=== PATIENT | male | born 1935 | race Caucasian/White ===

== ENCOUNTER 2017-11-24 19:19 | Inpatient (IN) ==
[2017-11-24] MEDS ORDERED: *HR* Midazolam HCl 2 MG/2 ML VIAL ONE (19:46)
--- NOTE | 2017-11-24 20:43 | Cardiology Consult Note ---
Date of Encounter: 11/24/17 Time of Encounter: 20:40 Assessment and Plan (1) Asystole Current Visit: Yes Status: Acute TVP placed in the ED through RIJ access. Rate 60bpm, 5ma output, .8 sensitivity. Position confirmed in the RV apex on Cxray Hold BB PPM in am (2) Syncope and collapse Current Visit: Yes Status: Acute Likely SSS with h/o Afib, hold BB Discussion w patient/family: The assessment and plan as outlined above was discussed with the patient and/or family members who expressed understanding and agreement. All questions were answered. Thank you for involving us in the care of your patient. Please call with any questions. History of Present Illness Consult date: 11/24/17 Consult reason: Syncope Chief complaint: Passed out History of present illness: Mr. Kenyon is a 81 year old male with h/o Afib on xarelto presents with syncope and severe bradycardia. Long pauses and periods of asystole noted on monitor, patient was started on levo for pressure support. Continued to have significant pauses deemed high risk and so TVP placed in the ED. ED Dr. David placed IJ cordis and TVP wire was advanced to 43 cm with capture. Sensitivity at .8 rate at 60 bpm and output at 5 ma. Patient tolerated procedure well, Cxray shows Pacer wire in the RV apex Past Med Surg Social Fam HX - Past Medical History Medical history: atrial fibrillation, COPD, hyperlipidemia, other Psychiatric history: no psych history - Social History Smoking Status: Former smoker Smokeless Tobacco Status: No Alcohol use: none Drug use: none Medications and Allergies Atorvastatin [Lipitor] 20 mg PO HS 12/02/15 [History] Rivaroxaban [Xarelto] 20 mg PO DAILY 12/02/15 [History] Albuterol Sulfate [Proair Hfa] 2 puff IH Q4H PRN 11/09/17 [History] Cholecalciferol (Vitamin D3) [Vitamin D3] 2,000 unit PO DAILY 11/09/17 [History] Metoprolol Succinate [Toprol Xl] 25 mg PO DAILY 11/09/17 [History] Tiotropium [Spiriva] 18 mcg IH 0700 11/09/17 [History] 3 Allergy/AdvReac Type Severity Reaction Status Date / Time codeine AdvReac Confusion Verified 08/16/16 12:48 brown cloth tape Allergy Rash Uncoded 11/09/17 13:00 All Systems Review: The remainder of the systems were reviewed and are negative Physical Examination Vital Signs, Last 4 Hours Temp Pulse Resp BP Pulse Ox 11/24/17 20:29 79 18 173/71 96 11/24/17 20:24 73 18 173/67 95 11/24/17 20:17 55 18 156/71 96 11/24/17 20:07 54 18 169/75 97 11/24/17 19:58 39 18 135/71 94 11/24/17 19:50 29 18 174/111 95 11/24/17 19:43 31 18 170/69 95 11/24/17 19:20 98.1 F 31 18 101/75 96 General: Conversant, No Apparent Distress HEENT: Atraumatic, Normocephaly, Mucus Membranes Moist Neck: No JVD, Normal carotid pulses Cardiac: Reg Rate and Rhythm, Normal S1 and S2, No Murmur Lungs: Normal Breath Sounds, No Wheeze, Rales, Rhonchi Neuro: Alert and responsive, No focal deficits noted Abdomen: Soft, Non-Tender Skin: No rashes noted on visualized skin Musculoskeletal: No Chest Wall Tenderness Extremities: No Clubbing, No Cyanosis, No Edema, Normal Pulses Consult Discharge Plan - Plan Referrals: Robert Martinez MD [Primary Care Provider] -
[2017-11-24 20:48] LABS: Basophils % 0.3 %; Eosinophils % 0.2 %; Hematocrit 46.7 % (37.5-50.1); Hemoglobin 15.6 g/dL (12.9-16.9); Immature Granulocytes % 0.5 % (0-4); Lymphocytes # 1.2 K/mcL (0.6-4.6); Lymphocytes % 14.1 %; Mean Corpuscular HGB Conc 33.4 g/dL (31.6-35.5); Mean Corpuscular Volume 86.8 fL (83.0-100.0); Mean Platelet Volume 10.7 fL (9.4-12.4); Monocytes # 0.6 K/mcL (0.0-1.3); Monocytes % 6.3 %; Neutrophils # 6.9 K/mcL (1.6-8.9); Platelet Count 201 K/mcL (140-400); Red Blood Count 5.38 M/mcL (4.19-5.50); Red Cell Distribution Width 13.7 % (11.5-14.5); Segmented Neutrophils % 78.6 %
[2017-11-24 20:55] LABS: INR 2.3; Prothrombin Time 24.8 Seconds (9.4-12.1)
[2017-11-24 20:58] LABS: Activated Partial Thrombo Time 37.2 Seconds (26.0-36.0)
[2017-11-24 21:00] LABS: BUN/Creatinine Ratio 23 (6-26); Blood Urea Nitrogen 20 mg/dL (8-23); Calcium 9.3 mg/dL (8.6-10.3); Carbon Dioxide 27 mEq/L (23-29); Chloride 104 mEq/L (98-107); Glucose 188 mg/dL (70-105); Osmolality,Calculated 292 (280-300); Potassium 4.6 mEq/L (3.5-5.1); Sodium 137 mEq/L (136-145); eGFR For Non-African Americans > 60 (> 60)
[2017-11-24] MEDS ORDERED: Lidocaine/EPI 1:100k 1% 20 ML VIAL INFILT STA (21:28)
--- NOTE | 2017-11-24 22:45 | Internal Med History&Physical ---
<Ceci Chin - Last Filed: 11/24/17 22:45> Date of Encounter: 11/24/17 Time of Encounter: 22:30 Assessment and Plan (1) Asystole Current visit: Yes Status: Acute Transcutaneous venous pacer was placed in his right IJ in ED. HR recorded as low as 29. In ED patient reportedly had long pauses and periods of asystole noted on monitor. He was given epi for pressure support Dr. Crump to place permanent pacemaker in morning NPO after midnight tele monitoring hold beta fox hold Xarelto (2) Syncope and collapse Current visit: Yes Status: Acute History of A fib. Likely sick sinus syndrome Syncopal episode at home at approximately 6:30 PM while he was standing up urinating and then woke up on the floor. He hit his head on the door. He denied any symptoms prior to syncopal episode. For the past year he has had episodes of "blacking out" where he becomes diaphoretic, lightheaded, warm sensation in chest. This is the 1st time he has passed out. EMS was called this morning where he had an episode by he was sitting on the couch however upon their arrival he felt back to normal and refusing to the hospital. Patient denies headache, neck pain. Head CT- no intracranial abnormality cervical spine CT normal CXR no acute cardiopulmonary process -holding Xarelto and beta fox (3) A-fib Current visit: Yes Status: Acute History of A fib on Toprol and Xarelto holding Xarelto Qualifiers: Qualified Code(s): I48.91 - Unspecified atrial fibrillation (4) COPD (chronic obstructive pulmonary disease) Current visit: Yes Status: Acute History of COPD taking Spiriva and pro-air as needed. 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 Decadron is listed in his home meds but he denies taking that. SPO2 95% on room air denies dyspnea or cough decreased breath sounds bilaterally, no wheezing or rhonchi continue dunebs and spiriva Qualifiers: Qualified Code(s): J44.9 - Chronic obstructive pulmonary disease, unspecified (5) Hyperlipidemia Current visit: Yes Status: Acute Continue home atorvastatin Qualifiers: Qualified Code(s): E78.5 - Hyperlipidemia, unspecified (6) DVT prophylaxis Current visit: Yes Status: Acute Heparin sq after permanent TVP is placed tomorrow Internal Medicine - H&P: HPI Chief complaint: syncope Admitted From: Emergency Dept Plans for Post Hospital Care: Home History of present illness: Mr. Kenyon is a 81 year old male PMH COPD, hyperlipidemia, A fib on xarelto who presented to [facility] after syncopal episode at home that occurred around 6:30pm. He stated that he was standing up urinating when all of a sudden he woke up on the ground. He had hit his head on the bathroom door. He does not recall the fall or any prior symptoms, his then called EMS. This is the 1st time that he has had a syncopal episode where he he has fallen. He stated that around 2pm today he was sitting on the couch when he became very diaphoretic and lightheaded. EMS was called and upon their arrival the patient was starting to feel normal again so he refused to go to the hospital. He reported that he has been having these symptoms for the past year where he "blacks out" and becomes diaphoretic, lightheaded, dizzy, sensation of warmth in his chest but she has never fallen. He was at [facility] ED 2 weeks ago for similar symptoms where they found he was bradycardiac and they monitored him for a while after which his heart rate improved and he was sent home. He denies chest pain, palpitations, dizziness, change in vision, fever, chills, shortness of breath, cough, nausea, vomiting, abdominal pain, urinary changes, diarrhea. He denies HI, stroke, recent travel, sickness, sick contacts. He is a former smoker that quit in 1972 but has worked around asbestos, denied drug and alcohol use. His alongside family members who help to corroborate the history. Upon examination the patient had been evaluated by cardiology Dr. Crump and a transcutaneous venous pacer was placed in his right IJ. HR recorded as low as 29. In ED patient reportedly had long pauses and periods of asystole noted on monitor. He was given epi for pressure support. Head CT and cervical spine CT were both normal. Chest x-ray showed no acute cardiopulmonary process. He is to be admitted to the ICU. He is a full code. Past Med Surg Social Fam HX - Past Medical History Medical history: atrial fibrillation, cancer (Melanoma on right temporal aspect of head), COPD, hyperlipidemia, other Psychiatric history: no psych history - Social History Smoking Status: Former smoker Smokeless Tobacco Status: No Alcohol use: none Drug use: none Current living situation: Home Activity Level: Independent ambulation - Family History Mother Hx Family Cancer: Yes (Leukemia) Internal Medicine - H&P: Meds Atorvastatin [Lipitor] 20 mg PO HS 12/02/15 [History] Rivaroxaban [Xarelto] 20 mg PO DAILY 12/02/15 [History] Albuterol Sulfate [Proair Hfa] 2 puff IH Q4H PRN 11/09/17 [History] Cholecalciferol (Vitamin D3) [Vitamin D3] 2,000 unit PO DAILY 11/09/17 [History] Metoprolol Succinate [Toprol Xl] 25 mg PO DAILY 11/09/17 [History] Tiotropium [Spiriva] 18 mcg IH 0700 11/09/17 [History] Ciclopirox Olamine [Ciclopirox] 1 appl TP BID PRN 11/24/17 [History] Dexamethasone [Decadron] 4 mg PO QAM 11/24/17 [History] Furosemide [Lasix] 20 mg PO DAILY PRN 11/24/17 [History] Triamcinolone Acet 0.1% CRM [Kenalog] 1 appl TP BID PRN 11/24/17 [History] 3 Allergy/AdvReac Type Severity Reaction Status Date / Time codeine AdvReac Confusion Verified 08/16/16 12:48 brown cloth tape Allergy Rash Uncoded 11/09/17 13:00 All Systems PM: A 10-system review of systems was performed and is negative for pertinent findings except as documented above in the HPI. - Constitutional Constitutional: falls, no chills, no fatigue, no fever(s) - EENT Eyes: no change in vision - Cardiovascular Cardiovascular ROS IM: diaphoresis, lightheadedness, syncope, no chest pain, no dyspnea, no palpitations - Respiratory Respiratory: no cough, no dyspnea, no wheezing - Gastrointestinal Gastrointestinal: no abdominal pain, no nausea, no vomiting - Genitourinary Genitourinary ROS male: no difficulty urinating - Integumentary Integumentary IM: rash (Right ankle) - Neurological Neurological ROS: frequent falls, no abnormal hearing, no abnormal speech, no behavioral changes, no confusion, no convulsions, no headache(s), no numbness, no tingling - Constitutional Vitals: Temp Pulse Resp BP Pulse Ox 98.1 F 79 18 158/47 95 11/24/17 19:20 11/24/17 22:01 11/24/17 22:01 11/24/17 22:01 11/24/17 22:01 General appearance: Present: A&O X 3, pleasant, no acute distress, answers questions appropriately - Head Head exam: Present: normocephalic. Absent: atraumatic (Abrasion on left temporal aspect of head), normal inspection - Expanded Head Exam Head exam expanded: Present: abrasion. Absent: general tenderness, hematoma, raccoon eyes - Neck Neck exam general surgery: Absent: tenderness - Respiratory Respiratory exam: Present: decreased breath sounds. Absent: rales, rhonchi - Cardiovascular Cardiovascular exam: Present: bradycardia. Absent: clicks - GI/Abdominal GI/Abdominal exam: Present: normal bowel sounds, soft. Absent: tenderness - Extremities Exam Extremities exam: Present: pedal edema (Bilateral lower extremity edema). Absent: calf tenderness, tenderness - Back Exam Back exam: Present: normal inspection - Neurological Exam Neurological exam: Present: alert, oriented X3. Absent: pronater drift, facial droop, speech deficit - Psychiatric Psychiatric exam: Present: normal affect, normal mood - Skin Skin exam: Present: dry, erythema (Right ankle), intact Internal Med - H&P Results - Labs CBC & Chem 7: 11/24/17 19:42 11/24/17 19:42 Labs: Short CBC 11/24/17 Range/Units 19:42 WBC 8.8 (4.3-11.1) K/mcL Hgb 15.6 (12.9-16.9) g/dL Hct 46.7 (37.5-50.1) % Plt Count 201 (140-400) K/mcL Neutrophils # 6.9 (1.6-8.9) K/mcL BMP 11/24/17 19:42 Sodium 137 Potassium 4.6 Chloride 104 Carbon Dioxide 27 BUN 20 Creatinine 0.88 Glucose 188 H Calcium 9.3 Cardiac Enzymes 11/24/17 Range/Units 19:42 Troponin I < 0.03 (< 0.04) ng/mL - Impressions ITS Impressions Chest X-Ray 11/24/17 20:37 IMPRESSION: New right IJ pacer and small right effusion. No pneumothorax. D/ / Ha Brady MD / Ha Brady MD Interpreting Provider: Ha Brady MD Cervical Spine CT 11/24/17 20:52 IMPRESSION: No acute abnormality of the cervical spine. Multiple subcentimeter nonspecific lymph nodes scattered throughout the neck. D/ / Kostas Brice MD / Kostas Brice MD Interpreting Provider: Kostas Brice MD Head CT 11/24/17 20:52 IMPRESSION: No acute intracranial abnormality. Stable age-appropriate atrophy. D/ / Marisol Hayward MD / Marisol Hayward MD Interpreting Provider: Marisol Hayward MD <Ronak Morrell - Last Filed: 11/25/17 06:40> Date of Encounter: 11/25/17 Internal Medicine - H&P: HPI History of present illness: Mr. Kenyon is a 81 year old male All Systems PM: A 10-system review of systems was performed and is negative for pertinent findings except as documented above in the HPI. - Constitutional Vitals: Temp Pulse Resp BP Pulse Ox 98.2 F 88 17 156/78 94 11/25/17 05:27 11/25/17 06:00 11/25/17 06:00 11/25/17 06:00 11/25/17 06:00 Internal Med - H&P Results - Labs CBC & Chem 7: 11/24/17 19:42 11/24/17 19:42 - Attending Attestation I have seen and examined this patient independently. I have discussed with resident physician Dr. Chin regarding the management plan. Agree with the documentation.
--- NOTE | 2017-11-24 22:54 | Emergency Department Note ---
Disposition Clinical Impression: Symptomatic bradycardia, Asystole Syncope Qualifiers: Syncope type: unspecified Qualified Code(s): R55 - Syncope and collapse Head trauma Qualifiers: Encounter type: initial encounter Qualified Code(s): S09.90XA - Unspecified injury of head, initial encounter Disposition: Admitted As Inpatient Condition: Good Time of Disposition: 21:20 General Adult HPI - General Chief complaint: ED Dizziness Stated complaint: dizzy, bradycardia, fell Time Seen by Provider: 11/24/17 20:37 Source: patient, EMS Limitations: no limitations Nursing Notes Reviewed: Yes Vital Signs Reviewed: Yes - History of Present Illness HPI Narrative: 81-year-old male presents to emergency department after a syncopal episode. On initial evaluation patient is bradycardic. Patient states he had recently finished using the commode when he suddenly syncopized and woke up on the ground. During initial evaluation the patient is bradycardic with an irregular rhythm. While in the emergency department he had multiple episodes of asystole where he syncopized however this lasted a few seconds before he woke. The concrete wall grinder operator was contacted immediately after the initial evaluation. Patient was initially given atropine 0.5 mg 3 doses without significant improvement of his symptoms. Patient was then started on epi drip and he did not have further episodes of asystole. Cardiology arrived at bedside and evaluated the patient. I placed a [place]-Carlos catheter with the help of the concrete wall grinder operator after verbal and written consent obtained from patient after discussion of risks and benefits. Pain Scale: 0 - Related Data Home Medications Medication Instructions Recorded Confirmed Atorvastatin [Lipitor] 20 mg PO HS 12/02/15 11/24/17 Rivaroxaban [Xarelto] 20 mg PO DAILY 12/02/15 11/24/17 Albuterol Sulfate [Proair Hfa] 2 puff IH Q4H PRN 11/09/17 11/24/17 Cholecalciferol (Vitamin D3) 2,000 unit PO DAILY 11/09/17 11/24/17 [Vitamin D3] Metoprolol Succinate [Toprol Xl] 25 mg PO DAILY 11/09/17 11/24/17 Tiotropium [Spiriva] 18 mcg IH 0700 11/09/17 11/24/17 Ciclopirox Olamine [Ciclopirox] 1 appl TP BID PRN 11/24/17 11/24/17 Dexamethasone [Decadron] 4 mg PO QAM 11/24/17 11/24/17 Furosemide [Lasix] 20 mg PO DAILY PRN 11/24/17 11/24/17 Triamcinolone Acet 0.1% CRM 1 appl TP BID PRN 11/24/17 11/24/17 [Kenalog] Allergies Allergy/AdvReac Type Severity Reaction Status Date / Time codeine AdvReac Confusion Verified 08/16/16 12:48 brown cloth tape Allergy Rash Uncoded 11/09/17 13:00 All systems ED: reviewed and negative except as stated. Review of Systems: As Per HPI Past Medical History - Past Medical History Attestation: Yes The following information was validated with the patient. Source: patient Medical history: Reports: atrial fibrillation, COPD, hyperlipidemia, other Psychiatric history: Reports: no psych history - Social History Smoking Status: Former smoker Smokeless Tobacco Status: No Alcohol use: Reports: none Drug use: Reports: none Physical Exam General: Alert and in no acute distress Skin: Warm, dry Head: Normocephalic, laceration to occiput from fall Neck: Supple, trachea midline and no tenderness Cardiovascular: Bradycardia with episodes of asystole Respiratory: CTAB, no wheezing, cough, or respiratory distress Musculoskeletal: Normal strength, no tenderness, swelling or deformity GI: Soft, nontender, nondistended. Bowel sounds present Neuro: A&O to person, place, time and situation. Psychiatric: cooperative and appropriate mood and affect. - General Limitations: no limitations General appearance: alert, in no apparent distress Course Vital Signs Temperature 98.1 F 11/24/17 19:20 Pulse Rate 31 11/24/17 19:20 Respiratory Rate 18 11/24/17 19:20 Blood Pressure 101/75 11/24/17 19:20 O2 Sat by Pulse Oximetry 96 11/24/17 19:20 Temperature 98.1 F 11/24/17 19:20 Pulse Rate 79 11/24/17 22:01 Respiratory Rate 18 11/24/17 22:01 Blood Pressure 158/47 11/24/17 22:01 O2 Sat by Pulse Oximetry 95 11/24/17 22:01 Oxygen Delivery Oxygen Delivery Room Air Procedures - Laceration Laceration 1 Site: scalp Side (If applicable): left Size (cm): 3 Description: linear Depth: simple, single layer Local Anesthetic: lidocaine 1%, with epi Amount of Anesthesia Used (mL): 10 Skin layer closed with: denise Number of sutures/denise: 5 Technique: simple, interrupted - Ultrasound-Other Narrative: Procedure: Internal jugular central venous catheter, US guided. [place]-Carlos catheter Indication: Hypotension, bradycardia Consent: Written consent obtained after discussion of risks and benefits Procedure summary: Hands washed prior to procedure. Time out was performed. The patient's right neck was prepped and draped in sterile fashion using chlorhexidine scrub. Anesthesia was achieved with 1% lidocaine. The right internal jugular vein was accessed under ultrasound guidance using a finder needle and sheath. A guidewire was advanced through the sheath. A small incision was made with a 10 blade scalpel and the sheath was exchanged for a dilator over the guidewire until appropriate dilation was obtained. The dilator was removed leaving intact Cortis lumen. S1 Carlos catheter was then inserted, the balloon was inflated and floated to the right ventricle receiving capture. At time of procedure completion, all ports aspirated and flushed properly. Full sterile gowning and draping used during procedure. Postprocedure x-ray shows the tip of the catheter within the right ventricle Complications: None Estimated blood loss: 5 mL Medical Decision Making - Lab Data Result diagrams: 11/24/17 19:42 11/24/17 19:42 Lab Results 11/24/17 11/24/17 11/24/17 Range/Units 19:42 19:42 19:42 WBC 8.8 (4.3-11.1) K/mcL RBC 5.38 (4.19-5.50) M/mcL Hgb 15.6 (12.9-16.9) g/dL Hct 46.7 (37.5-50.1) % MCV 86.8 (83.0-100.0) fL MCH 29.0 (28.0-33.3) pg MCHC 33.4 (31.6-35.5) g/dL RDW 13.7 (11.5-14.5) % Plt Count 201 (140-400) K/mcL MPV 10.7 (9.4-12.4) fL Immature Gran % 0.5 (0-4) % Seg Neutrophils % 78.6 % Lymphocytes % 14.1 % Monocytes % 6.3 % Eosinophils % 0.2 % Basophils % 0.3 % Neutrophils # 6.9 (1.6-8.9) K/mcL Lymphocytes # 1.2 (0.6-4.6) K/mcL Monocytes # 0.6 (0.0-1.3) K/mcL Eosinophils # 0.0 (0.0-0.6) K/mcL Basophils # 0.0 (0.0-0.2) K/mcL PT 24.8 H (9.4-12.1) Seconds INR 2.3 APTT 37.2 H (26.0-36.0) Seconds Sodium 137 (136-145) mEq/L Potassium 4.6 (3.5-5.1) mEq/L Chloride 104 (98-107) mEq/L Carbon Dioxide 27 (23-29) mEq/L BUN 20 (8-23) mg/dL Creatinine 0.88 (0.70-1.30) mg/dL Est GFR ( Amer) > 60 (> 60) Est GFR (Non-Af Amer) > 60 (> 60) BUN/Creatinine Ratio 23 (6-26) Glucose 188 H (70-105) mg/dL Calculated Osmolality 292 (280-300) Calcium 9.3 (8.6-10.3) mg/dL Troponin I (< 0.04) ng/mL 11/24/17 Range/Units 19:42 WBC (4.3-11.1) K/mcL RBC (4.19-5.50) M/mcL Hgb (12.9-16.9) g/dL Hct (37.5-50.1) % MCV (83.0-100.0) fL MCH (28.0-33.3) pg MCHC (31.6-35.5) g/dL RDW (11.5-14.5) % Plt Count (140-400) K/mcL MPV (9.4-12.4) fL Immature Gran % (0-4) % Seg Neutrophils % % Lymphocytes % % Monocytes % % Eosinophils % % Basophils % % Neutrophils # (1.6-8.9) K/mcL Lymphocytes # (0.6-4.6) K/mcL Monocytes # (0.0-1.3) K/mcL Eosinophils # (0.0-0.6) K/mcL Basophils # (0.0-0.2) K/mcL PT (9.4-12.1) Seconds INR APTT (26.0-36.0) Seconds Sodium (136-145) mEq/L Potassium (3.5-5.1) mEq/L Chloride (98-107) mEq/L Carbon Dioxide (23-29) mEq/L BUN (8-23) mg/dL Creatinine (0.70-1.30) mg/dL Est GFR ( Amer) (> 60) Est GFR (Non-Af Amer) (> 60) BUN/Creatinine Ratio (6-26) Glucose (70-105) mg/dL Calculated Osmolality (280-300) Calcium (8.6-10.3) mg/dL Troponin I < 0.03 (< 0.04) ng/mL Critical Care Time Critical Care Time: Yes Total Critical Care Time: 64 Attestation: The high probability of a clinically significant, sudden or life threatening deterioration of the cardiovascular system(s) required my full and direct attention, intervention and personal management. The aggregate critical care time was 64 minutes. This time is in addition to time spent performing reported procedures but includes the following: x Data Review and interpretation x Patient assessment and monitoring of vital signs x Documentation x Medication orders and management
[2017-11-24] MEDS ORDERED: Naloxone 0.4 MG/ML INJ IVP PRN (23:10)
[2017-11-24] MEDS ORDERED: Ipratropium/Albuterol Neb 3 ML IH PRN (23:13)
--- NOTE | 2017-11-25 08:33 | Internal Med Progress Note ---
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 today Qualifiers: Atrial fibrillation type: chronic Qualified Code(s): I48.2 - Chronic atrial fibrillation (4) Hyperlipidemia Current Visit: Yes Status: Chronic Assessment and plan: Chronic questionable medication Qualifiers: Hyperlipidemia type: pure hypercholesterolemia Qualified Code(s): E78.00 - Pure hypercholesterolemia, unspecified; E78.0 - Pure hypercholesterolemia - Subjective Interval history: Patient with history of COPD, obesity, high cholesterol, chronic atrial fibrillation on Xarelto low dose of beta fox patient admitted with severe bradycardia and some pauses requiring temporary pacemaker. The pacemaker is in proper place with proper sensing and capturing 100% PACED WITH OCCASIONAL PVCS. PATIENT IS ASYMPTOMATIC at present no CHEST PAIN HEMODYNAMICALLY STABLE AT THIS POINT CARDIOLOGIC PLAN ON PERMANENT PACEMAKER TODAY. - Constitutional Vitals: Temp Pulse Resp BP Pulse Ox 98.3 F 94 18 134/70 93 11/25/17 07:25 11/25/17 08:00 11/25/17 08:00 11/25/17 08:00 11/25/17 08:00 General appearance: Present: A&O X 3, pleasant, no acute distress, answers questions appropriately - Head Head exam: Present: atraumatic, normocephalic - Eye Eye exam: Present: PERRL, conjuntiva pink, sclera anicteric Pupils: Present: PERRL - Respiratory Respiratory exam: Present: CTAB. Absent: accessory muscle use, rales, rhonchi, wheezes - Cardiovascular Cardiovascular exam: Present: RRR, +S1, +S2. Absent: diastolic murmur, gallop, rubs, systolic murmur - GI/Abdominal GI/Abdominal exam: Present: normal bowel sounds, soft, no peritoneal signs. Absent: distended, tenderness - Extremities Exam Extremities exam: Present: warm, radial pulses palpable and symmetrical. Absent : calf tenderness, cyanotic, pedal edema Internal Medicine: Result - Labs CBC & Chem 7: 11/24/17 19:42 11/24/17 19:42 - ABG Interpretation ABG results: PT/INR, D-dimer PT 24.8 Seconds (9.4-12.1) H 11/24/17 19:42 Consult Discharge Plan - Plan Referrals: Robert Martinez MD [Primary Care Provider] -
[2017-11-25 09:07] LABS: BUN/Creatinine Ratio 19 (6-26); Blood Urea Nitrogen 19 mg/dL (8-23); Calcium 8.9 mg/dL (8.6-10.3); Carbon Dioxide 30 mEq/L (23-29); Chloride 107 mEq/L (98-107); Glucose 126 mg/dL (70-105); Magnesium 2.1 mg/dL (1.6-2.6); Osmolality,Calculated 294 (280-300); Potassium 4.6 mEq/L (3.5-5.1); Sodium 140 mEq/L (136-145); eGFR For Non-African Americans > 60 (> 60)
[2017-11-25] MEDS: Tiotropium 18 MCG inhalation IH SCH (09:12)
[2017-11-25 09:46] LABS: Basophils % 0.4 %; Eosinophils # 0.2 K/mcL (0.0-0.6); Eosinophils % 1.8 %; Hematocrit 39.6 % (37.5-50.1); Immature Granulocytes % 0.4 % (0-4); Lymphocytes # 2.4 K/mcL (0.6-4.6); Lymphocytes % 24.5 %; Mean Corpuscular HGB Conc 33.6 g/dL (31.6-35.5); Mean Corpuscular Hemoglobin 29.4 pg (28.0-33.3); Mean Corpuscular Volume 87.6 fL (83.0-100.0); Monocytes # 0.8 K/mcL (0.0-1.3); Monocytes % 8.2 %; Neutrophils # 6.4 K/mcL (1.6-8.9); Platelet Count 165 K/mcL (140-400); Red Blood Count 4.52 M/mcL (4.19-5.50); Red Cell Distribution Width 14.2 % (11.5-14.5); Segmented Neutrophils % 64.7 %
[2017-11-25 09:55] LABS: Hemoglobin 13.3 g/dL (12.9-16.9)
--- NOTE | 2017-11-25 10:51 | Electrophysiology Consult Note ---
<Elmira Meraz - Last Filed: 11/25/17 12:39> Date of Encounter: 11/25/17 Time of Encounter: 10:30 Assessment and Plan (1) Asystole Current Visit: Yes Status: Acute Per Cardiology: reported multiple episodes of asystole requiring placement of emergent temporary pacemaker. Epi gtt now off. Underlying rhythm appears to be atrial fibrillation with slow ventricular response, HR 30's. Pt. reports multiple black out episodes since last fall. Presented yesterday after syncopal episode. Underlying rhythm this afternoon--afib with slow ventricular response, HR 30's. Discussed and reviewed with Dr. Yifan Huizar, recommend PPM. Plan for PPM today. (2) Syncope and collapse Current Visit: Yes Status: Acute Suspect SSS, hx of Afib. Plan as above. (3) A-fib Current Visit: Yes Status: Chronic Reported hx of PAF, has been on Toprol XL 25 mg daily and Xarelto 20 mg daily. Last dose of betablocker/AC on 11/24/17 AM. Hold Xarelto x1 week following procedure. Qualifiers: Atrial fibrillation type: paroxysmal Qualified Code(s): I48.0 - Paroxysmal atrial fibrillation Discussion w patient/family: The assessment and plan as outlined above was discussed with the patient and/or family members who expressed understanding and agreement. All questions were answered. Thank you for involving us in the care of your patient. Please call with any questions. History of Present Illness Consult date: 11/25/17 Requesting physician: Olivn Crump Consult reason: SSS Chief complaint: Syncope History of present illness: Mr. 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 He reports frequent "blackout" spells since last fall however has never been as severe. He fell yesterday and hit head--CT head negative for acute abnormality. He notes that he was scheduled for holter monitor application today. Upon arrival to the ED his HR was 20 with frequent pauses, he was given atropine 0.5 x3 doses and started on epi gtt, Dr. Crump was called and placed temporary pacer in the ED. Has been on Toprol XL 25 mg daily. He is on Xarelto for Afib, last dose 11/24/17 AM. Prior CV testing: TTE 04/05/15: LVEF 50-55%, mild left atrial enlargement, normal RV, mild MR, mild TR, est RVSP 33 mmHg TTE 09/16/17: LVEF 55%, indeterminate diastolic dysfunction, normal RV structure and function, mild PH, no significant valvular dysfunction Past Med Surg Social Fam HX - Past Medical History Medical history: atrial fibrillation, cancer (Melanoma on right temporal aspect of head), COPD, hyperlipidemia, other Psychiatric history: no psych history - Past Surgical History Surgical History: herniorrhaphy, orthopedic, other - Social History Smoking Status: Former smoker Smokeless Tobacco Status: No Alcohol use: none Drug use: none - Family History Mother Hx Family Cancer: Yes (Leukemia) Medications and Allergies Atorvastatin [Lipitor] 20 mg PO HS 12/02/15 [History] Rivaroxaban [Xarelto] 20 mg PO DAILY 12/02/15 [History] Albuterol Sulfate [Proair Hfa] 2 puff IH Q4H PRN 11/09/17 [History] Cholecalciferol (Vitamin D3) [Vitamin D3] 2,000 unit PO DAILY 11/09/17 [History] Metoprolol Succinate [Toprol Xl] 25 mg PO DAILY 11/09/17 [History] Tiotropium [Spiriva] 18 mcg IH 0700 11/09/17 [History] Ciclopirox Olamine [Ciclopirox] 1 appl TP BID PRN 11/24/17 [History] Dexamethasone [Decadron] 4 mg PO QAM 11/24/17 [History] Furosemide [Lasix] 20 mg PO DAILY PRN 11/24/17 [History] Triamcinolone Acet 0.1% CRM [Kenalog] 1 appl TP BID PRN 11/24/17 [History] 3 Allergy/AdvReac Type Severity Reaction Status Date / Time codeine AdvReac Confusion Verified 08/16/16 12:48 brown cloth tape Allergy Rash Uncoded 11/09/17 13:00 All Systems Review: The remainder of the systems were reviewed and are negative - Cardiovascular Cardiovascular: as per HPI Physical Examination Vital Signs, Last 4 Hours Temp Pulse Resp BP Pulse Ox 11/25/17 10:00 78 20 161/74 93 11/25/17 09:12 18 92 11/25/17 09:00 76 18 148/85 92 11/25/17 08:00 94 18 134/70 93 11/25/17 07:25 98.3 F 11/25/17 07:00 76 16 152/75 94 General: Conversant HEENT: Atraumatic, Normocephaly Cardiac: Other (irregularly irregular) Lungs: Normal Breath Sounds Neuro: Alert and responsive Abdomen: Soft Skin: No rashes noted on visualized skin Musculoskeletal: No Chest Wall Tenderness Extremities: Other (LE edema, pt. states is chronic) Results 11/25/17 09:32 11/25/17 08:28 Lab Results 11/25/17 11/25/17 08:28 09:32 WBC 10.0 Hgb 13.3 D Hct 39.6 Plt Count 165 Sodium 140 Potassium 4.6 Chloride 107 Carbon Dioxide 30 H BUN 19 Creatinine 0.98 Glucose 126 H Calcium 8.9 Magnesium 2.1 Active Medications Albuterol Sulfate (Albuterol Inhaler) 2 puff IH [id number] PRN PRN Reason: Shortness Of Breath/Wheezing Stop: 05/27/18 10:16 Albuterol/Ipratropium (Duoneb) 3 ml IH [id number] PRN PRN Reason: Shortness Of Breath/Wheezing Stop: 05/26/18 23:14 Atorvastatin Calcium (Lipitor) 20 mg PO HS EVANGELISTA Stop: 05/27/18 21:01 Naloxone HCl (Narcan) 0.4 mg IVP Q2MIN PRN PRN Reason: SEE COMMENTS Stop: 05/26/18 23:11 Tiotropium Richardson (Spiriva) 18 mcg IH 0700 EVANGELISTA Stop: 05/27/18 07:01 Last Admin: 11/25/17 09:12 Dose: 18 mcg - Imaging and Cardiology Echo: report reviewed Other Results: paced rhythm - EKG Interpretation EKG results cardiology: personally reviewed Consult Discharge Plan - Plan Referrals: Roebrt Martinez MD [Primary Care Provider] - <Yifan Huizar - Last Filed: 11/25/17 17:43> Date of Encounter: 11/25/17 - Attending Attestation I have personally performed a face to face evaluation on this patient. I have reviewed and agree with the care plan. History and Exam by me shows: AF with SVR and pauses. Temp pacer placed, will place permanent pacer today. AF noted to be paroxsysmal, therefore will place dual chamber. Assessment and Plan Discussion w patient/family: The assessment and plan as outlined above was discussed with the patient and/or family members who expressed understanding and agreement. All questions were answered. Thank you for involving us in the care of your patient. Please call with any questions. History of Present Illness History of present illness: Mr. Kenyon is a 81 year old male All Systems Review: The remainder of the systems were reviewed and are negative Physical Examination Vital Signs, Last 4 Hours Pulse Resp BP Pulse Ox 11/25/17 15:00 70 18 163/86 95 11/25/17 14:00 69 18 142/88 94 Results 11/25/17 09:32 11/25/17 08:28 Lab Results 11/25/17 11/25/17 08:28 09:32 WBC 10.0 Hgb 13.3 D Hct 39.6 Plt Count 165 Sodium 140 Potassium 4.6 Chloride 107 Carbon Dioxide 30 H BUN 19 Creatinine 0.98 Glucose 126 H Calcium 8.9 Magnesium 2.1
[2017-11-25] MEDS ORDERED: CeFAZolin Syr 2,000MG/20 ML 2,000 MG/20 ML SYRINGE IVPB ONE (12:55)
[2017-11-25] MEDS ORDERED: Water for inj. (sterile) 10 ML IV ONE (15:46)
[2017-11-25] MEDS ORDERED: 0.9 % Sodium Chloride 500 ML ONE (15:47)
--- NOTE | 2017-11-25 15:52 | Pre-Sedation Evaluation ---
Pre-sedation evaluation - Pre-sedation checklist Date of procedure: 11/25/17 Procedure: Pacer placement Recent Vitals: Last Vital Signs Temp 98.3 F 11/25/17 07:25 Pulse 70 11/25/17 15:00 Resp 18 11/25/17 15:00 BP 163/86 11/25/17 15:00 Pulse Ox 95 11/25/17 15:00 H&P (including ROS) documented in medical record: Yes Previous reaction to sedatives/anesthetics: No Dietary Status: NPO after Midnight Dentition: dentures removed Possible difficult airway: No ASA Classification *see protocol: CLASS II-Mild systemic disease Plan of Care: Pt appropriate candidate for procedure/moderate/conscious sedation , Risks/benefits of procedure/sedation discussed w/ patient/family
[2017-11-25] MEDS ORDERED: 0.9 % Sodium Chloride 1,000 ML ONE (16:08)
[2017-11-25] MEDS ORDERED: *HR* Midazolam HCl 2 MG/2 ML VIAL ONE (16:11)
[2017-11-25] MEDS ORDERED: *HR* FentaNYL (PF) 100 MCG/2 ML VIAL ONE (16:11)
[2017-11-25] MEDS ORDERED: ISOVUE-370 200 ML INFUS..BTL IV ONE (16:12)
[2017-11-25] MEDS: Metoprolol XL (24 HR) Succ 25 MG TAB.ER.24H PO SCH (20:07)
[2017-11-26] MEDS: Tiotropium 18 MCG inhalation IH SCH (08:13)
[2017-11-26] MEDS: Metoprolol XL (24 HR) Succ 25 MG TAB.ER.24H PO SCH (08:44)
[2017-11-26] MEDS ORDERED: Furosemide 20 MG/2 ML VIAL IVP ONE ×2 (10:36→19:05)
--- NOTE | 2017-11-26 10:37 | Electrophysiology ProgressNote ---
Date of Encounter: 11/26/17 Time of Encounter: 10:45 Assessment and Plan (1) Asystole Current Visit: Yes Status: Acute Per Cardiology: reported multiple episodes of asystole requiring placement of emergent temporary pacemaker. Epi gtt now off. Underlying rhythm appears to be atrial fibrillation with slow ventricular response, HR 30's. Pt. reports multiple black out episodes since last fall. Presented yesterday after syncopal episode. s/p implant of [employer] dual chamber PPM. CXR yesterday afternoon and this AM s/p--no pneumothorax. Device check completed this morning demonstrated normal functioning PPM. Agree with resuming betablocker given hx of PAF. Post PPM discharge instruction discussed including activity limitations, restrictions and care of site. No further inpatient recommendations from Cardiology, will sign-off. Will coordinate outpatient follow-up in [facility]. (2) Syncope and collapse Current Visit: Yes Status: Acute Suspect SSS, hx of Afib. Plan as above. (3) A-fib Current Visit: Yes Status: Chronic Reported hx of PAF, has been on Toprol XL 25 mg daily and Xarelto 20 mg daily. Betablocker resumed. Hold Xarelto x1 week following procedure. Qualifiers: Atrial fibrillation type: chronic Qualified Code(s): I48.2 - Chronic atrial fibrillation Discussion w patient/family: The assessment and plan as outlined above was discussed with the patient and/or family members who expressed understanding and agreement. All questions were answered. Thank you for involving us in the care of your patient. Please call with any questions. The patient was discussed and reviewed with Dr. Yifan Huizar; EP will sign-off, please call with questions. Subjective Principal diagnosis: Afib with slow ventricular response Interval history: Seen and examined. Patient up to bedside chair. No complaints upon exam today. No recurrent episodes of dizziness, syncope reported. Reports mild shortness of breath. Objective Vital Signs, Last 4 Hours Temp Pulse Resp BP Pulse Ox 11/26/17 10:00 69 18 141/81 92 11/26/17 09:48 76 18 178/91 93 11/26/17 08:15 18 91 11/26/17 08:00 70 18 163/100 91 11/26/17 07:44 98.4 F 11/26/17 07:00 70 20 166/94 93 General: Conversant HEENT: Atraumatic, Normocephaly Cardiac: Reg Rate and Rhythm, Normal S1 and S2 Lungs: Other (mildly decreased bibasilar) Neuro: Alert and responsive Abdomen: Soft Skin: No rashes noted on visualized skin Musculoskeletal: No Chest Wall Tenderness Extremities: Other (mild BLE edema.) Other: left upper chest wall PPM incision site: dressing removed. Site clean, dry and intact. Steri strips present. very mild amount of oozing noted. Results 11/25/17 09:32 11/25/17 08:28 Active Medications Albuterol Sulfate (Albuterol Inhaler) 2 puff IH [id number] PRN PRN Reason: Shortness Of Breath/Wheezing Stop: 05/27/18 10:16 Albuterol/Ipratropium (Duoneb) 3 ml IH [id number] PRN PRN Reason: Shortness Of Breath/Wheezing Stop: 05/26/18 23:14 Atorvastatin Calcium (Lipitor) 20 mg PO HS COUNTS INCLUDE 234 BEDS AT THE [facility] Stop: 05/27/18 21:01 Last Admin: 11/25/17 20:07 Dose: 20 mg Furosemide (Lasix) 40 mg IVP DAILY COUNTS INCLUDE 234 BEDS AT THE [facility] Stop: 05/29/18 09:01 Metoprolol Succinate (Toprol Xl) 25 mg PO DAILY COUNTS INCLUDE 234 BEDS AT THE [facility] Stop: 05/27/18 18:45 Last Admin: 11/26/17 08:44 Dose: 25 mg Naloxone HCl (Narcan) 0.4 mg IVP Q2MIN PRN PRN Reason: SEE COMMENTS Stop: 05/26/18 23:11 Tiotropium Tyler (Spiriva) 18 mcg IH 0700 COUNTS INCLUDE 234 BEDS AT THE [facility] Stop: 05/27/18 07:01 Last Admin: 11/26/17 08:13 Dose: 18 mcg - Imaging and Cardiology Echo: report reviewed - EKG Interpretation EKG results cardiology: personally reviewed Consult Discharge Plan - Plan Instructions: Pacemaker (DC) Additional Instructions: Hold Xarelto for 1 week following PPM; resume on 12/02/17 ACTIVITY: Moderate activity for the next 7 days. No lifting more than 5 pounds ( gallon of milk) for 4-6 weeks. Avoid lifting your arm on the same side as the device for 4 weeks. BATHING /SHOWERING: Do not remove the large bandage over the site for 2 days. Do not allow the device to get wet for 7-10 days. You may bathe/shower, but do not use soap and water on the site. When bathing, keep the site dry by covering with Saran wrap or a towel. WOUND CARE: The white steri-strips will start to peel away and come off after 14 days, or your doctor will remove them after [address] into or on top of the incision. Do not use cotton swabs. Do not use any antibiotic ointment or Vitamin E on the site. REMINDERS: You may use electrical devices, such as, microwaves, hair dryers, electric razors, electric blankets, etc. as long as they are in good condition and kept 6 -8 inches away from the device. It is recommended to use cell phones on the opposite side of your device. Notify security personnel at the airport that you have a device before you go through airport security screening. When at places with security monitors, such as a grocery store, do not linger near these monitors. It is fine to walk past them in a normal manner. Refer to your owners manual for more specific directions. CARRY YOUR PACEMAKER/ICD CARD WITH YOU AT ALL TIMES Return to work as instructed per physician Resume driving as instructed per physician Keep all scheduled follow up appointments Resume medications as instructed Contact [facility] ( ) if: You develop excessive bleeding from insertion or wound site not controlled by applying pressure You develop a fever greater than 101 degrees Fahrenheit Your incision becomes reddened at or around the site Your incision develops yellowish or greenish drainage or development of white pimple-like bumps You experience excessive pain You develop swelling in your ankles You experience muscle switching You develop excessive hiccupping If you experience chest pain, shortness of breath, dizziness, or extreme tiredness, stop the activity and rest. Please notify [facility] office if you experience any of these symptoms and they are not relieved by rest please call 911!. Referrals: Robert Martinez MD [Primary Care Provider] - Yifan Huizar MD [Partnered Physician] - 12/02/17 3:00 pm
--- NOTE | 2017-11-26 11:13 | Internal Med Progress Note ---
Date of Encounter: 11/26/17 Time of Encounter: 11:11 - Assessment and plan (1) Syncope and collapse Current Visit: Yes Status: Acute Assessment and plan: atril fib with complete heart block (2) COPD (chronic obstructive pulmonary disease) Current Visit: Yes Status: Chronic Assessment and plan: copd with concern for pneumonia worsening chest x ray will consult pulmonary for evaluation Qualifiers: COPD type: unspecified COPD Qualified Code(s): J44.9 - Chronic obstructive pulmonary disease, unspecified (3) A-fib Current Visit: Yes Status: Chronic Assessment and plan: chronic on anticoagulations Qualifiers: Atrial fibrillation type: chronic Qualified Code(s): I48.2 - Chronic atrial fibrillation (4) Hyperlipidemia Current Visit: Yes Status: Chronic Qualifiers: Hyperlipidemia type: pure hypercholesterolemia Qualified Code(s): E78.00 - Pure hypercholesterolemia, unspecified; E78.0 - Pure hypercholesterolemia (5) CHF (congestive heart failure) Current Visit: Yes Status: Acute Assessment and plan: acute chf will check echo and start iv laisx Qualifiers: Heart failure type: unspecified Heart failure chronicity: acute Qualified Code(s): I50.9 - Heart failure, unspecified - Subjective Interval history: Patient with history of COPD, obesity, high cholesterol, chronic atrial fibrillation on Xarelto low dose of beta fox patient admitted with severe bradycardia and some pauses requiring temporary pacemaker. The pacemaker is in proper place with proper sensing and capturing 100% PACED WITH OCCASIONAL PVCS. PATIENT IS ASYMPTOMATIC at present no CHEST PAIN HEMODYNAMICALLY STABLE AT THIS POINT CARDIOLOGIC PLAN ON PERMANENT PACEMAKER TODAY. patient underwent PPM placement and pacing and capturing ok reports has been coughing up thich yellow sputm chest x ray today abnormal worsening right opacities wbc slight increased no chills - Constitutional Vitals: Temp Pulse Resp BP Pulse Ox 98.4 F 69 18 141/81 92 11/26/17 07:44 11/26/17 10:00 11/26/17 10:00 11/26/17 10:00 11/26/17 10:00 General appearance: Present: A&O X 3, pleasant, no acute distress, answers questions appropriately - Eye Eye exam: Present: PERRL, conjuntiva pink, sclera anicteric Pupils: Present: PERRL - Neck Neck exam general surgery: Present: supple, trachea midline. Absent: lymphadenopathy - Respiratory Respiratory exam: Present: rales, rhonchi - GI/Abdominal GI/Abdominal exam: Present: normal bowel sounds, soft, no peritoneal signs. Absent: distended, tenderness Internal Medicine: Result - Labs CBC & Chem 7: 11/25/17 09:32 11/25/17 08:28 - ABG Interpretation ABG results: PT/INR, D-dimer PT 24.8 Seconds (9.4-12.1) H 11/24/17 19:42 - Impressions Impressions Chest X-Ray 11/25/17 17:18 IMPRESSION: 1. Cardiomegaly. 2. Calcific atherosclerosis aorta. 3. No pneumothorax evident following left-sided pacemaker placement. 4. Senescent pulmonary changes. D/ / Jozef Parham / Jozef Parham Interpreting Provider: Jozef Parham Chest X-Ray 11/26/17 06:00 IMPRESSION: 1. Increased bibasilar airspace opacities worse on the right, most likely atelectasis. 2. Unchanged bilateral pleural effusions, larger on the right. 3. Pulmonary vascular congestion. D/ / Yuri Law MD / Yuri Law MD Interpreting Provider: Yuri Law MD Consult Discharge Plan - Plan Referrals: Robert Martinez MD [Primary Care Provider] -
--- NOTE | 2017-11-26 11:15 | Pulmonology Consult Note ---
<Alvarado Cox - Last Filed: 11/26/17 13:27> Date of Encounter: 11/26/17 Time of Encounter: 12:16 Assessment and Plan (1) Aspiration pneumonia Current Visit: Yes Status: Suspected Suspected aspiration pneumonia with atelectasis in setting of syncope/collapse due to severe bradycardia (s/p PPM 11/25) Cultures ordered/pending. Duonebs, symbicort, incentive spirometry. Will start patient on Augmentin 875mg TID x5days. Qualifiers: Aspiration pneumonia type: unspecified Laterality: right Lung location: lower lobe of lung Qualified Code(s): J69.0 - Pneumonitis due to inhalation of food and vomit (2) Asystole Current Visit: Yes Status: Acute Pt reporting multiple syncopal episodes, onset Fall 2016. Patient presented to ED after syncopal episode 11/25 at 6:30pm. Unwitnessed, patient reports he was urinating standing, and woke up on the ground. ED heart rate in the low 30s interspersed with periods of asystole on monitor. Given epinephrine for pressure support. Emergent transvenous pacer placed by Dr. Crump in ED pacing at 60. Today 3/ patient is s/p PPM ([employer] Dual Chamber). (3) Syncope and collapse Current Visit: Yes Status: Acute Per assessment in (2). (4) COPD (chronic obstructive pulmonary disease) Current Visit: Yes Status: Chronic Former smoker quit 1972. A/P per (1). Qualifiers: COPD type: unspecified COPD Qualified Code(s): J44.9 - Chronic obstructive pulmonary disease, unspecified (5) A-fib Current Visit: Yes Status: Chronic Reported hx of PAF, has been on Toprol XL 25 mg daily and Xarelto 20 mg daily. Betablocker resumed. Holding Xarelto x1 week following procedure. Qualifiers: Atrial fibrillation type: chronic Qualified Code(s): I48.2 - Chronic atrial fibrillation (6) DVT prophylaxis Current Visit: Yes Status: Acute Patient assessed sitting in chair by bedside; ongoing early ambulation for DVT prophylaxis. Can switch to EPCDs if desired. History of Present Illness Consult date: 11/26/17 Requesting physician: Ras Carranza Reason for consult: pneumonia Chief complaint: productive cough Past Med Surg Social Fam HX - Past Medical History Medical history: atrial fibrillation, cancer (Melanoma on right temporal aspect of head), COPD, hyperlipidemia, other Psychiatric history: no psych history - Past Surgical History Surgical History: herniorrhaphy, orthopedic, other - Social History Smoking Status: Former smoker Smokeless Tobacco Status: No Alcohol use: none Drug use: none - Family History Mother Hx Family Cancer: Yes (Leukemia) Medications and Allergies Atorvastatin [Lipitor] 20 mg PO HS 12/02/15 [History] Rivaroxaban [Xarelto] 20 mg PO DAILY 12/02/15 [History] Albuterol Sulfate [Proair Hfa] 2 puff IH Q4H PRN 11/09/17 [History] Cholecalciferol (Vitamin D3) [Vitamin D3] 2,000 unit PO DAILY 11/09/17 [History] Metoprolol Succinate [Toprol Xl] 25 mg PO DAILY 11/09/17 [History] Tiotropium [Spiriva] 18 mcg IH 0700 11/09/17 [History] Ciclopirox Olamine [Ciclopirox] 1 appl TP BID PRN 11/24/17 [History] Dexamethasone [Decadron] 4 mg PO QAM 11/24/17 [History] Furosemide [Lasix] 20 mg PO DAILY PRN 11/24/17 [History] Triamcinolone Acet 0.1% CRM [Kenalog] 1 appl TP BID PRN 11/24/17 [History] 3 Allergy/AdvReac Type Severity Reaction Status Date / Time codeine AdvReac Confusion Verified 08/16/16 12:48 brown cloth tape Allergy Rash Uncoded 11/09/17 13:00 All Systems: The remainder of the systems were reviewed and are negative Physical Examination Vital Signs: Vital Signs, Last 4 Hours Temp Pulse Resp BP Pulse Ox 11/26/17 10:00 69 18 141/81 92 11/26/17 09:48 76 18 178/91 93 11/26/17 08:15 18 91 11/26/17 08:00 70 18 163/100 91 11/26/17 07:44 98.4 F Results - Laboratory Findings CBC and BMP: 11/25/17 09:32 11/25/17 08:28 PT/INR, D-dimer PT 24.8 Seconds (9.4-12.1) H 11/24/17 19:42 Abnormal lab findings: Abnormal lab results PT 24.8 Seconds (9.4-12.1) H 11/24/17 19:42 APTT 37.2 Seconds (26.0-36.0) H 11/24/17 19:42 Carbon Dioxide 30 mEq/L (23-29) H 11/25/17 08:28 Glucose 126 mg/dL (70-105) H 11/25/17 08:28 POC Glucose 104 (58-89) H 11/25/17 14:28 - Clinical Findings Intake & Output: Intake & Output 11/25/17 11/26/17 11/26/17 23:59 07:59 15:59 Intake Total 240 / 240 400 / 400 Output Total 250 / 250 200 / 200 Balance -10 / -10 200 / 200 Consult Discharge Plan - Plan Instructions: Pacemaker (DC) Additional Instructions: Hold Xarelto for 1 week following PPM; resume on 12/02/17 ACTIVITY: Moderate activity for the next 7 days. No lifting more than 5 pounds ( gallon of milk) for 4-6 weeks. Avoid lifting your arm on the same side as the device for 4 weeks. BATHING /SHOWERING: Do not remove the large bandage over the site for 2 days. Do not allow the device to get wet for 7-10 days. You may bathe/shower, but do not use soap and water on the site. When bathing, keep the site dry by covering with Saran wrap or a towel. WOUND CARE: The white steri-strips will start to peel away and come off after 14 days, or your doctor will remove them after [address] anything into or on top of the incision. Do not use cotton swabs. Do not use any antibiotic ointment or Vitamin E on the site. REMINDERS: You may use electrical devices, such as, microwaves, hair dryers, electric razors, electric blankets, etc. as long as they are in good condition and kept 6 -8 inches away from the device. It is recommended to use cell phones on the opposite side of your device. Notify security personnel at the airport that you have a device before you go through airport security screening. When at places with security monitors, such as a grocery store, do not linger near these monitors. It is fine to walk past them in a normal manner. Refer to your owners manual for more specific directions. CARRY YOUR PACEMAKER/ICD CARD WITH YOU AT ALL TIMES Return to work as instructed per physician Resume driving as instructed per physician Keep all scheduled follow up appointments Resume medications as instructed Contact [facility] ( ) if: You develop excessive bleeding from insertion or wound site not controlled by applying pressure You develop a fever greater than 101 degrees Fahrenheit Your incision becomes reddened at or around the site Your incision develops yellowish or greenish drainage or development of white pimple-like bumps You experience excessive pain You develop swelling in your ankles You experience muscle switching You develop excessive hiccupping If you experience chest pain, shortness of breath, dizziness, or extreme tiredness, stop the activity and rest. Please notify [facility] office if you experience any of these symptoms and they are not relieved by rest please call 911!. Referrals: Yifan Huizar MD [Partnered Physician] - 12/02/17 3:00 pm Robert Martinez MD [Primary Care Provider] - <Bernardino Alexis M - Last Filed: 11/26/17 16:18> Date of Encounter: 11/26/17 All Systems: The remainder of the systems were reviewed and are negative Physical Examination Vital Signs: Vital Signs, Last 4 Hours Temp Pulse Resp BP Pulse Ox 11/26/17 15:50 97.8 F 11/26/17 15:00 71 18 138/72 93 11/26/17 14:00 74 18 128/74 92 11/26/17 13:00 79 18 163/103 93 Results - Laboratory Findings CBC and BMP: 11/25/17 09:32 11/25/17 08:28 PT/INR, D-dimer PT 24.8 Seconds (9.4-12.1) H 11/24/17 19:42 Abnormal lab findings: Abnormal lab results PT 24.8 Seconds (9.4-12.1) H 11/24/17 19:42 APTT 37.2 Seconds (26.0-36.0) H 11/24/17 19:42 Carbon Dioxide 30 mEq/L (23-29) H 11/25/17 08:28 Glucose 126 mg/dL (70-105) H 11/25/17 08:28 POC Glucose 104 (58-89) H 11/25/17 14:28 B-Natriuretic Peptide 301 pg/mL (Less than 100) H 11/26/17 11:00 - Clinical Findings Intake & Output: Intake & Output 11/26/17 11/26/17 11/26/17 07:59 15:59 23:59 Intake Total 400 / 400 240 / 240 Output Total 200 / 200 1500 / 1500 Balance 200 / 200 -1260 / -1260 - Attending Attestation I examined this patient and my medical decision-making was reviewed with the Resident Physician. I agree with the documented findings, disposition and treatment plan as described except to the extent set forth below. Patient seen and examined. Labs, radiology, chart personally reviewed. 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 I have reviewed chest x- ray personally and due to his history there is a possibility of aspiration pneumonia, however overall clinically he is doing good and no evidence of fevers. The short-term oral antibiotics and be reasonable. Cardiovascular: stable GI: Nutrition per dietary and GI prophylaxis per routine Heme: DVT prophylaxis per routine Renal; urine out put and renal funtion reviewed Endorcine: blood glucose is monitored Lines: all lines checked and no evidence of infections Skin: skin care to prevent pressure ulcers per nursing routine care Thank you very much for consultation
[2017-11-26] MEDS: Budesonide/Formoterol 160/4.5 1 PUFF INH IH SCH ×2 (13:50→19:26)
--- NOTE | 2017-11-26 20:24 | Electrocardiograph Report ---
[place] [address] Test Date: 2017-11-24 Pat Name: Dl Kenyon Department: 102 Room: [facility] Gender: M Ticker Wirer: Shellie : 1935 Requested By: Parminder Hagan Order Number: [id number] Reading MD: Olvin Crump Measurements Intervals [place] Rate: 116 P: 243 ND: 238 QRS: -18 QRSD: 130 T: 207 QT: 386 QTc: 455 Interpretive Statements ATRIAL FIBRILLATION WITH ABERRANT CONDUCTION RIGHT BUNDLE BRANCH BLOCK PATTERN DIFFUSE NON SPECIFIC ST CHANGES Electronically Signed On 11-26-2017 20:23:04 EST by Olvin Crump
--- NOTE | 2017-11-26 20:25 | Electrocardiograph Report ---
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
--- NOTE | 2017-11-26 20:38 | Electrocardiograph Report ---
[place] [address] Test Date: 2017-11-24 Pat Name: Dl Kenyon Department: 104 Room: [facility] Gender: M Yarn Weigher: OLMAN : 1935 Requested By: Yifan David Order Number: [id number] Reading MD: Olvin Crump Measurements Intervals [place] Rate: 82 P: 119 [place]: 181 QRS: -83 QRSD: 191 T: 75 QT: 550 QTc: 589 Interpretive Statements ELECTRONIC VENTRICULAR PACEMAKER ABNORMAL RHYTHM ECG Electronically Signed On 11-26-2017 20:36:22 EST by Olvin Crump
[2017-11-27 03:42] LABS: Hematocrit 40.7 % (37.5-50.1); Hemoglobin 13.7 g/dL (12.9-16.9); Mean Corpuscular HGB Conc 33.7 g/dL (31.6-35.5); Platelet Count 154 K/mcL (140-400); Red Blood Count 4.73 M/mcL (4.19-5.50); Red Cell Distribution Width 13.9 % (11.5-14.5)
[2017-11-27 03:57] LABS: BUN/Creatinine Ratio 24 (6-26); Blood Urea Nitrogen 24 mg/dL (8-23); Calcium 8.8 mg/dL (8.6-10.3); Carbon Dioxide 29 mEq/L (23-29); Chloride 103 mEq/L (98-107); Glucose 128 mg/dL (70-105); Osmolality,Calculated 292 (280-300); Potassium 3.6 mEq/L (3.5-5.1); Sodium 138 mEq/L (136-145); eGFR For Non-African Americans > 60 (> 60)
--- NOTE | 2017-11-27 07:48 | Pulmonology Progress Note ---
<Bernardino Alexis - Last Filed: 11/27/17 10:11> Date of Encounter: 11/27/17 Objective PUL Vital signs: Last Vital Signs Temp 97.1 F L 11/27/17 07:39 Pulse 70 11/27/17 09:00 Resp 18 11/27/17 09:02 BP 145/70 11/27/17 09:00 Pulse Ox 93 11/27/17 09:02 Results - Laboratory Findings CBC and BMP: 11/27/17 03:29 11/27/17 03:29 PT/INR, D-dimer PT 24.8 Seconds (9.4-12.1) H 11/24/17 19:42 Abnormal lab findings: Abnormal lab results PT 24.8 Seconds (9.4-12.1) H 11/24/17 19:42 APTT 37.2 Seconds (26.0-36.0) H 11/24/17 19:42 BUN 24 mg/dL (8-23) H 11/27/17 03:29 Glucose 128 mg/dL (70-105) H 11/27/17 03:29 POC Glucose 104 (58-89) H 11/25/17 14:28 B-Natriuretic Peptide 301 pg/mL (Less than 100) H 11/26/17 11:00 - Clinical Findings Intake & Output: Intake & Output 11/26/17 11/27/17 11/27/17 23:59 07:59 15:59 Intake Total 300 / 300 0 / 0 360 / 360 Output Total 1625 / 1625 250 / 250 Balance -1325 / -1325 -250 / -250 360 / 360 Weight 101.8 kg Consult Discharge Plan - Plan Instructions: Pacemaker (DC) Additional Instructions: Hold Xarelto for 1 week following PPM; resume on 12/02/17 ACTIVITY: Moderate activity for the next 7 days. No lifting more than 5 pounds ( gallon of milk) for 4-6 weeks. Avoid lifting your arm on the same side as the device for 4 weeks. BATHING /SHOWERING: Do not remove the large bandage over the site for 2 days. Do not allow the device to get wet for 7-10 days. You may bathe/shower, but do not use soap and water on the site. When bathing, keep the site dry by covering with Saran wrap or a towel. WOUND CARE: The white steri-strips will start to peel away and come off after 14 days, or your doctor will remove them after [address] anything into or on top of the incision. Do not use cotton swabs. Do not use any antibiotic ointment or Vitamin E on the site. REMINDERS: You may use electrical devices, such as, microwaves, hair dryers, electric razors, electric blankets, etc. as long as they are in good condition and kept 6 -8 inches away from the device. It is recommended to use cell phones on the opposite side of your device. Notify security personnel at the airport that you have a device before you go through airport security screening. When at places with security monitors, such as a grocery store, do not linger near these monitors. It is fine to walk past them in a normal manner. Refer to your owners manual for more specific directions. CARRY YOUR PACEMAKER/ICD CARD WITH YOU AT ALL TIMES Return to work as instructed per physician Resume driving as instructed per physician Keep all scheduled follow up appointments Resume medications as instructed Contact [facility] ( ) if: You develop excessive bleeding from insertion or wound site not controlled by applying pressure You develop a fever greater than 101 degrees Fahrenheit Your incision becomes reddened at or around the site Your incision develops yellowish or greenish drainage or development of white pimple-like bumps You experience excessive pain You develop swelling in your ankles You experience muscle switching You develop excessive hiccupping If you experience chest pain, shortness of breath, dizziness, or extreme tiredness, stop the activity and rest. Please notify [facility] office if you experience any of these symptoms and they are not relieved by rest please call 911!. Referrals: Yifan Huizar MD [Partnered Physician] - 12/02/17 3:00 pm Robert Martinez MD [Primary Care Provider] - - Attending Attestation I examined this patient and my medical decision-making was reviewed with the Resident Physician. I agree with the documented findings, disposition and treatment plan as described except to the extent set forth below. Patient seen and examined. Labs, radiology, chart personally reviewed. 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 GI: Nutrition per dietary and GI prophylaxis per routine Heme: DVT prophylaxis per routine ID: Continue antibiotics and plan to de-escalation <Alvarado Cox - Last Filed: 11/27/17 12:07> Date of Encounter: 11/27/17 Time of Encounter: 08:30 Assessment and Plan (1) Aspiration pneumonia Current Visit: Yes Status: Suspected Suspected aspiration pneumonia with atelectasis in setting of syncope/collapse due to severe bradycardia (s/p PPM 11/25) Cultures ordered/pending. Continue Duonebs, symbicort, incentive spirometry. Day 2 of Augmentin 875mg TID x5days. Light diuresis for vascular congestion. Transfer orders in for any telemetry floor, pending transfer. Qualifiers: Aspiration pneumonia type: unspecified Laterality: right Lung location: lower lobe of lung Qualified Code(s): J69.0 - Pneumonitis due to inhalation of food and vomit (2) Asystole Current Visit: Yes Status: Acute Interval History: Pt reported multiple syncopal episodes, onset Fall 2016. Patient presented to ED after syncopal episode 11/25 at 6:30pm. Unwitnessed, patient reports he was urinating standing, and woke up on the ground. ED heart rate in the low 30s interspersed with periods of asystole on monitor. Given epinephrine for pressure support. Emergent transvenous pacer placed by Dr. rCump in ED pacing at 60. S/p PPM ( [employer] Dual Chamber) 11/26. Plan: Device interrogation to check for pacing in the 40s for short duration around 1800 3 planned with Cardiology. (3) Syncope and collapse Current Visit: Yes Status: Acute Per assessment in (2). (4) COPD (chronic obstructive pulmonary disease) Current Visit: Yes Status: Chronic Former smoker quit 1972. A/P per (1). Qualifiers: COPD type: unspecified COPD Qualified Code(s): J44.9 - Chronic obstructive pulmonary disease, unspecified (5) A-fib Current Visit: Yes Status: Chronic Reported hx of PAF, has been on Toprol XL 25 mg daily and Xarelto 20 mg daily. Betablocker resumed. Continuing to hold Xarelto x1 week following procedure. Qualifiers: Atrial fibrillation type: chronic Qualified Code(s): I48.2 - Chronic atrial fibrillation (6) DVT prophylaxis Current Visit: Yes Status: Acute Patient is ambulatory. Subjective Principal diagnosis: Afib with slow ventricular response Interval history: Patient has no chest pain, shortness of breath, or complaints. Alert and conversant. Interrogation of PPM planned for today due to short episode of pacing at 40 confirmed by pulse check yesterday around 1800. Objective PUL Vital signs: Last Vital Signs Temp 97.1 F L 11/27/17 07:39 Pulse 70 11/27/17 07:00 Resp 16 11/27/17 07:00 BP 157/85 11/27/17 07:00 Pulse Ox 95 11/27/17 07:00 General appearance: no acute distress Eyes: nonicteric ENT: oropharynx moist Neck: supple Auscultation: bilateral: diminished breath sounds (bibasilar) Cardiovascular: regular rate and rhythm (without rub, gallop, or heave) Gastrointestinal: normoactive bowel sounds, soft, non-tender Extremities: no cyanosis Musculoskeletal: no deformities non-focal exam affect normal Results - Laboratory Findings CBC and BMP: 11/27/17 03:29 11/27/17 03:29 PT/INR, D-dimer PT 24.8 Seconds (9.4-12.1) H 11/24/17 19:42 Abnormal lab findings: Abnormal lab results PT 24.8 Seconds (9.4-12.1) H 11/24/17 19:42 APTT 37.2 Seconds (26.0-36.0) H 11/24/17 19:42 BUN 24 mg/dL (8-23) H 11/27/17 03:29 Glucose 128 mg/dL (70-105) H 11/27/17 03:29 POC Glucose 104 (58-89) H 11/25/17 14:28 B-Natriuretic Peptide 301 pg/mL (Less than 100) H 11/26/17 11:00 - Clinical Findings Intake & Output: Intake & Output 11/26/17 11/26/17 11/27/17 15:59 23:59 07:59 Intake Total 240 / 240 300 / 300 0 / 0 Output Total 1500 / 1500 1625 / 1625 250 / 250 Balance -1260 / -1260 -1325 / -1325 -250 / -250 Weight 101.8 kg
[2017-11-27] MEDS: Metoprolol XL (24 HR) Succ 25 MG TAB.ER.24H PO SCH (08:11)
[2017-11-27] MEDS ORDERED: Furosemide 40 MG/4 ML VIAL IVP SCH (09:00)
[2017-11-27] MEDS: Tiotropium 18 MCG inhalation IH SCH (09:02)
[2017-11-27] MEDS: Budesonide/Formoterol 160/4.5 1 PUFF INH IH SCH ×2 (09:02→20:35)
--- NOTE | 2017-11-27 11:25 | Event Note ---
Date of Encounter: 11/27/17 Time of Encounter: 11:00 - Cardiology Event Note Reviewed strips with Dr. Crump. Patient s/p dual chamber PPM. Concern yesterday evening at 18:50 for HR 40's. Reviewed telemetry strips, appears to be atrial paced at 40. Bedside RN reports pulse was also in 40's. CXR obtained, no significant changes. Recommend device check, will contact [employer] [facility] [place] for device interrogation. Impressions Chest X-Ray 11/26/17 18:22 IMPRESSION: 1. Left chest wall pacemaker leads project in appropriate position. 2. Increased right pleural effusion with increased right basilar opacity. Increased left pleural effusion. Findings could represent worsening pulmonary edema. Recommend correlation with volume status and radiographic follow-up to complete resolution. D/ / 11/26/2017 19:00:38 Satinder Thompson MD / [place] Interpreting Provider: Satinder Thompson MD
[2017-11-27] MEDS ORDERED: Naloxone 0.4 MG/ML INJ IVP PRN (12:07)
[2017-11-27] MEDS ORDERED: Ipratropium/Albuterol Neb 3 ML IH PRN (12:07)
[2017-11-28] MEDS ORDERED: Tiotropium 18 MCG inhalation IH SCH (07:00)
[2017-11-28] MEDS: Budesonide/Formoterol 160/4.5 1 PUFF INH IH SCH (07:24)
[2017-11-28 08:49] LABS: Basophils # 0.1 K/mcL (0.0-0.2); Basophils % 0.6 %; Eosinophils # 0.5 K/mcL (0.0-0.6); Eosinophils % 5.3 %; Hematocrit 46.6 % (37.5-50.1); Immature Granulocytes % 0.3 % (0-4); Mean Corpuscular HGB Conc 33.5 g/dL (31.6-35.5); Mean Corpuscular Hemoglobin 28.7 pg (28.0-33.3); Mean Corpuscular Volume 85.7 fL (83.0-100.0); Monocytes # 0.6 K/mcL (0.0-1.3); Monocytes % 5.7 %; Neutrophils # 5.6 K/mcL (1.6-8.9); Platelet Count 210 K/mcL (140-400); Red Blood Count 5.44 M/mcL (4.19-5.50); Segmented Neutrophils % 57.1 %
[2017-11-28 08:59] LABS: Hemoglobin 15.6 g/dL (12.9-16.9)
[2017-11-28] MEDS ORDERED: Metoprolol XL (24 HR) Succ 25 MG TAB.ER.24H PO SCH (09:00)
[2017-11-28] MEDS ORDERED: Furosemide 40 MG/4 ML VIAL IVP SCH (09:00)
[2017-11-28 09:09] LABS: BUN/Creatinine Ratio 20 (6-26); Blood Urea Nitrogen 19 mg/dL (8-23); Calcium 9.2 mg/dL (8.6-10.3); Carbon Dioxide 27 mEq/L (23-29); Chloride 102 mEq/L (98-107); Glucose 185 mg/dL (70-105); Osmolality,Calculated 289 (280-300); Potassium 3.7 mEq/L (3.5-5.1); Sodium 136 mEq/L (136-145); eGFR For Non-African Americans > 60 (> 60)
--- NOTE | 2017-11-28 09:42 | Event Note ---
Date of Encounter: 11/28/17 Time of Encounter: 09:00 - Cardiology Event Note Device interrogation completed 11/27/2017 PM. Dual chamber PPM is functioning normally, no events recorded. No episodes of bradycardia noted per device check. All lead measurements normal. No changes in lead position on CXR after reported episode of bradycardia. Likely artifact on telemetry. No further cardiac testing recommended. Follow-up scheduled. Cardiology will sign-off.
[2017-11-28 10:56] VITALS: BP 122/74
--- NOTE | 2017-11-28 16:00 | Discharge Summary ---
- NOTES TO OUTPATIENT PROVIDER Notes to Outpatient Provider: none Orders not resulted at time of discharge: Pending orders 11/25/17 12:42 CL Insert Permanent Pacemaker [CL] Routine 11/26/17 12:10 Culture,Sputum with Gram Stain [RM] Stat 11/26/17 12:31 Culture,Blood [BC] Stat Culture,Blood,Additional [BC] Stat Date of Encounter: 11/28/17 Time of Encounter: 11:00 - Discharge Diagnosis (1) Asystole Priority: Primary Status: Acute (2) Syncope and collapse Priority: Primary Status: Acute (3) Aspiration pneumonia Priority: Secondary Status: Suspected Qualifiers: Aspiration pneumonia type: unspecified Laterality: right Lung location: lower lobe of lung Qualified Code(s): J69.0 - Pneumonitis due to inhalation of food and vomit Hospital course: Patient is an 81-year-old male past medical history significant for COPD, hyperlipidemia, atrial fibrillation on xarelto who presented to [facility] on 11/24/17 after syncopal episode. He stated that he was standing up urinating when all of a sudden he woke up on the ground. He had hit his head on the bathroom door. He does not recall the fall or any prior symptoms, his then called EMS. On EMS arrival the patient was starting to feel normal again so he refused to go to the hospital. He reported that he has been having these symptoms for the past year where he "blacks out" and becomes diaphoretic, lightheaded, dizzy, sensation of warmth in his chest but she has never fallen. He was at [facility] 2 weeks ago for similar symptoms where they found he was bradycardiac and they monitored him for a while after which his heart rate improved and he was sent home. The patients hospital stay electrophysiology was consulted for recommendations for an implant of [employer] dual chamber PPM which was done on 11/26/17. Pacemaker was interrogated on 11/27/17 and found to be functioning normally and with no episodes of bradycardia. Patient will follow-up with cardiology as outpatient. The patients hospital stay he was also being treated for suspected aspiration pneumonia and will continue a 2 day course of Augmentin as an outpatient. - Time Spent with Patient Total time spent providing and/or coordinating discharge services: Less than 30 minutes - Discharge Medications Prescriptions: Amoxicillin/Clavulanate [Augmentin] 345 mg PO TID 2 Days #6 tablet Home Medications: Atorvastatin [Lipitor] 20 mg PO HS 12/02/15 [History] Rivaroxaban [Xarelto] 20 mg PO DAILY 12/02/15 [History] Albuterol Sulfate [Proair Hfa] 2 puff IH Q4H PRN 11/09/17 [History] Cholecalciferol (Vitamin D3) [Vitamin D3] 2,000 unit PO DAILY 11/09/17 [History] Metoprolol Succinate [Toprol Xl] 25 mg PO DAILY 11/09/17 [History] Tiotropium [Spiriva] 18 mcg IH 0700 11/09/17 [History] Ciclopirox Olamine [Ciclopirox] 1 appl TP BID PRN 11/24/17 [History] Dexamethasone [Decadron] 4 mg PO QAM 11/24/17 [History] Furosemide [Lasix] 20 mg PO DAILY PRN 11/24/17 [History] Triamcinolone Acet 0.1% CRM [Kenalog] 1 appl TP BID PRN 11/24/17 [History] Amoxicillin/Clavulanate [Augmentin] 875 mg PO TID 2 Days #6 tablet 11/28/17 [Rx] Allergies/Adverse Reactions: 3 Allergy/AdvReac Type Severity Reaction Status Date / Time codeine AdvReac Confusion Verified 08/16/16 12:48 brown cloth tape Allergy Rash Uncoded 11/09/17 13:00 Date of admission: 11/24/17 22:17 Primary care physician: Robert Martinez MD Consults: 11/25/17 13:47 Consult to Electrophysiology (EP) [CONS] Routine Consulting Provider: Electrophysiology Terri Reason for Consult: bradycardia Call Completed: Yes 11/26/17 11:09 Consult to Pulmonology [CONS] Routine Consulting Provider: [facility] Reason for Consult: abn chest x ray and productive cough Time Notified: 11:10 Call Completed: Yes - Constitutional Vitals: Temp Pulse Resp BP Pulse Ox 97.3 F L 70 18 122/74 94 11/28/17 10:56 11/28/17 10:56 11/28/17 15:25 11/28/17 10:56 11/28/17 15:25 General appearance: Present: A&O X 3, pleasant, no acute distress, answers questions appropriately - Respiratory Respiratory exam: Present: CTAB. Absent: accessory muscle use, rales, rhonchi, wheezes - Cardiovascular Cardiovascular exam: Present: RRR, +S1, +S2. Absent: diastolic murmur, gallop, rubs, systolic murmur - Patient Status Disposition: Home, Self-Care Condition: Good - Discharge Instructions Instructions: Pacemaker (DC) Follow Up With: Yifan Huizar MD [Partnered Physician] - 12/02/17 3:00 pm Robert Martinez MD [Primary Care Provider] - Forms: ED Satisfaction Letter Additional Instructions: FOLLOW UP WITH YOUR PRIMARY CARE PROVIDER NEXT WEEK TO HAVE YOUR DAMIEN REMOVED. Hold Xarelto for 1 week following PPM; resume on 12/02/17 ACTIVITY: Moderate activity for the next 7 days. No lifting more than 5 pounds ( gallon of milk) for 4-6 weeks. Avoid lifting your arm on the same side as the device for 4 weeks. BATHING /SHOWERING: Do not remove the large bandage over the site for 2 days. Do not allow the device to get wet for 7-10 days. You may bathe/shower, but do not use soap and water on the site. When bathing, keep the site dry by covering with Saran wrap or a towel. WOUND CARE: The white steri-strips will start to peel away and come off after 14 days, or your doctor will remove them after [address] into or on top of the incision. Do not use cotton swabs. Do not use any antibiotic ointment or Vitamin E on the site. REMINDERS: You may use electrical devices, such as, microwaves, hair dryers, electric razors, electric blankets, etc. as long as they are in good condition and kept 6 -8 inches away from the device. It is recommended to use cell phones on the opposite side of your device. Notify security personnel at the airport that you have a device before you go through airport security screening. When at places with security monitors, such as a grocery store, do not linger near these monitors. It is fine to walk past them in a normal manner. Refer to your owners manual for more specific directions. CARRY YOUR PACEMAKER/ICD CARD WITH YOU AT ALL TIMES Return to work as instructed per physician Resume driving as instructed per physician Keep all scheduled follow up appointments Resume medications as instructed Contact [facility] ( ) if: You develop excessive bleeding from insertion or wound site not controlled by applying pressure You develop a fever greater than 101 degrees Fahrenheit Your incision becomes reddened at or around the site Your incision develops yellowish or greenish drainage or development of white pimple-like bumps You experience excessive pain You develop swelling in your ankles You experience muscle switching You develop excessive hiccupping If you experience chest pain, shortness of breath, dizziness, or extreme tiredness, stop the activity and rest. Please notify [facility] office if you experience any of these symptoms and they are not relieved by rest please call 911!.
== END 2017-11-28 16:35 | disposition home or self-care (01) | DRG 242 ==
LOC: EMEROO 19:19 → SUATTDRO 22:17 → ICNU 22:17 → 2ANU 11-28 01:40
PROVIDERS: ADMIT Internal Medicine; ATTEND Hospitalist

== ENCOUNTER 2018-03-10 11:03 | Inpatient (IN) ==
--- NOTE | 2018-03-10 11:43 | Emergency Department Note ---
Disposition Clinical Impression: Cholecystitis Disposition: Admitted As Inpatient Condition: Good Time of Disposition: 21:09 General Adult HPI - General Chief complaint: ED Weakness Stated complaint: fever, abd pain Time Seen by Provider: 03/10/18 11:41 Source: patient Limitations: no limitations Nursing Notes Reviewed: Yes Vital Signs Reviewed: Yes - History of Present Illness HPI Narrative: 17 day history of intermittent right upper quadrant pain after he eats. No associated vomiting. Does have associated chills. Has not tried any medication to make this better. Does get relief if he does not eat. Also reporting a 20 pound weight loss in the past week. Pain Scale: 0 - Related Data Home Medications Medication Instructions Recorded Confirmed Atorvastatin [Lipitor] 20 mg PO HS 12/02/15 03/10/18 Albuterol Sulfate [Proair Hfa] 2 puff IH Q4H PRN 11/09/17 03/10/18 Metoprolol Succinate [Toprol Xl] 25 mg PO DAILY 11/09/17 03/10/18 Ciclopirox Olamine [Ciclopirox] 1 appl TP BID PRN 11/24/17 03/10/18 Furosemide [Lasix] 20 mg PO DAILY PRN 11/24/17 03/10/18 Triamcinolone Acet 0.1% CRM 1 appl TP BID PRN 11/24/17 03/10/18 [Kenalog] Rivaroxaban [Xarelto] 20 mg PO DAILY 03/10/18 03/10/18 Allergies Allergy/AdvReac Type Severity Reaction Status Date / Time codeine AdvReac Confusion Verified 03/10/18 18:04 brown cloth tape Allergy Rash Uncoded 03/10/18 18:04 All systems ED: reviewed and negative except as stated. Constitutional: Reports: chills, weakness. Denies: fever ENT ED: Denies: congestion Cardiovascular: Denies: chest pain, palpitations, syncope Respiratory: Denies: cough, dyspnea Gastrointestinal: Reports: abdominal pain (Intermittent not at this time.), nausea, other (Patient reports he occasionally will have a dark stool after he takes charcoal pills.). Denies: vomiting, diarrhea, hematemesis, melena, hematochezia Genitourinary: Reports: other (Sits it is a dark color occasionally however the same day it was a light not to become is clear.). Denies: urgency, dysuria Musculoskeletal: Denies: back pain, neck pain Integumentary: Denies: rash Neurological: Reports: weakness Past Medical History - Past Medical History Attestation: Yes The following information was validated with the patient. Source: patient Medical history: Reports: atrial fibrillation, COPD, GERD, hyperlipidemia, other Surgical history: Reports: herniorrhaphy, orthopedic, other Psychiatric history: Reports: no psych history - Social History Smoking Status: Former smoker Smokeless Tobacco Status: No Alcohol use: Reports: none Drug use: Reports: none Physical Exam - General Limitations: no limitations General appearance: alert, in no apparent distress - Head Head exam: atraumatic, normocephalic, normal inspection - Eye Eye exam: Present: normal appearance, PERRL, EOMI - ENT ENT exam: normal exam, normal oropharynx, mucous membranes moist - Neck Neck exam: Present: normal inspection, full ROM, trachea midline - Chest Chest inspection: Present: normal inspection, symmetric chest wall rise - Respiratory Respiratory exam: Present: normal lung sounds bilaterally. Absent: respiratory distress, accessory muscle use - Cardiovascular Cardiovascular exam: Present: regular rate, normal rhythm, normal heart sounds - Abdominal Exam Abdominal exam: Present: soft, Non-Tender, scar (Extensive scarring across abdomen). Absent: tenderness, distention, guarding, rebound, rigidity, organomegaly - Extremities Exam Extremities exam: Present: normal inspection, full ROM, normal capillary refill. Absent: tenderness, pedal edema - Neurological Exam Neurological exam: Present: alert, oriented X3 - Psychiatric Psychiatric exam: Present: normal affect, normal mood - Skin Skin exam: Present: warm, dry, intact, normal color Course Course Narrative: Male patient with a history of extensive abdominal surgery inclusive of a partial colectomy reporting to the emergency department complaining of right upper quadrant abdominal pain that is been intermittent for around 17 days. He states that the pain is always worse after he eats. He states he does not have the pain at this time. He is also reporting generalized weakness and a 20 pound weight loss in the past week. He also reports episodic dark urine. He denies any dysuria or trouble urinating. He reports the pain in his abdomen is generally in his right upper quadrant and sharp in nature. He also reports episodic chilling with this as well. He has not taken his temperature to tell if he has a fever. States that last night he had got to his car and turned the heat up to 90 degrees to be able to get warm. He reports no vomiting to me. States he is occasionally nauseated. Patient states that he does not want to eat because he is afraid that he is going to have pain. States that he has eaten 1 saltine cracker in the past 24 hours. Patient does have extensive scarring to his abdomen. However his abdomen is soft and nontender to deep palpation. He states that he is not having abdominal pain at this time. His lung sounds are clear and heart tones are normal. He has no signs of edema to his extremities. He is well-appearing with a good color. Does not appear to be in distress at this time. We will get basic lab workup as well as a CT of patient's abdomen. Is agreeable with this. Of note he did just recently have several areas of "skin cancer" removed from his body. - Reevaluation(s) Reevaluation #1: Patient has cholecystitis. Liver enzymes are elevated. Has signs of this on his ultrasound. He does have a gallbladder. Is been reported in several reports of the report possibly no gallbladder however patient states this is never been removed. We will admit patient to the hospital and have Dr. Fraga consult as a surgical consult. We have placed him on antibiotic. He is agreeable to this. - Consultations Consultation #1: I spoke with Dr. Fraga. He suggested contact IR. Time: 14:26 Consultation #2: I spoke with Dr Hayward. He suggests to do a gallbladder US. Time: 14:31 Consultation #3: I spoke with Dr. Fraga. He states to admit to the hospitalist and he will be consult. Time: 17:53 Additional Consultation(s): 18:19 Dr Caal accepted Pt in stable condition. Vital Signs Temperature 97.6 F 03/10/18 11:05 Pulse Rate 91 03/10/18 11:05 Respiratory Rate 16 03/10/18 11:05 Blood Pressure 131/70 03/10/18 11:05 O2 Sat by Pulse Oximetry 98 03/10/18 11:05 Temperature 97.7 F 03/10/18 20:13 Pulse Rate 83 03/10/18 20:13 Respiratory Rate 16 03/10/18 20:13 Blood Pressure 143/79 03/10/18 20:13 O2 Sat by Pulse Oximetry 97 03/10/18 20:13 Oxygen Delivery Oxygen Delivery Room Air Medical Decision Making - Medical Records Medical records reviewed: Yes I reviewed the patient's medical records. - Lab Data Lab results reviewed: Yes I reviewed the patient's lab results. Result diagrams: 03/10/18 11:51 03/10/18 11:51 Lab Results 03/10/18 03/10/18 03/10/18 Range/Units 11:22 11:51 11:51 WBC 12.0 H (4.3-11.1) K/mcL RBC 4.71 (4.19-5.50) M/mcL Hgb 13.6 (12.9-16.9) g/dL Hct 40.8 (37.5-50.1) % MCV 86.6 (83.0-100.0) fL MCH 28.9 (28.0-33.3) pg MCHC 33.3 (31.6-35.5) g/dL RDW 13.8 (11.5-14.5) % Plt Count 237 (140-400) K/mcL MPV 9.6 (9.4-12.4) fL Immature Gran % 0.3 (0-4) % Seg Neutrophils % 81.8 % Lymphocytes % 15.0 % Monocytes % 2.3 % Eosinophils % 0.2 % Basophils % 0.4 % Neutrophils # 9.9 H (1.6-8.9) K/mcL Lymphocytes # 1.8 (0.6-4.6) K/mcL Monocytes # 0.3 (0.0-1.3) K/mcL Eosinophils # 0.0 (0.0-0.6) K/mcL Basophils # 0.1 (0.0-0.2) K/mcL Sodium 138 (136-145) mEq/L Potassium 4.0 (3.5-5.1) mEq/L Chloride 104 (98-107) mEq/L Carbon Dioxide 28 (23-29) mEq/L BUN 20 (8-23) mg/dL Creatinine 0.91 (0.70-1.30) mg/dL Est GFR ( Amer) > 60 (> 60) Est GFR (Non-Af Amer) > 60 (> 60) BUN/Creatinine Ratio 22 (6-26) Glucose 151 H (70-105) mg/dL POC Glucose (70-99) mg/dL Calculated Osmolality 292 (280-300) Lactic Acid (0.5-2.2) mmol/L Calcium 8.8 (8.6-10.3) mg/dL Total Bilirubin 2.8 H (0.3-1.0) mg/dL Direct Bilirubin 1.1 H (0.0-0.2) mg/dL Indirect Bilirubin 1.7 H (0.0-1.2) mg/dL AST 114 H (13-39) Units/L ALT 129 H (7-52) Units/L Alkaline Phosphatase 532 H (34-104) Units/L Serum Total Protein 6.1 L (6.4-8.9) g/dL Albumin 3.3 L (3.5-5.7) g/dL Globulin 2.8 (2.4-3.5) g/dL Albumin/Globulin Ratio 1.2 (1.1-2.2) Lipase 8 L (11-82) Units/L Urine Color [place] A (Yellow) Urine Clarity Clear (Clear) Urine pH 5.5 (5.0-8.0) pH Units Ur Specific [place] 1.021 (1.010-1.025) Urine Protein Negative (Neg-Trace) mg/dL Urine Glucose (UA) Normal (Normal) mg/dL Urine Ketones Negative (Negative) mg/dL Urine Blood Negative (Negative) Urine Nitrite Negative (Negative) Urine Bilirubin Small H (Negative) Urine Urobilinogen 4.0 H (Normal) mg/dL Ur Leukocyte Esterase Trace H (Negative) Urine Microscopic RBC 0-3 (0-3) per hpf Urine Microscopic WBC 3-5 H (0-3) per hpf Ur Squamous Epith Cells Many H (None-Few) per lpf Urine Bacteria None Seen (None-Few) per hpf Hyaline Casts Few (None-Few) per lpf WBC Casts Few H (None Seen) per lpf Urine Mucus Moderate H (Few) Ur Culture Indicated? NO. A (NO) 03/10/18 03/10/18 Range/Units 11:51 15:26 WBC (4.3-11.1) K/mcL RBC (4.19-5.50) M/mcL Hgb (12.9-16.9) g/dL Hct (37.5-50.1) % MCV (83.0-100.0) fL MCH (28.0-33.3) pg MCHC (31.6-35.5) g/dL RDW (11.5-14.5) % Plt Count (140-400) K/mcL MPV (9.4-12.4) fL Immature Gran % (0-4) % Seg Neutrophils % % Lymphocytes % % Monocytes % % Eosinophils % % Basophils % % Neutrophils # (1.6-8.9) K/mcL Lymphocytes # (0.6-4.6) K/mcL Monocytes # (0.0-1.3) K/mcL Eosinophils # (0.0-0.6) K/mcL Basophils # (0.0-0.2) K/mcL Sodium (136-145) mEq/L Potassium (3.5-5.1) mEq/L Chloride (98-107) mEq/L Carbon Dioxide (23-29) mEq/L BUN (8-23) mg/dL Creatinine (0.70-1.30) mg/dL Est GFR ( Amer) (> 60) Est GFR (Non-Af Amer) (> 60) BUN/Creatinine Ratio (6-26) Glucose (70-105) mg/dL POC Glucose 107 H (70-99) mg/dL Calculated Osmolality (280-300) Lactic Acid 1.3 (0.5-2.2) mmol/L Calcium (8.6-10.3) mg/dL Total Bilirubin (0.3-1.0) mg/dL Direct Bilirubin (0.0-0.2) mg/dL Indirect Bilirubin (0.0-1.2) mg/dL AST (13-39) Units/L ALT (7-52) Units/L Alkaline Phosphatase (34-104) Units/L Serum Total Protein (6.4-8.9) g/dL Albumin (3.5-5.7) g/dL Globulin (2.4-3.5) g/dL Albumin/Globulin Ratio (1.1-2.2) Lipase (11-82) Units/L Urine Color (Yellow) Urine Clarity (Clear) Urine pH (5.0-8.0) pH Units Ur Specific [place] (1.010-1.025) Urine Protein (Neg-Trace) mg/dL Urine Glucose (UA) (Normal) mg/dL Urine Ketones (Negative) mg/dL Urine Blood (Negative) Urine Nitrite (Negative) Urine Bilirubin (Negative) Urine Urobilinogen (Normal) mg/dL Ur Leukocyte Esterase (Negative) Urine Microscopic RBC (0-3) per hpf Urine Microscopic WBC (0-3) per hpf Ur Squamous Epith Cells (None-Few) per lpf Urine Bacteria (None-Few) per hpf Hyaline Casts (None-Few) per lpf WBC Casts (None Seen) per lpf Urine Mucus (Few) Ur Culture Indicated? (NO) - EKG Data EKG #1 EKG attestation: Yes I reviewed and interpreted this EKG. EKG results narrative: A. fib at a rate of 96. QRS duration is 158. QTC is 428. QTC is 482. No signs of acute ischemia. No significant change from previous EKG dated 2017. On previous EKG patient did have some ventricularly paced beats is or not present from what I can tell on this current EKG.
--- NOTE | 2018-03-10 11:57 | Emergency Department Note ---
Disposition Clinical Impression: Cholecystitis Disposition: Admitted As Inpatient Condition: Good General Adult HPI - General Chief complaint: ED Weakness Stated complaint: fever, abd pain Time Seen by Provider: 03/10/18 11:41 Source: patient Limitations: no limitations - History of Present Illness Pain Scale: 0 - Related Data Home Medications Medication Instructions Recorded Confirmed Atorvastatin [Lipitor] 20 mg PO HS 12/02/15 03/10/18 Albuterol Sulfate [Proair Hfa] 2 puff IH Q4H PRN 11/09/17 03/10/18 Metoprolol Succinate [Toprol Xl] 25 mg PO DAILY 11/09/17 03/10/18 Ciclopirox Olamine [Ciclopirox] 1 appl TP BID PRN 11/24/17 03/10/18 Furosemide [Lasix] 20 mg PO DAILY PRN 11/24/17 03/10/18 Triamcinolone Acet 0.1% CRM 1 appl TP BID PRN 11/24/17 03/10/18 [Kenalog] Rivaroxaban [Xarelto] 20 mg PO DAILY 03/10/18 03/10/18 Allergies Allergy/AdvReac Type Severity Reaction Status Date / Time codeine AdvReac Confusion Verified 03/10/18 18:04 brown cloth tape Allergy Rash Uncoded 03/10/18 18:04 Past Medical History - Past Medical History Medical history: Reports: atrial fibrillation, COPD, GERD, hyperlipidemia, other Surgical history: Reports: herniorrhaphy, orthopedic, other Psychiatric history: Reports: no psych history - Social History Smoking Status: Former smoker Smokeless Tobacco Status: No Alcohol use: Reports: none Drug use: Reports: none Physical Exam - General Limitations: no limitations Course Vital Signs Temperature 97.6 F 03/10/18 11:05 Pulse Rate 91 03/10/18 11:05 Respiratory Rate 16 03/10/18 11:05 Blood Pressure 131/70 03/10/18 11:05 O2 Sat by Pulse Oximetry 98 03/10/18 11:05 Temperature 97.9 F 03/11/18 05:42 Pulse Rate 79 03/11/18 05:42 Respiratory Rate 15 03/11/18 05:42 Blood Pressure 137/89 03/11/18 05:42 O2 Sat by Pulse Oximetry 97 03/11/18 05:42 Oxygen Delivery Oxygen Delivery Room Air Medical Decision Making - Lab Data Result diagrams: 03/11/18 04:41 03/11/18 04:41 Lab Results 03/10/18 03/10/18 03/10/18 Range/Units 11:22 11:51 11:51 WBC 12.0 H (4.3-11.1) K/mcL RBC 4.71 (4.19-5.50) M/mcL Hgb 13.6 (12.9-16.9) g/dL Hct 40.8 (37.5-50.1) % MCV 86.6 (83.0-100.0) fL MCH 28.9 (28.0-33.3) pg MCHC 33.3 (31.6-35.5) g/dL RDW 13.8 (11.5-14.5) % Plt Count 237 (140-400) K/mcL MPV 9.6 (9.4-12.4) fL Immature Gran % 0.3 (0-4) % Seg Neutrophils % 81.8 % Lymphocytes % 15.0 % Monocytes % 2.3 % Eosinophils % 0.2 % Basophils % 0.4 % Neutrophils # 9.9 H (1.6-8.9) K/mcL Lymphocytes # 1.8 (0.6-4.6) K/mcL Monocytes # 0.3 (0.0-1.3) K/mcL Eosinophils # 0.0 (0.0-0.6) K/mcL Basophils # 0.1 (0.0-0.2) K/mcL Sodium 138 (136-145) mEq/L Potassium 4.0 (3.5-5.1) mEq/L Chloride 104 (98-107) mEq/L Carbon Dioxide 28 (23-29) mEq/L BUN 20 (8-23) mg/dL Creatinine 0.91 (0.70-1.30) mg/dL Est GFR ( Amer) > 60 (> 60) Est GFR (Non-Af Amer) > 60 (> 60) BUN/Creatinine Ratio 22 (6-26) Glucose 151 H (70-105) mg/dL POC Glucose (70-99) mg/dL Calculated Osmolality 292 (280-300) Lactic Acid (0.5-2.2) mmol/L Calcium 8.8 (8.6-10.3) mg/dL Total Bilirubin 2.8 H (0.3-1.0) mg/dL Direct Bilirubin 1.1 H (0.0-0.2) mg/dL Indirect Bilirubin 1.7 H (0.0-1.2) mg/dL AST 114 H (13-39) Units/L ALT 129 H (7-52) Units/L Alkaline Phosphatase 532 H (34-104) Units/L Serum Total Protein 6.1 L (6.4-8.9) g/dL Albumin 3.3 L (3.5-5.7) g/dL Globulin 2.8 (2.4-3.5) g/dL Albumin/Globulin Ratio 1.2 (1.1-2.2) Lipase 8 L (11-82) Units/L Urine Color [place] A (Yellow) Urine Clarity Clear (Clear) Urine pH 5.5 (5.0-8.0) pH Units Ur Specific [place] 1.021 (1.010-1.025) Urine Protein Negative (Neg-Trace) mg/dL Urine Glucose (UA) Normal (Normal) mg/dL Urine Ketones Negative (Negative) mg/dL Urine Blood Negative (Negative) Urine Nitrite Negative (Negative) Urine Bilirubin Small H (Negative) Urine Urobilinogen 4.0 H (Normal) mg/dL Ur Leukocyte Esterase Trace H (Negative) Urine Microscopic RBC 0-3 (0-3) per hpf Urine Microscopic WBC 3-5 H (0-3) per hpf Ur Squamous Epith Cells Many H (None-Few) per lpf Urine Bacteria None Seen (None-Few) per hpf Hyaline Casts Few (None-Few) per lpf WBC Casts Few H (None Seen) per lpf Urine Mucus Moderate H (Few) Ur Culture Indicated? NO. A (NO) 03/10/18 03/10/18 Range/Units 11:51 15:26 WBC (4.3-11.1) K/mcL RBC (4.19-5.50) M/mcL Hgb (12.9-16.9) g/dL Hct (37.5-50.1) % MCV (83.0-100.0) fL MCH (28.0-33.3) pg MCHC (31.6-35.5) g/dL RDW (11.5-14.5) % Plt Count (140-400) K/mcL MPV (9.4-12.4) fL Immature Gran % (0-4) % Seg Neutrophils % % Lymphocytes % % Monocytes % % Eosinophils % % Basophils % % Neutrophils # (1.6-8.9) K/mcL Lymphocytes # (0.6-4.6) K/mcL Monocytes # (0.0-1.3) K/mcL Eosinophils # (0.0-0.6) K/mcL Basophils # (0.0-0.2) K/mcL Sodium (136-145) mEq/L Potassium (3.5-5.1) mEq/L Chloride (98-107) mEq/L Carbon Dioxide (23-29) mEq/L BUN (8-23) mg/dL Creatinine (0.70-1.30) mg/dL Est GFR ( Amer) (> 60) Est GFR (Non-Af Amer) (> 60) BUN/Creatinine Ratio (6-26) Glucose (70-105) mg/dL POC Glucose 107 H (70-99) mg/dL Calculated Osmolality (280-300) Lactic Acid 1.3 (0.5-2.2) mmol/L Calcium (8.6-10.3) mg/dL Total Bilirubin (0.3-1.0) mg/dL Direct Bilirubin (0.0-0.2) mg/dL Indirect Bilirubin (0.0-1.2) mg/dL AST (13-39) Units/L ALT (7-52) Units/L Alkaline Phosphatase (34-104) Units/L Serum Total Protein (6.4-8.9) g/dL Albumin (3.5-5.7) g/dL Globulin (2.4-3.5) g/dL Albumin/Globulin Ratio (1.1-2.2) Lipase (11-82) Units/L Urine Color (Yellow) Urine Clarity (Clear) Urine pH (5.0-8.0) pH Units Ur Specific [place] (1.010-1.025) Urine Protein (Neg-Trace) mg/dL Urine Glucose (UA) (Normal) mg/dL Urine Ketones (Negative) mg/dL Urine Blood (Negative) Urine Nitrite (Negative) Urine Bilirubin (Negative) Urine Urobilinogen (Normal) mg/dL Ur Leukocyte Esterase (Negative) Urine Microscopic RBC (0-3) per hpf Urine Microscopic WBC (0-3) per hpf Ur Squamous Epith Cells (None-Few) per lpf Urine Bacteria (None-Few) per hpf Hyaline Casts (None-Few) per lpf WBC Casts (None Seen) per lpf Urine Mucus (Few) Ur Culture Indicated? (NO) Attestation Statement - Attestation Attestation: I examined this patient and my medical decision-making was reviewed with the LOCK MASTER/PA/Advanced Practice Nurse/Resident Physician. I agree with the documented findings, disposition and treatment plan as described except to the extent set forth below. I did see the patient is spoke with him and examine him and he does have complaint of right upper quadrant pain intermittently after eating which happened 2 hours after eating for the last several weeks or longer however at this point he has no pain whatsoever even with deep palpation. Does have numerous well-healed surgical scars. History of multiple surgeries for ulcerations of the stomach and gallbladder that he has not had his gallbladder removed. Most the pain is right upper quadrant. He denies any fever but does have chills. 20 pounds weight loss in the last 3 or [address] scan pending 1156 I did review the EKG showing atrial fibrillation with a rate of 96 and does appear similar in appearance to previous EKG from October this year 1158
[2018-03-10 12:04] LABS: Basophils # 0.1 K/mcL (0.0-0.2); Basophils % 0.4 %; Eosinophils % 0.2 %; Hematocrit 40.8 % (37.5-50.1); Hemoglobin 13.6 g/dL (12.9-16.9); Immature Granulocytes % 0.3 % (0-4); Lymphocytes # 1.8 K/mcL (0.6-4.6); Mean Corpuscular HGB Conc 33.3 g/dL (31.6-35.5); Mean Corpuscular Hemoglobin 28.9 pg (28.0-33.3); Mean Corpuscular Volume 86.6 fL (83.0-100.0); Mean Platelet Volume 9.6 fL (9.4-12.4); Monocytes # 0.3 K/mcL (0.0-1.3); Monocytes % 2.3 %; Neutrophils # 9.9 K/mcL (1.6-8.9); Platelet Count 237 K/mcL (140-400); Red Blood Count 4.71 M/mcL (4.19-5.50); Red Cell Distribution Width 13.8 % (11.5-14.5); Segmented Neutrophils % 81.8 %
[2018-03-10 12:24] LABS: Alanine Aminotransferase 129 Units/L (7-52); Albumin 3.3 g/dL (3.5-5.7); Albumin/Globulin Ratio 1.2 (1.1-2.2); Alkaline Phosphatase 532 Units/L (34-104); Aspartate Amino Transferase 114 Units/L (13-39); BUN/Creatinine Ratio 22 (6-26); Bilirubin,Direct 1.1 mg/dL (0.0-0.2); Bilirubin,Indirect 1.7 mg/dL (0.0-1.2); Bilirubin,Total 2.8 mg/dL (0.3-1.0); Blood Urea Nitrogen 20 mg/dL (8-23); Calcium 8.8 mg/dL (8.6-10.3); Carbon Dioxide 28 mEq/L (23-29); Chloride 104 mEq/L (98-107); Globulin 2.8 g/dL (2.4-3.5); Glucose 151 mg/dL (70-105); Lipase 8 Units/L (11-82); Osmolality,Calculated 292 (280-300); Sodium 138 mEq/L (136-145); Total Protein 6.1 g/dL (6.4-8.9); eGFR For African Americans > 60 (> 60); eGFR For Non-African Americans > 60 (> 60)
[2018-03-10 12:59] LABS: Bilirubin,Urine Small (Negative); Blood,Urine Negative (Negative); Clarity,Urine Clear (Clear); Color,Urine Orange (Yellow); Glucose,Urine (UA) Normal (Normal); Ketones,Urine Negative (Negative); Leukocyte Esterase,Urine Trace (Negative); Nitrite,Urine Negative (Negative); PH,Urine 5.5 pH Units (5.0-8.0); Protein,Urine Negative (Neg-Trace); Specific Gravity,Urine 1.021 (1.010-1.025)
[2018-03-10 13:03] LABS: Bacteria,Urine None Seen per hpf (None-Few); Squamous Epithelial Cell,Urine Many per lpf (None-Few)
[2018-03-10 13:12] LABS: Hyaline Casts,Urine Few per lpf (None-Few)
[2018-03-10 13:13] LABS: White Blood Cell Casts,Urine Few per lpf (None Seen)
[2018-03-10 13:14] LABS: Mucus,Urine Moderate (Few); RBC,Urine 0-3 per hpf (0-3)
[2018-03-10] MEDS ORDERED: CEFOTAXIME IVPB ONE (17:36)
[2018-03-10] MEDS ORDERED: SODIUM CHLORIDE MINI 0.9% IVPB ONE (17:36)
[2018-03-10] MEDS ORDERED: cefoTAXime 2,000 MG in 0.9 % Sodium Chloride 100 ML IVPB ONE (19:00)
[2018-03-10] MEDS ORDERED: CICLOPIROX OLAMINE APPL TP PRN (19:36)
[2018-03-10] MEDS ORDERED: Naloxone 0.4 MG/ML INJ IVP PRN (19:36)
[2018-03-10] MEDS ORDERED: Triamcinolone Acet 0.1% CRM 15 GM TUBE TP PRN (19:36)
[2018-03-10] MEDS ORDERED: Ondansetron 4 MG/2 ML VIAL IVP PRN (19:39)
--- NOTE | 2018-03-10 19:41 | Internal Med History&Physical ---
Date of Encounter: 03/10/18 Time of Encounter: 19:39 Internal Medicine - H&P: HPI Chief complaint: subacute RUQ pain History of present illness: Mr. Kenyon is a 82 year old male who presents with subacute RUQ pain. Admitted for suspect cholecystitis He has a medical history of chronic A. fib, high cholesterol, hypertension. He reports only taking 3 medicines to include metoprolol, Lipitor, Zaroxolyn which she took yesterday. Patients present with initial onset of right upper quadrant pain since the of last month. Since then, he has been experiencing intermittent pain on and off in in the past few weeks, worse with food, progressive worsening with time. He reports that he has recently noticed that his urine has became dark. He developed fevers and chills since yesterday night. Some nausea but no emesis. No diarrhea. He has a history of abdominal surgery to include what was described to be gastrectomy reported as losing 90% of his stomach in 1970 where he related to stomach ulcer. 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 EKG personally reviewed with rate of 96, atrial fibrillation, right bundle branch block R #: [id number] US/US gall bladder IMPRESSION: 1. Lobular cystic structure in the right upper quadrant in the expected region of the gallbladder fossa. No sonographic Falk's sign. Findings are equivocal for cholecystitis which is not excluded given the presence of wall thickness and possible sludge. In setting of prior cholecystectomy, the cystic structure may also represent a fluid collection such as an abscess or biloma. CT/CT abd pelvis wo no iv no oral IMPRESSION: 1. 5 x 5 x 3 cm lobulated fluid collection seen in the gallbladder fossa. By history, the patient has had a previous cholecystectomy. Findings suggest the possibility of an abscess. 2. Previous partial gastrectomy. 3. Normal appearing appendix. 4. No obstructive uropathy. 5. Previous ventral hernia repair. 6. Hydrocele in the visualized portion of the right hemiscrotum. Past Med Surg Social Fam HX - Past Medical History Medical history: atrial fibrillation, COPD, GERD, hyperlipidemia, other Additional medical history: WELLS SYNDROME Psychiatric history: no psych history - Past Surgical History Surgical History: herniorrhaphy, orthopedic, other Additional surgical history: partial colectomy, ulcer removed from galbladder, nasal surgery, right shoulder scope, left knee scope, cataract surgery - Social History Smoking Status: Former smoker Smokeless Tobacco Status: No Alcohol use: none Drug use: none - Family History Mother Hx Family Cancer: Yes (Leukemia) Internal Medicine - H&P: Meds Atorvastatin [Lipitor] 20 mg PO HS 12/02/15 [History] Albuterol Sulfate [Proair Hfa] 2 puff IH Q4H PRN 11/09/17 [History] Metoprolol Succinate [Toprol Xl] 25 mg PO DAILY 11/09/17 [History] Ciclopirox Olamine [Ciclopirox] 1 appl TP BID PRN 11/24/17 [History] Furosemide [Lasix] 20 mg PO DAILY PRN 11/24/17 [History] Triamcinolone Acet 0.1% CRM [Kenalog] 1 appl TP BID PRN 11/24/17 [History] Rivaroxaban [Xarelto] 20 mg PO DAILY 03/10/18 [History] 3 Allergy/AdvReac Type Severity Reaction Status Date / Time codeine AdvReac Confusion Verified 03/10/18 18:04 brown cloth tape Allergy Rash Uncoded 03/10/18 18:04 All Systems PM: A 10-system review of systems was performed and is negative for pertinent findings except as documented above in the HPI. Review of systems: ROS 14 point review of systems reviewed as best as possible given presentation. Pertinent positive or negative as per HPI or otherwise reviewed as negative - Constitutional Vitals: Temp Pulse Resp BP Pulse Ox 97.6 F 87 16 131/95 97 03/10/18 11:24 03/10/18 15:51 03/10/18 19:35 03/10/18 19:35 03/10/18 15:51 Exam: General - AAO x 3 Psych - Appropriate affect/speech. No agitation Eyes - SKY. Eye lids intact. No scleral icterus Neuro - No gross peripheral or central neuro deficits on inspection Heart - Sinus. RRR. S1 and S2 present. No added HS/murmurs appreciated. No elevated JVD appreciated. Lung - Adequate air entry b/l, No crackles/wheezes appreciated GI - abdo scar, right upper quadrant discomfort on deep palpation. Otherwise soft. No hepatosplenomegaly/ascites. BS+ - No CVA/suprapubic tenderness or palpable bladder distension Skin - Intact. No rash/petechiae/ecchymosis. Warm extremities Internal Med - H&P Results - Labs CBC & Chem 7: 03/10/18 11:51 03/10/18 11:51 - Assessment and plan (1) Cholecystitis Current Visit: Yes Status: Acute Assessment and plan: Discussed with ED who had discussed case with Dr. Fraga of surgery who will consult. Suspect cholecystitis Will place nothing by mouth, IV fluids, IV antibiotics for now IV antibiotic when necessary (2) A-fib Current Visit: No Status: Chronic Assessment and plan: looks chronic AFib will hold home xarelto pending surgical evaluation Qualifiers: Atrial fibrillation type: chronic Qualified Code(s): I48.2 - Chronic atrial fibrillation (3) COPD (chronic obstructive pulmonary disease) Current Visit: No Status: Chronic Assessment and plan: Stable. When necessary albuterol as needed Qualifiers: COPD type: chronic bronchitis Qualified Code(s): J41.0 - Simple chronic bronchitis (4) Hyperlipidemia Current Visit: No Status: Chronic Assessment and plan: statin Qualifiers: Hyperlipidemia type: mixed hyperlipidemia Qualified Code(s): E78.2 - Mixed hyperlipidemia - Time Spent With Patient Total time spent is greater than 50% in coordination of care (as documented) at patient's floor/unit and/or counseling patient:
[2018-03-10] MEDS: Ringers Solution, Lactated 1,000 ML IVC SCH (21:35)
[2018-03-11] MEDS: Piperacillin/Tazobactam 3.375 GM in 0.9 % Sodium Chloride Mini Bag 100 ML IVPB SCH ×3 (00:40→16:51)
[2018-03-11 05:12] LABS: Basophils # 0.1 K/mcL (0.0-0.2); Basophils % 0.5 %; Eosinophils # 0.1 K/mcL (0.0-0.6); Eosinophils % 0.8 %; Hematocrit 38.2 % (37.5-50.1); Hemoglobin 12.5 g/dL (12.9-16.9); Immature Granulocytes % 0.6 % (0-4); Mean Corpuscular HGB Conc 32.7 g/dL (31.6-35.5); Mean Corpuscular Hemoglobin 28.5 pg (28.0-33.3); Mean Corpuscular Volume 87.2 fL (83.0-100.0); Mean Platelet Volume 9.8 fL (9.4-12.4); Monocytes # 0.4 K/mcL (0.0-1.3); Monocytes % 4.4 %; Neutrophils # 7.5 K/mcL (1.6-8.9); Platelet Count 210 K/mcL (140-400); Red Blood Count 4.38 M/mcL (4.19-5.50); Segmented Neutrophils % 73.7 %
[2018-03-11 05:19] LABS: INR 1.4; Prothrombin Time 14.7 Seconds (9.4-12.1)
[2018-03-11 05:22] LABS: Activated Partial Thrombo Time 33.6 Seconds (26.0-36.0)
[2018-03-11] MEDS: *HR* Enoxaparin 40 MG/0.4 ML SYRINGE SQ SCH (05:22)
[2018-03-11 05:31] LABS: Alanine Aminotransferase 100 Units/L (7-52); Albumin/Globulin Ratio 1.2 (1.1-2.2); Alkaline Phosphatase 420 Units/L (34-104); Aspartate Amino Transferase 71 Units/L (13-39); BUN/Creatinine Ratio 24 (6-26); Bilirubin,Total 2.3 mg/dL (0.3-1.0); Blood Urea Nitrogen 20 mg/dL (8-23); Calcium 8.7 mg/dL (8.6-10.3); Carbon Dioxide 26 mEq/L (23-29); Chloride 105 mEq/L (98-107); Globulin 2.5 g/dL (2.4-3.5); Glucose 105 mg/dL (70-105); Osmolality,Calculated 291 (280-300); Potassium 3.8 mEq/L (3.5-5.1); Sodium 139 mEq/L (136-145); Total Protein 5.5 g/dL (6.4-8.9); eGFR For African Americans > 60 (> 60); eGFR For Non-African Americans > 60 (> 60)
--- NOTE | 2018-03-11 08:02 | General Surg History&Physical ---
<Jayden Aguilar R - Last Filed: 03/11/18 11:15> Date of Encounter: 03/11/18 Time of Encounter: 07:49 Assessment and Plan (1) Cholecystitis Current Visit: Yes Status: Acute The assessment and plan as outlined above was discussed with the patient and/or family members who expressed understanding and agreement. All questions were answered. Leukocytosis and RUQ pain - imaging suggesting cholecystitis PLAN: Clear liquid diet - nothing fatty to aggravate pain Continue IV fluids Continue Zosyn Pain and nausea control Hold Xarelto - on lovenox now AM labs Will continue supportive care for now, expect laparoscopic cholecystectomy within the next few days History of Present Illness Chief complaint: RUQ pain HPI: Mr. Kenyon is a 82 year old male with PMH of A. fib (on xarelto), defibrillator, HTN, HLD, and COPD, presented to [facility] with a 2-3 week history of intermittent, sharp, RUQ pain. His pain is worse with food. Non-bloody emesis once when the pain began, but has not since. Associated symptoms include nausea, chills/sweats , and about a 20# weight loss over the past week because he has been avoiding food. He denies chest pain, dyspnea, skin changes, dysuria, diarrhea, constipation, hematochezia, or melena. PSH includes partial gastroduodenectomy ( 90% of stomach and 6 inches of duodenum d/t ulcers in 1970), biliary cyst drainage, ventral hernia repair, AICD placement, and orthopedic procedures on his shoulder. There was some confusion about his history and the reports on the images obtained refer to a history of cholecystectomy. He denies that his gallbladder was removed, and that he only had a cyst drained. Former smoker, quit > 40 years ago. States he is very active at home, doing outdoor chores and yard work. CT shows a loculated fluid collection [id number] in the gallbladder fossa, possible abscess U/S shows lobular cystic structure in RUQ in gallbladder fossa, no sonographic Falk's. Presence of wall thickness (0.46 cm) and sludge. CBD within normal limits for age, 0.7cm. Possible cholecystitis, abscess, or biloma. Past Med Surg Social Fam HX - Past Medical History Medical history: atrial fibrillation, COPD, GERD, hyperlipidemia, other Additional medical history: WELLS SYNDROME Psychiatric history: no psych history - Past Surgical History Surgical History: herniorrhaphy, orthopedic, other Additional surgical history: partial colectomy, ulcer removed from galbladder, nasal surgery, right shoulder scope, left knee scope, cataract surgery - Social History Smoking Status: Former smoker Smokeless Tobacco Status: No Alcohol use: none Drug use: none - Family History Mother Hx Family Cancer: Yes (Leukemia) Medications and Allergies Atorvastatin [Lipitor] 20 mg PO HS 12/02/15 [History] Albuterol Sulfate [Proair Hfa] 2 puff IH Q4H PRN 11/09/17 [History] Metoprolol Succinate [Toprol Xl] 25 mg PO DAILY 11/09/17 [History] Ciclopirox Olamine [Ciclopirox] 1 appl TP BID PRN 11/24/17 [History] Furosemide [Lasix] 20 mg PO DAILY PRN 11/24/17 [History] Triamcinolone Acet 0.1% CRM [Kenalog] 1 appl TP BID PRN 11/24/17 [History] Rivaroxaban [Xarelto] 20 mg PO DAILY 03/10/18 [History] 3 Allergy/AdvReac Type Severity Reaction Status Date / Time codeine AdvReac Confusion Verified 03/10/18 18:04 brown cloth tape Allergy Rash Uncoded 03/10/18 18:04 Review of Systems All systems PM: reviewed and no additional remarkable complaints except as stated All systems PM: The remainder of the systems were reviewed and are negative General Surgery Exam Initial Vital Signs Temp Pulse Resp BP Pulse Ox 97.6 F 91 16 131/70 98 03/10/18 11:05 03/10/18 11:05 03/10/18 11:05 03/10/18 11:05 03/10/18 11:05 - General physical appearance well developed, well nourished, no distress - Eyes normal ocular movement. negative: icteric - Respiratory normal expansion, normal respiratory effort, clear to auscultation - Cardiovascular Cardiovascular exam: Present: RRR - Abdomen Abdomen general surgery: Present: bowel sounds present, soft, tender (RUQ - positive Falk's sign), surgical scars (RLQ, midline, LLQ). Absent: distended , guarding, rebound, rigid - Integumentary Integumentary general surgery: Present: warm and dry, no abnormal pigmentation - Neurologic Present: CN 2-12 grossly intact, normal coordination - Psychiatric Psychiatric general surgery: Present: appropriate, oriented to person, oriented to place, oriented to time, speech is normal, memory intact Results - Labs 03/11/18 04:41 03/11/18 04:41 Abnormal lab results Hgb 12.5 g/dL (12.9-16.9) L 03/11/18 04:41 PT 14.7 Seconds (9.4-12.1) H 03/11/18 04:41 Total Bilirubin 2.3 mg/dL (0.3-1.0) H 03/11/18 04:41 Direct Bilirubin 1.1 mg/dL (0.0-0.2) H 03/10/18 11:51 Indirect Bilirubin 1.7 mg/dL (0.0-1.2) H 03/10/18 11:51 AST 71 Units/L (13-39) H 03/11/18 04:41 ALT 100 Units/L (7-52) H 03/11/18 04:41 Alkaline Phosphatase 420 Units/L (34-104) H 03/11/18 04:41 Serum Total Protein 5.5 g/dL (6.4-8.9) L 03/11/18 04:41 Albumin 3.0 g/dL (3.5-5.7) L 03/11/18 04:41 Lipase 8 Units/L (11-82) L 03/10/18 11:51 Urine Color [place] (Yellow) A 03/10/18 11:22 Urine Bilirubin Small (Negative) H 03/10/18 11:22 Urine Urobilinogen 4.0 mg/dL (Normal) H 03/10/18 11:22 Ur Leukocyte Esterase Trace (Negative) H 03/10/18 11:22 Urine Microscopic WBC 3-5 per hpf (0-3) H 03/10/18 11:22 Ur Squamous Epith Cells Many per lpf (None-Few) H 03/10/18 11:22 WBC Casts Few per lpf (None Seen) H 03/10/18 11:22 Urine Mucus Moderate (Few) H 03/10/18 11:22 Ur Culture Indicated? NO. (NO) A 03/10/18 11:22 Diabetes panel 03/11/18 Range/Units 04:41 Sodium 139 (136-145) mEq/L Potassium 3.8 (3.5-5.1) mEq/L Chloride 105 (98-107) mEq/L Carbon Dioxide 26 (23-29) mEq/L BUN 20 (8-23) mg/dL Creatinine 0.83 (0.70-1.30) mg/dL Glucose 105 (70-105) mg/dL Calcium 8.7 (8.6-10.3) mg/dL AST 71 H (13-39) Units/L ALT 100 H (7-52) Units/L Alkaline Phosphatase 420 H (34-104) Units/L Albumin 3.0 L (3.5-5.7) g/dL Calcium panel 03/11/18 Range/Units 04:41 Calcium 8.7 (8.6-10.3) mg/dL Albumin 3.0 L (3.5-5.7) g/dL Pituitary panel 03/11/18 Range/Units 04:41 Sodium 139 (136-145) mEq/L Potassium 3.8 (3.5-5.1) mEq/L Chloride 105 (98-107) mEq/L Carbon Dioxide 26 (23-29) mEq/L BUN 20 (8-23) mg/dL Creatinine 0.83 (0.70-1.30) mg/dL Glucose 105 (70-105) mg/dL Calcium 8.7 (8.6-10.3) mg/dL Adrenal panel 03/11/18 Range/Units 04:41 Sodium 139 (136-145) mEq/L Potassium 3.8 (3.5-5.1) mEq/L Chloride 105 (98-107) mEq/L Carbon Dioxide 26 (23-29) mEq/L BUN 20 (8-23) mg/dL Creatinine 0.83 (0.70-1.30) mg/dL Glucose 105 (70-105) mg/dL Calcium 8.7 (8.6-10.3) mg/dL Total Bilirubin 2.3 H (0.3-1.0) mg/dL AST 71 H (13-39) Units/L ALT 100 H (7-52) Units/L Alkaline Phosphatase 420 H (34-104) Units/L Albumin 3.0 L (3.5-5.7) g/dL All other labs normal. <Anival Fraga M - Last Filed: 03/11/18 12:21> Date of Encounter: 03/11/18 History of Present Illness HPI: Mr. Kenyon is a 82 year old male Review of Systems All systems PM: The remainder of the systems were reviewed and are negative General Surgery Exam Initial Vital Signs Temp Pulse Resp BP Pulse Ox 97.6 F 91 16 131/70 98 03/10/18 11:05 03/10/18 11:05 03/10/18 11:05 03/10/18 11:05 03/10/18 11:05 Results - Labs 03/11/18 04:41 03/11/18 04:41 Abnormal lab results Hgb 12.5 g/dL (12.9-16.9) L 03/11/18 04:41 PT 14.7 Seconds (9.4-12.1) H 03/11/18 04:41 Total Bilirubin 2.3 mg/dL (0.3-1.0) H 03/11/18 04:41 Direct Bilirubin 1.1 mg/dL (0.0-0.2) H 03/10/18 11:51 Indirect Bilirubin 1.7 mg/dL (0.0-1.2) H 03/10/18 11:51 AST 71 Units/L (13-39) H 03/11/18 04:41 ALT 100 Units/L (7-52) H 03/11/18 04:41 Alkaline Phosphatase 420 Units/L (34-104) H 03/11/18 04:41 Serum Total Protein 5.5 g/dL (6.4-8.9) L 03/11/18 04:41 Albumin 3.0 g/dL (3.5-5.7) L 03/11/18 04:41 Lipase 8 Units/L (11-82) L 03/10/18 11:51 Urine Color [place] (Yellow) A 03/10/18 11:22 Urine Bilirubin Small (Negative) H 03/10/18 11:22 Urine Urobilinogen 4.0 mg/dL (Normal) H 03/10/18 11:22 Ur Leukocyte Esterase Trace (Negative) H 03/10/18 11:22 Urine Microscopic WBC 3-5 per hpf (0-3) H 03/10/18 11:22 Ur Squamous Epith Cells Many per lpf (None-Few) H 03/10/18 11:22 WBC Casts Few per lpf (None Seen) H 03/10/18 11:22 Urine Mucus Moderate (Few) H 03/10/18 11:22 Ur Culture Indicated? NO. (NO) A 03/10/18 11:22 Diabetes panel 03/11/18 Range/Units 04:41 Sodium 139 (136-145) mEq/L Potassium 3.8 (3.5-5.1) mEq/L Chloride 105 (98-107) mEq/L Carbon Dioxide 26 (23-29) mEq/L BUN 20 (8-23) mg/dL Creatinine 0.83 (0.70-1.30) mg/dL Glucose 105 (70-105) mg/dL Calcium 8.7 (8.6-10.3) mg/dL AST 71 H (13-39) Units/L ALT 100 H (7-52) Units/L Alkaline Phosphatase 420 H (34-104) Units/L Albumin 3.0 L (3.5-5.7) g/dL Calcium panel 03/11/18 Range/Units 04:41 Calcium 8.7 (8.6-10.3) mg/dL Albumin 3.0 L (3.5-5.7) g/dL Pituitary panel 03/11/18 Range/Units 04:41 Sodium 139 (136-145) mEq/L Potassium 3.8 (3.5-5.1) mEq/L Chloride 105 (98-107) mEq/L Carbon Dioxide 26 (23-29) mEq/L BUN 20 (8-23) mg/dL Creatinine 0.83 (0.70-1.30) mg/dL Glucose 105 (70-105) mg/dL Calcium 8.7 (8.6-10.3) mg/dL Adrenal panel 03/11/18 Range/Units 04:41 Sodium 139 (136-145) mEq/L Potassium 3.8 (3.5-5.1) mEq/L Chloride 105 (98-107) mEq/L Carbon Dioxide 26 (23-29) mEq/L BUN 20 (8-23) mg/dL Creatinine 0.83 (0.70-1.30) mg/dL Glucose 105 (70-105) mg/dL Calcium 8.7 (8.6-10.3) mg/dL Total Bilirubin 2.3 H (0.3-1.0) mg/dL AST 71 H (13-39) Units/L ALT 100 H (7-52) Units/L Alkaline Phosphatase 420 H (34-104) Units/L Albumin 3.0 L (3.5-5.7) g/dL All other labs normal. - Attending Attestation I examined this patient and my medical decision-making was reviewed with the Resident Physician. I agree with the documented findings, disposition and treatment plan as described except to the extent set forth below. This is a consult note not a admitting H&P evaluation. I reviewed the above assessment and evaluation with the resident. Patient had a several day history of epigastric abdominal pain. Will allow his gallbladder be cooled down with only clear liquids. His laboratory studies seem to be improving and his pain is less. He has some mild discomfort to palpation in the right upper quadrant. It is possible we will be able to perform a laparoscopic cholecystectomy this week and. I will discuss this with one my colleagues will be covering for me over the weekend (Dr. Moncada). The patient agrees to the current plan.
[2018-03-11] MEDS: Metoprolol XL (24 HR) Succ 25 MG TAB.ER.24H PO SCH (08:49)
--- NOTE | 2018-03-11 09:12 | Internal Med Progress Note ---
<Jody Palacios - Last Filed: 03/11/18 09:10> Date of Encounter: 03/11/18 Time of Encounter: 09:10 - Assessment and plan (1) Cholecystitis Current Visit: Yes Status: Acute Assessment and plan: Will place nothing by mouth, IV fluids, IV antibiotics for now Pending assessment of surgery team for further recommendations (2) COPD (chronic obstructive pulmonary disease) Current Visit: Yes Status: Chronic Assessment and plan: Stable. When necessary albuterol as needed Qualifiers: COPD type: chronic bronchitis Qualified Code(s): J41.0 - Simple chronic bronchitis (3) A-fib Current Visit: Yes Status: Chronic Assessment and plan: chronic AFib will hold home xarelto pending surgical evaluation Qualifiers: Atrial fibrillation type: chronic Qualified Code(s): I48.2 - Chronic atrial fibrillation (4) Hyperlipidemia Current Visit: Yes Status: Chronic Assessment and plan: continue home medications Qualifiers: Hyperlipidemia type: mixed hyperlipidemia Qualified Code(s): E78.2 - Mixed hyperlipidemia - Time Spent With Patient Total time spent is greater than 50% in coordination of care (as documented) at patient's floor/unit and/or counseling patient: - Subjective Interval history: Patients states he is having some RUQ pain on palpation but is feeling better overall after IV fluids. Awaiting surgery plan. - Constitutional Vitals: Temp Pulse Resp BP Pulse Ox 97.6 F 86 16 156/73 96 03/11/18 08:00 03/11/18 08:00 03/11/18 08:00 03/11/18 08:00 03/11/18 08:00 General appearance: Present: A&O X 3, pleasant, no acute distress, answers questions appropriately - Head Head exam: Present: atraumatic, normocephalic - Respiratory Respiratory exam: Present: CTAB. Absent: accessory muscle use, rales, rhonchi, wheezes - Cardiovascular Cardiovascular exam: Present: irregular rhythm. Absent: bradycardia, tachycardia - GI/Abdominal GI/Abdominal exam: Present: tenderness (RUQ with superficial and deep palpation) . Absent: rigid, no peritoneal signs - Neurological Exam Neurological exam: Present: alert, oriented X3, no focal deficits Internal Medicine: Result - Labs CBC & Chem 7: 03/11/18 04:41 03/11/18 04:41 Labs: Short CBC 03/11/18 Range/Units 04:41 WBC 10.1 (4.3-11.1) K/mcL Hgb 12.5 L (12.9-16.9) g/dL Hct 38.2 (37.5-50.1) % Plt Count 210 (140-400) K/mcL Neutrophils # 7.5 (1.6-8.9) K/mcL BMP 03/11/18 04:41 Sodium 139 Potassium 3.8 Chloride 105 Carbon Dioxide 26 BUN 20 Creatinine 0.83 Glucose 105 Calcium 8.7 Liver Function 03/11/18 Range/Units 04:41 Total Bilirubin 2.3 H (0.3-1.0) mg/dL AST 71 H (13-39) Units/L ALT 100 H (7-52) Units/L Alkaline Phosphatase 420 H (34-104) Units/L Albumin 3.0 L (3.5-5.7) g/dL - ABG Interpretation ABG results: PT/INR, D-dimer PT 14.7 Seconds (9.4-12.1) H 03/11/18 04:41 Consult Discharge Plan - Plan Referrals: Robert Martinez MD [Primary Care Provider] - <Magdaleno Cage - Last Filed: 03/11/18 13:44> Date of Encounter: 03/11/18 - Assessment and plan (1) COPD (chronic obstructive pulmonary disease) Current Visit: Yes Status: Chronic Qualifiers: COPD type: chronic bronchitis Qualified Code(s): J41.0 - Simple chronic bronchitis (2) A-fib Current Visit: Yes Status: Chronic Qualifiers: Atrial fibrillation type: chronic Qualified Code(s): I48.2 - Chronic atrial fibrillation (3) Hyperlipidemia Current Visit: Yes Status: Chronic Qualifiers: Hyperlipidemia type: mixed hyperlipidemia Qualified Code(s): E78.2 - Mixed hyperlipidemia (4) Cholecystitis Current Visit: Yes Status: Acute - Time Spent With Patient Total time spent is greater than 50% in coordination of care (as documented) at patient's floor/unit and/or counseling patient: - Constitutional Vitals: Temp Pulse Resp BP Pulse Ox 97.6 F 95 16 149/95 96 03/11/18 11:48 03/11/18 11:48 03/11/18 11:48 03/11/18 11:48 03/11/18 11:48 Internal Medicine: Result - Labs CBC & Chem 7: 03/11/18 04:41 03/11/18 04:41 Labs: Short CBC 03/11/18 Range/Units 04:41 WBC 10.1 (4.3-11.1) K/mcL Hgb 12.5 L (12.9-16.9) g/dL Hct 38.2 (37.5-50.1) % Plt Count 210 (140-400) K/mcL Neutrophils # 7.5 (1.6-8.9) K/mcL BMP 03/11/18 04:41 Sodium 139 Potassium 3.8 Chloride 105 Carbon Dioxide 26 BUN 20 Creatinine 0.83 Glucose 105 Calcium 8.7 Liver Function 03/11/18 Range/Units 04:41 Total Bilirubin 2.3 H (0.3-1.0) mg/dL AST 71 H (13-39) Units/L ALT 100 H (7-52) Units/L Alkaline Phosphatase 420 H (34-104) Units/L Albumin 3.0 L (3.5-5.7) g/dL - ABG Interpretation ABG results: PT/INR, D-dimer PT 14.7 Seconds (9.4-12.1) H 03/11/18 04:41 - Attending Attestation I examined this patient and my medical decision-making was reviewed with the Resident Physician Dr. Palacios. I agree with the documented findings, disposition and treatment plan as described except to the extent set forth below. Mr. rodriguez is a 82 y/o M admitted for acute abdominal pain with cholecystitis. pt is tolerating clear liquid diet well. Abd pain also better. GenL A, A, O x 3 Chest: DBS Heart: S1S2+ Abd: soft, mild discomfort RUQ a/p 1. Acute cholecystitis 2. Acute obstructive jaundice Clear liquid diet analgesics PRN Scheduled for possible surgery in AM Cont trending on LFT's
[2018-03-11] MEDS ORDERED: Acetaminophen 325 MG TABLET PO PRN (11:17)
[2018-03-11] MEDS ORDERED: Ketorolac 15 MG/ML VIAL IVP PRN (11:18)
[2018-03-11] MEDS: Ringers Solution, Lactated 1,000 ML IVC SCH (21:21)
[2018-03-11] MEDS ORDERED: Ringers Solution, Lactated 1,000 ML IVC SCH (21:30)
[2018-03-12] MEDS: Piperacillin/Tazobactam 3.375 GM in 0.9 % Sodium Chloride Mini Bag 100 ML IVPB SCH ×4 (00:06→23:24)
[2018-03-12 01:27] LABS: Basophils % 0.4 %; Eosinophils # 0.1 K/mcL (0.0-0.6); Eosinophils % 1.1 %; Hematocrit 36.7 % (37.5-50.1); Hemoglobin 12.3 g/dL (12.9-16.9); Immature Granulocytes % 0.5 % (0-4); Lymphocytes # 2.1 K/mcL (0.6-4.6); Lymphocytes % 26.4 %; Mean Corpuscular HGB Conc 33.5 g/dL (31.6-35.5); Mean Corpuscular Hemoglobin 29.6 pg (28.0-33.3); Mean Corpuscular Volume 88.2 fL (83.0-100.0); Mean Platelet Volume 9.9 fL (9.4-12.4); Monocytes # 0.4 K/mcL (0.0-1.3); Monocytes % 5.3 %; Neutrophils # 5.3 K/mcL (1.6-8.9); Platelet Count 221 K/mcL (140-400); Red Blood Count 4.16 M/mcL (4.19-5.50); Segmented Neutrophils % 66.3 %
[2018-03-12 01:46] LABS: Alanine Aminotransferase 77 Units/L (7-52); Albumin 2.8 g/dL (3.5-5.7); Albumin/Globulin Ratio 1.1 (1.1-2.2); Alkaline Phosphatase 354 Units/L (34-104); Aspartate Amino Transferase 42 Units/L (13-39); BUN/Creatinine Ratio 17 (6-26); Bilirubin,Direct 0.7 mg/dL (0.0-0.2); Bilirubin,Indirect 1.2 mg/dL (0.0-1.2); Bilirubin,Total 1.9 mg/dL (0.3-1.0); Blood Urea Nitrogen 15 mg/dL (8-23); Calcium 8.5 mg/dL (8.6-10.3); Carbon Dioxide 25 mEq/L (23-29); Chloride 105 mEq/L (98-107); Globulin 2.5 g/dL (2.4-3.5); Glucose 109 mg/dL (70-105); Osmolality,Calculated 291 (280-300); Potassium 3.7 mEq/L (3.5-5.1); Sodium 140 mEq/L (136-145); Total Protein 5.3 g/dL (6.4-8.9); eGFR For African Americans > 60 (> 60); eGFR For Non-African Americans > 60 (> 60)
[2018-03-12] MEDS: *HR* Enoxaparin 40 MG/0.4 ML SYRINGE SQ SCH (05:32)
[2018-03-12] MEDS: Metoprolol XL (24 HR) Succ 25 MG TAB.ER.24H PO SCH (11:26)
--- NOTE | 2018-03-12 11:40 | General Surgery Progress Note ---
Date of Encounter: 03/12/18 Time of Encounter: 11:38 - Assessment and Plan (1) Cholecystitis Current Visit: Yes Status: Acute concern for acute cholecystitis; patient currently reports no significant pain at present; all imaging was reviewed and interpreted by me; patient does have a gallbladder that appears inflammed on CT, but less so on US will discuss with patient concerning surgery now or as an outpatient; Subjective Patient reports: no new complaints, feels better Objective Vital Signs - Last 8 Hours Temp Pulse Resp BP Pulse Ox 03/12/18 10:56 97.6 F 66 16 150/88 96 03/12/18 06:20 98.1 F 79 16 143/88 96 03/12/18 04:39 97.7 F 77 15 146/88 96 Intake and Output 03/11/18 03/12/18 03/12/18 23:59 07:59 15:59 Intake Total 1580 / 1580 100 / 100 Output Total 175 / 175 100 / 100 Balance 1580 / 1580 -75 / -75 -100 / -100 Intake: IV Fluids 1100 / 1100 100 / 100 Lactated Ringers 1,000 ML @ 100 1000 / 1000 mls/hr IVC .Q10H EVANGELISTA Rx#: [id number] Zosyn 3.375 GM In 0.9 % Sodium 100 / 100 100 / 100 Chloride (Mini-Bag +) 100 ML @ 25 mls/hr IVPB Q8HR EVANGELISTA Rx#: [id number] Oral 480 / 480 0 / 0 Output: Urine 175 / 175 100 / 100 Other: Meal Clears NPO for breakfst Percent of Meal Consumed 0% # Voids 1 # Bowel Movements 1 Blood Glucose* 101 - General physical appearance no distress - Respiratory normal expansion, normal respiratory effort - Abdomen Abdomen: Present: soft, non tender, surgical scars - Integumentary no abnormal pigmentation - Neurologic CN 2-12 grossly intact - Musculoskeletal normal posture - Psychiatric oriented to time, oriented to person, oriented to place - Labs 03/12/18 00:50 03/12/18 00:50 Diabetes panel 03/12/18 03/12/18 Range/Units 00:50 00:50 Sodium 140 (136-145) mEq/L Potassium 3.7 (3.5-5.1) mEq/L Chloride 105 (98-107) mEq/L Carbon Dioxide 25 (23-29) mEq/L BUN 15 (8-23) mg/dL Creatinine 0.89 (0.70-1.30) mg/dL Glucose 109 H (70-105) mg/dL Calcium 8.5 L (8.6-10.3) mg/dL AST 42 H 42 H (13-39) Units/L ALT 77 H 76 H (7-52) Units/L Alkaline Phosphatase 354 H 377 H (34-104) Units/L Albumin 2.8 L 2.8 L (3.5-5.7) g/dL Calcium panel 03/12/18 03/12/18 Range/Units 00:50 00:50 Calcium 8.5 L (8.6-10.3) mg/dL Albumin 2.8 L 2.8 L (3.5-5.7) g/dL Pituitary panel 03/12/18 Range/Units 00:50 Sodium 140 (136-145) mEq/L Potassium 3.7 (3.5-5.1) mEq/L Chloride 105 (98-107) mEq/L Carbon Dioxide 25 (23-29) mEq/L BUN 15 (8-23) mg/dL Creatinine 0.89 (0.70-1.30) mg/dL Glucose 109 H (70-105) mg/dL Calcium 8.5 L (8.6-10.3) mg/dL Adrenal panel 03/12/18 03/12/18 Range/Units 00:50 00:50 Sodium 140 (136-145) mEq/L Potassium 3.7 (3.5-5.1) mEq/L Chloride 105 (98-107) mEq/L Carbon Dioxide 25 (23-29) mEq/L BUN 15 (8-23) mg/dL Creatinine 0.89 (0.70-1.30) mg/dL Glucose 109 H (70-105) mg/dL Calcium 8.5 L (8.6-10.3) mg/dL Total Bilirubin 1.9 H 1.9 H (0.3-1.0) mg/dL AST 42 H 42 H (13-39) Units/L ALT 77 H 76 H (7-52) Units/L Alkaline Phosphatase 354 H 377 H (34-104) Units/L Albumin 2.8 L 2.8 L (3.5-5.7) g/dL - Imaging CT scan - abdomen: report reviewed, image reviewed CT Scan - head: report reviewed, image reviewed US - abdomen: report reviewed, image reviewed Consult Discharge Plan - Plan Referrals: Robert Martinez MD [Primary Care Provider] -
--- NOTE | 2018-03-12 12:10 | Internal Med Progress Note ---
Date of Encounter: 03/12/18 Time of Encounter: 11:30 - Assessment and plan (1) Cholecystitis Current Visit: Yes Status: Acute Assessment and plan: Scheduled for surgery today LFT's trending down Cont IV abx Analgesics PRN Cont supportive and symptomatic care Held Xarelto (2) Obstructive jaundice Current Visit: Yes Status: Acute Assessment and plan: Due to cholecystitis LFT's trending down (3) COPD (chronic obstructive pulmonary disease) Current Visit: Yes Status: Chronic Assessment and plan: Stable. When necessary albuterol as needed Qualifiers: COPD type: chronic bronchitis Qualified Code(s): J41.0 - Simple chronic bronchitis (4) A-fib Current Visit: Yes Status: Chronic Assessment and plan: chronic AFib rate controlled will hold home xarelto for surgery Qualifiers: Atrial fibrillation type: chronic Qualified Code(s): I48.2 - Chronic atrial fibrillation (5) Hyperlipidemia Current Visit: Yes Status: Chronic Assessment and plan: statin Qualifiers: Hyperlipidemia type: mixed hyperlipidemia Qualified Code(s): E78.2 - Mixed hyperlipidemia - Time Spent With Patient Total time spent is greater than 50% in coordination of care (as documented) at patient's floor/unit and/or counseling patient: - Subjective Interval history: Mr. rodriguez is a 82 y/o M with known COPD, HTN, Chronic afib on Xarelto for anti coag, and GERD pt admitted for acute abdominal pain with cholecystitis. pt states he is feeling little better today. Denied any CP / SOB. Abd pain also little better. he is scheduled for surgery today - Constitutional Vitals: Temp Pulse Resp BP Pulse Ox 97.6 F 66 16 150/88 96 03/12/18 10:56 03/12/18 10:56 03/12/18 10:56 03/12/18 10:56 03/12/18 10:56 General appearance: Present: A&O X 3, pleasant, no acute distress, answers questions appropriately - Head Head exam: Present: atraumatic, normal inspection - Neck Neck exam general surgery: Present: supple - Respiratory Respiratory exam: Present: decreased breath sounds. Absent: rales, respiratory distress, rhonchi, wheezes - Cardiovascular Cardiovascular exam: Present: irregular rhythm, +S1, +S2. Absent: systolic murmur, tachycardia - GI/Abdominal GI/Abdominal exam: Present: normal bowel sounds, soft, tenderness (mild RUQ tenderness). Absent: rebound, rigid - Extremities Exam Extremities exam: Absent: calf tenderness, pedal edema, tenderness - Back Exam Back exam: Absent: CVA tenderness (L), CVA tenderness (R) - Neurological Exam Neurological exam: Present: alert, oriented X3 - Psychiatric Psychiatric exam: Present: normal affect, normal mood Internal Medicine: Result - Labs CBC & Chem 7: 03/12/18 00:50 03/12/18 00:50 Labs: Short CBC 03/12/18 Range/Units 00:50 WBC 7.9 (4.3-11.1) K/mcL Hgb 12.3 L (12.9-16.9) g/dL Hct 36.7 L (37.5-50.1) % Plt Count 221 (140-400) K/mcL Neutrophils # 5.3 (1.6-8.9) K/mcL BMP 03/12/18 00:50 Sodium 140 Potassium 3.7 Chloride 105 Carbon Dioxide 25 BUN 15 Creatinine 0.89 Glucose 109 H Calcium 8.5 L Liver Function 03/12/18 03/12/18 Range/Units 00:50 00:50 Total Bilirubin 1.9 H 1.9 H (0.3-1.0) mg/dL Direct Bilirubin 0.7 H (0.0-0.2) mg/dL AST 42 H 42 H (13-39) Units/L ALT 77 H 76 H (7-52) Units/L Alkaline Phosphatase 354 H 377 H (34-104) Units/L Albumin 2.8 L 2.8 L (3.5-5.7) g/dL - ABG Interpretation ABG results: PT/INR, D-dimer PT 14.7 Seconds (9.4-12.1) H 03/11/18 04:41 Consult Discharge Plan - Plan Referrals: Roebrt Martinez MD [Primary Care Provider] -
--- NOTE | 2018-03-12 14:13 | Anesthesia Evaluation PreOp ---
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 History: Denies Any Significant HX Other Medical History: Other (Pt on Xarelto at home, stopped and switched to lovenox qd,) Anesthesia History: No Prior Anesthetic Complications, Past Anesthesia (Multiple , include subtotal gastrectomy, ventral hernia) Alcohol Use: none Drug use: none Medications and Allergies Atorvastatin [Lipitor] 20 mg PO HS 12/02/15 [History] Albuterol Sulfate [Proair Hfa] 2 puff IH Q4H PRN 11/09/17 [History] Metoprolol Succinate [Toprol Xl] 25 mg PO DAILY 11/09/17 [History] Ciclopirox Olamine [Ciclopirox] 1 appl TP BID PRN 11/24/17 [History] Furosemide [Lasix] 20 mg PO DAILY PRN 11/24/17 [History] Triamcinolone Acet 0.1% CRM [Kenalog] 1 appl TP BID PRN 11/24/17 [History] Rivaroxaban [Xarelto] 20 mg PO DAILY 03/10/18 [History] 3 Allergy/AdvReac Type Severity Reaction Status Date / Time codeine AdvReac Confusion Verified 03/10/18 18:04 brown cloth tape Allergy Rash Uncoded 03/10/18 18:04 - Meds/Allergy Pre-op Review Medications Reviewed: Yes Allergies Reviewed: Yes Beta Blockers on Current Med List: Yes If Beta Blockers taken, Date/Time (Last Dose taken): 1126 Anesthesia Results - Labs 03/12/18 00:50 03/12/18 00:50 Laboratory Tests 03/11/18 03/12/18 04:41 00:50 PT 14.7 H INR 1.4 Calcium 8.5 L Total Bilirubin 1.9 H Serum Total Protein 5.3 L Albumin 2.8 L - Imaging Additional studies: TTE 08/2017: LVEF 55%. Normal LV chamber size, wall thickness and function. Atypical septal motion consistent with bundle branch block. Indeterminate diastolic function. Normal right ventricular structure and function. Mild pulmonary hypertension. No significant valvular dysfunction. Anesthesia Exam Vital Signs/O2 Sat/Glucose, Most Recent Temp Pulse Resp BP Pulse Ox 97.6 F 66 16 150/88 96 03/12/18 10:56 03/12/18 10:56 03/12/18 10:56 03/12/18 10:56 03/12/18 10:56 Blood Glucose* 101 Weight: 95 Kg BMI 30 NPO (# of Hours): 8 - HEENT Mallampati: II Teeth: Missing Denture Type: Upper: Complete Oral Opening: Greater than 3 - Cardiac Rhythm: Irregular - Pulmonary Breath Sounds: bilateral Clear Anesthesia Assess/Plan ASA Score: 3 Modified Huntley Scale for Level of Consciousness: Cooperative, oriented, and tranquil Anesthetic Plan: General Monitoring Plan: Standard Monitors Recovery Plan: PACU
[2018-03-12] MEDS ORDERED: *HR* Propofol 200 MG/20 ML VIAL IVP ONE (14:20)
[2018-03-12] MEDS ORDERED: *HR* FentaNYL (PF) 100 MCG/2 ML VIAL ONE ×2 (14:20→15:52)
[2018-03-12] MEDS ORDERED: *HR* Succinylcholine 200 MG/10 ML VIAL IVP ONE (16:05)
[2018-03-12] MEDS ORDERED: Ondansetron 4 MG/2 ML VIAL ONE (16:05)
[2018-03-12] MEDS ORDERED: *HR* Rocuronium Bromide 50 MG/5 ML VIAL ONE (16:05)
[2018-03-12] MEDS ORDERED: *HR* Metoprolol 5 MG/5 ML VIAL IVP ONE (16:05)
[2018-03-12] MEDS ORDERED: Lidocaine -MPF 2% 2 ML VIAL ONE (16:05)
[2018-03-12] MEDS ORDERED: Dexamethasone 4 MG/ML VIAL ONE (16:05)
[2018-03-12] MEDS ORDERED: *HR* PHENYLEPHRINE 1,000 MCG/10 ML SYRINGE IVP ONE (16:06)
[2018-03-12] MEDS ORDERED: *HR* Magnesium Sulfate 1 GM/2 ML VIAL ONE (16:06)
[2018-03-12] MEDS ORDERED: *HR* HYDROmorphone (PF) 1 MG/ML SYRINGE IVP PRN (17:13)
--- NOTE | 2018-03-12 18:12 | Operative Note ---
Date of procedure: 03/12/18 Pre-op diagnosis: acute cholecystitis Post-op diagnosis: other (abdominal pain of unknown etiology) Procedure: robotic exploration of the abdomen, lysis of adhesions for 60min; Implants: none Complications: none Anesthesia: GETA Local Anesthetics: 0.5% Sensorcaine HCL SubQ (cc) Surgeon: Keith Hutson Was there an undertaker assistant present: Yes Geriatric Assistant: Lin Maxwell Estimated blood loss (cc): 100 Specimen: none Condition: stable Disposition: PACU Procedure in Detail: The patient was brought into the operating room suite and was placed in the supine position. Mechanical DVT prophylaxis was applied. A time-in was conducted. The patient underwent smooth induction of anesthesia. Preoperative antibiotics were given. The patient was prepped and draped in the usual fashion. A time-out was held identifying the correct patient, pathology, and procedure. Everyone was in agreement and we began the procedure. It should be stated that I did inject 2cc of ICG prior to prepping the patient. Incision to Dissection I started by creating a 12mm supraumbilical incision. Via open Jennifer technique I did enter into the abdomen. I inserted the 12mm trocar followed by the 30 degree camera. It was clear that I was within the abdomen, but my view was obscured by what appeared to be omentum adhered to the anterior abdominal wall and hanging down. I removed the camera and trocar, closed the fascia, and selected a place to enter into the abdomen along the LUQ. Using the visiport, I was able to enter into the abdomen, insert the camera and confirm that the omentum was indeed adhered to the anterior abdominal wall. In addition to that what looked like the transverse colon and/or small intestine was also adhered in the epigastric region and RUQ. I set up as if I were about to perform a ventral hernia repair with two other 8mm trocars along the left side. I moved the camera to the middle port, then docked the robot in the usual fashion. At the Console I was able to clearly find an avascular plane between the omentum and the anterior abdominal wall. I was then able to take down the majority of the adhesions obscuring the view of the abdominal wall. This took about 40minutes. I did encounter bleeding from the omentum that was released from the abdominal wall. I used the bipolar function with the [place] instrument to control for hemostasis. I then inserted, under direct visualization a supraumbilical port (superior to the original incision), and another port for the robot one handbreadth to the right and an assist port lateral to that. It should be stated that it was clear that patient had a prior umbilical hernia repair as well. The mesh was still intact; I then undocked the robot, set up for a cholecystectomy in the usual fashion, and redocked. I continued with the lysis of adhesions for about 20minutes. As I progressed toward the RUQ, I utilized the firefly mode on the robot and it highlighted the liver. What was clear to me what that behind a thick wall of adhesions, the liver was retracted upwards towards the anterior abdominal wall. In addition, the bile/ICG also lit up within the bowel that was also adhered in the RUQ. It was clear to me at this point 1 or 2 things: either the patient was mistaken, as was the radiology reports, and this patient already had a cholecystectomy after his original surgery 40+ years ago OR after his surgery he developed so much scar tissue that to access the gallbladder is nigh impossible, would likely require a much bigger procedure that, at this point, would cause more harm than good. With that in mind I decided to conclude the procedure. I placed two sheets of surgicel within the abdomen: one on the liver as there was some oozing during the lysis of adhesions. There was no obvious bleeding prior to placing the surgicel, but just as precaution it was placed. I also evaluated the released omentum. there was no bleeding, but, in like fashion, I placed a sheet of surgicel on top of it. Closure I suctioned as much insufflation as I could. Closed all skin incisions with the monocryl suture in an interrupted fashion. The patient tolerated the procedure well and went back to PACU in stable condition.
--- NOTE | 2018-03-12 19:16 | Event Note ---
Date of Encounter: 03/12/18 Time of Encounter: 19:06 s/p robotic exploration with LEELA x 60 min; unable to visualize gallbladder. strongly suspect his gallbladder was removed during his original surgery as I saw what appeared to be a RNY reconstruction and likely a choledo-jejunostomy vs hepatico-jejunostomy; In the highly UNLIKELY event that this patient does have his gallbladder, it is behind a wall of dense adhesions and small and large bowel. If there is still a strong desire to evaluate the RUQ, recommend either repeat CT with PO contrast or MRCP; In any event, I think the focus should be either to see if he can tolerate a diet on his own and have his pain medically managed OR establish enteral nutrition; Will reassess patient in AM to see if he is ready for a diet; At present keep patient NPO, hold on anticoagulation and chemical dvt prophylaxis at present
--- NOTE | 2018-03-12 19:39 | Anesthesia Evaluation Post Op ---
Date of Encounter: 03/12/18 Time of Encounter: 18:09 Notes: Patient's vital signs have been reviewed. Patient is stable postoperatively and has adequately recovered from anesthesia. Patient is determined to have stable airway patency and respiratory function including respiratory rate and oxygen saturation. Patient has a stable heart rate, blood pressure and adequate hydration. Patients mental status is acceptable. Patients temperature is appropriate. Pain and nausea are adequately controlled. - Discharge PostOp Status: Transfer Patient to floor
[2018-03-13 04:59] LABS: Basophils % 0.3 %; Hematocrit 37.6 % (37.5-50.1); Hemoglobin 12.1 g/dL (12.9-16.9); Immature Granulocytes % 0.6 % (0-4); Lymphocytes # 1.6 K/mcL (0.6-4.6); Mean Corpuscular HGB Conc 32.2 g/dL (31.6-35.5); Mean Corpuscular Hemoglobin 28.4 pg (28.0-33.3); Mean Corpuscular Volume 88.3 fL (83.0-100.0); Mean Platelet Volume 10.3 fL (9.4-12.4); Monocytes # 0.5 K/mcL (0.0-1.3); Monocytes % 5.2 %; Neutrophils # 6.6 K/mcL (1.6-8.9); Platelet Count 260 K/mcL (140-400); Red Blood Count 4.26 M/mcL (4.19-5.50); Red Cell Distribution Width 14.3 % (11.5-14.5); Segmented Neutrophils % 75.9 %
[2018-03-13 05:18] LABS: Magnesium 2.3 mg/dL (1.6-2.6)
[2018-03-13 05:34] LABS: Alanine Aminotransferase 74 Units/L (7-52); Albumin 3.1 g/dL (3.5-5.7); Albumin/Globulin Ratio 1.2 (1.1-2.2); Alkaline Phosphatase 348 Units/L (34-104); Aspartate Amino Transferase 44 Units/L (13-39); BUN/Creatinine Ratio 15 (6-26); Blood Urea Nitrogen 14 mg/dL (8-23); Carbon Dioxide 27 mEq/L (23-29); Chloride 104 mEq/L (98-107); Globulin 2.6 g/dL (2.4-3.5); Glucose 136 mg/dL (70-105); Osmolality,Calculated 291 (280-300); Potassium 4.7 mEq/L (3.5-5.1); Sodium 139 mEq/L (136-145); Total Protein 5.7 g/dL (6.4-8.9); eGFR For African Americans > 60 (> 60); eGFR For Non-African Americans > 60 (> 60)
[2018-03-13] MEDS: Metoprolol XL (24 HR) Succ 25 MG TAB.ER.24H PO SCH (07:50)
[2018-03-13] MEDS: Piperacillin/Tazobactam 3.375 GM in 0.9 % Sodium Chloride Mini Bag 100 ML IVPB SCH ×2 (07:51→15:42)
--- NOTE | 2018-03-13 11:43 | General Surgery Progress Note ---
<Jayden Aguilar - Last Filed: 03/13/18 11:38> Date of Encounter: 03/13/18 Time of Encounter: 07:35 - Assessment and Plan (1) RUQ abdominal pain Current Visit: Yes Status: Acute POD #1 Robotic Exploration of abdomen and LEELA Further discussion with radiologist mentions gallbladder is present No gallbladder identified during operation - if present it is behind a wall of dense adhesions and bowel Bilirubin and hepatic enzymes stable compared to yesterday PLAN: Advance diet and monitor symptoms - clears today May consider repeat CT with PO contrast or MRCP in the future if symptoms persist Continue supportive care Subjective Patient reports: no new complaints, feels better, pain is less, voiding w/o difficulty, flatus, afebrile Objective Vital Signs - Last 8 Hours Temp Pulse Resp BP Pulse Ox 03/13/18 10:56 98.0 F 72 16 136/88 95 03/13/18 05:11 97.7 F 87 14 120/74 95 Intake and Output 03/12/18 03/13/18 03/13/18 23:59 07:59 15:59 Intake Total 100 / 100 100 / 100 Output Total 100 / 100 825 / 825 0 / 0 Balance 0 / 0 -725 / -725 0 / 0 Intake: IV Fluids 100 / 100 100 / 100 Zosyn 3.375 GM In 0.9 % Sodium 100 / 100 100 / 100 Chloride (Mini-Bag +) 100 ML @ 25 mls/hr IVPB Q8HR [facility] Rx#: [id number] Oral 0 / 0 0 / 0 Output: Urine 0 / 0 825 / 825 0 / 0 Estimated Blood Loss 100 / 100 Other: Weight 94.4 kg Blood Glucose* 135 115 Patient Weight 03/13/18 23:59 Weight 94.4 kg - General physical appearance well developed, well nourished, no distress - Eyes normal ocular movement - Respiratory normal expansion, normal respiratory effort, clear to auscultation - Cardiovascular Cardiovascular exam: Present: RRR - Abdomen Abdomen: Present: bowel sounds present, soft, tender (appropriately) - Incision Incision: Present: clean and dry, intact. Absent: erythema, purulent - Integumentary no rash, no abnormal pigmentation - Neurologic CN 2-12 grossly intact - Psychiatric oriented to time, oriented to person, oriented to place, speech is normal, memory intact - Labs 03/13/18 04:01 03/13/18 04:01 Diabetes panel 03/13/18 Range/Units 04:01 Sodium 139 (136-145) mEq/L Potassium 4.7 (3.5-5.1) mEq/L Chloride 104 (98-107) mEq/L Carbon Dioxide 27 (23-29) mEq/L BUN 14 (8-23) mg/dL Creatinine 0.93 (0.70-1.30) mg/dL Glucose 136 H (70-105) mg/dL Calcium 9.0 (8.6-10.3) mg/dL AST 44 H (13-39) Units/L ALT 74 H (7-52) Units/L Alkaline Phosphatase 348 H (34-104) Units/L Albumin 3.1 L (3.5-5.7) g/dL Calcium panel 03/13/18 Range/Units 04:01 Calcium 9.0 (8.6-10.3) mg/dL Albumin 3.1 L (3.5-5.7) g/dL Pituitary panel 03/13/18 Range/Units 04:01 Sodium 139 (136-145) mEq/L Potassium 4.7 (3.5-5.1) mEq/L Chloride 104 (98-107) mEq/L Carbon Dioxide 27 (23-29) mEq/L BUN 14 (8-23) mg/dL Creatinine 0.93 (0.70-1.30) mg/dL Glucose 136 H (70-105) mg/dL Calcium 9.0 (8.6-10.3) mg/dL Adrenal panel 03/13/18 Range/Units 04:01 Sodium 139 (136-145) mEq/L Potassium 4.7 (3.5-5.1) mEq/L Chloride 104 (98-107) mEq/L Carbon Dioxide 27 (23-29) mEq/L BUN 14 (8-23) mg/dL Creatinine 0.93 (0.70-1.30) mg/dL Glucose 136 H (70-105) mg/dL Calcium 9.0 (8.6-10.3) mg/dL Total Bilirubin 2.0 H (0.3-1.0) mg/dL AST 44 H (13-39) Units/L ALT 74 H (7-52) Units/L Alkaline Phosphatase 348 H (34-104) Units/L Albumin 3.1 L (3.5-5.7) g/dL - VTE Documentation of Mechanical Device: Intermittent pneumatic compression device Consult Discharge Plan - Plan Referrals: Robert Martinez MD [Primary Care Provider] - <Keith Hutson - Last Filed: 03/13/18 12:43> Date of Encounter: 03/13/18 - Assessment and Plan (1) Cholecystitis Current Visit: Yes Status: Acute Objective Vital Signs - Last 8 Hours Temp Pulse Resp BP Pulse Ox 03/13/18 10:56 98.0 F 72 16 136/88 95 03/13/18 05:11 97.7 F 87 14 120/74 95 Intake and Output 03/12/18 03/13/18 03/13/18 23:59 07:59 15:59 Intake Total 100 / 100 100 / 100 720 / 720 Output Total 100 / 100 825 / 825 0 / 0 Balance 0 / 0 -725 / -725 720 / 720 Intake: IV Fluids 100 / 100 100 / 100 Zosyn 3.375 GM In 0.9 % Sodium 100 / 100 100 / 100 Chloride (Mini-Bag +) 100 ML @ 25 mls/hr IVPB Q8HR [facility] Rx#: [id number] Oral 0 / 0 0 / 0 720 / 720 Output: Urine 0 / 0 825 / 825 0 / 0 Estimated Blood Loss 100 / 100 Other: Weight 94.4 kg Blood Glucose* 135 115 Patient Weight 03/13/18 23:59 Weight 94.4 kg - Labs 03/13/18 04:01 03/13/18 04:01 Diabetes panel 03/13/18 Range/Units 04:01 Sodium 139 (136-145) mEq/L Potassium 4.7 (3.5-5.1) mEq/L Chloride 104 (98-107) mEq/L Carbon Dioxide 27 (23-29) mEq/L BUN 14 (8-23) mg/dL Creatinine 0.93 (0.70-1.30) mg/dL Glucose 136 H (70-105) mg/dL Calcium 9.0 (8.6-10.3) mg/dL AST 44 H (13-39) Units/L ALT 74 H (7-52) Units/L Alkaline Phosphatase 348 H (34-104) Units/L Albumin 3.1 L (3.5-5.7) g/dL Calcium panel 03/13/18 Range/Units 04:01 Calcium 9.0 (8.6-10.3) mg/dL Albumin 3.1 L (3.5-5.7) g/dL Pituitary panel 03/13/18 Range/Units 04:01 Sodium 139 (136-145) mEq/L Potassium 4.7 (3.5-5.1) mEq/L Chloride 104 (98-107) mEq/L Carbon Dioxide 27 (23-29) mEq/L BUN 14 (8-23) mg/dL Creatinine 0.93 (0.70-1.30) mg/dL Glucose 136 H (70-105) mg/dL Calcium 9.0 (8.6-10.3) mg/dL Adrenal panel 03/13/18 Range/Units 04:01 Sodium 139 (136-145) mEq/L Potassium 4.7 (3.5-5.1) mEq/L Chloride 104 (98-107) mEq/L Carbon Dioxide 27 (23-29) mEq/L BUN 14 (8-23) mg/dL Creatinine 0.93 (0.70-1.30) mg/dL Glucose 136 H (70-105) mg/dL Calcium 9.0 (8.6-10.3) mg/dL Total Bilirubin 2.0 H (0.3-1.0) mg/dL AST 44 H (13-39) Units/L ALT 74 H (7-52) Units/L Alkaline Phosphatase 348 H (34-104) Units/L Albumin 3.1 L (3.5-5.7) g/dL - Attending Attestation I have personally seen and examined the patient. I have reviewed pertinent labs , imaging, progress notes, including this one. I agree with the above assessment and plan and wish to include the following... CLD today; if tolerates clears today, then okay to advance to FLD in AM; recommend MRCP or contrast study to evaluate anatomy; pertinent to do before a circumstance arises that requires surgery; recommend restarting blood thinners in AM recommend PPI (as patient is not on them and has not been on them and may have a marginal ulcer) as well as carafate general surgery will continue to follow
--- NOTE | 2018-03-13 14:25 | Internal Med Progress Note ---
Date of Encounter: 03/13/18 Time of Encounter: 11:00 - Assessment and plan (1) Cholecystitis Current Visit: Yes Status: Acute Assessment and plan: s/p Robotic Exploration of abdomen on 03/12/18, unable to identify gallbladder since it might be behind a wall of dense adhesions and bowel LFT's trending down Cont IV abx Analgesics PRN Cont supportive and symptomatic care Held Xarelto started on clear liquid diet today (2) Obstructive jaundice Current Visit: Yes Status: Acute Assessment and plan: Due to cholecystitis LFT's trending down (3) COPD (chronic obstructive pulmonary disease) Current Visit: Yes Status: Chronic Assessment and plan: Stable. When necessary albuterol as needed Qualifiers: COPD type: chronic bronchitis Qualified Code(s): J41.0 - Simple chronic bronchitis (4) A-fib Current Visit: Yes Status: Chronic Assessment and plan: chronic AFib rate controlled will hold home xarelto for surgery Qualifiers: Atrial fibrillation type: chronic Qualified Code(s): I48.2 - Chronic atrial fibrillation (5) Hyperlipidemia Current Visit: Yes Status: Chronic Assessment and plan: statin Qualifiers: Hyperlipidemia type: mixed hyperlipidemia Qualified Code(s): E78.2 - Mixed hyperlipidemia - Time Spent With Patient Total time spent is greater than 50% in coordination of care (as documented) at patient's floor/unit and/or counseling patient: - Subjective Interval history: Mr. rodriguez is a 82 y/o M with known COPD, HTN, Chronic afib on Xarelto for anti coag, and GERD pt admitted for acute abdominal pain with cholecystitis. pt states he is feeling little better today. he did have Robotic Exploration of abdomen on 03/12/18, unable to identify gallbladder since it might be behind a wall of dense adhesions and bowel. Denied any CP / SOB. Abd pain also little better. - Constitutional Vitals: Temp Pulse Resp BP Pulse Ox 97.9 F 81 16 143/83 94 03/13/18 14:16 03/13/18 14:16 03/13/18 14:16 03/13/18 14:16 03/13/18 14:16 General appearance: Present: A&O X 3, pleasant, no acute distress, answers questions appropriately - Head Head exam: Present: atraumatic, normal inspection - Neck Neck exam general surgery: Present: supple - Respiratory Respiratory exam: Present: decreased breath sounds. Absent: rales, respiratory distress, rhonchi, wheezes - Cardiovascular Cardiovascular exam: Present: RRR, +S1, +S2. Absent: tachycardia - GI/Abdominal GI/Abdominal exam: Present: normal bowel sounds, soft, tenderness (RUQ). Absent : rebound, rigid - Extremities Exam Extremities exam: Absent: calf tenderness, pedal edema, tenderness - Back Exam Back exam: Absent: CVA tenderness (L), CVA tenderness (R) - Neurological Exam Neurological exam: Present: alert, oriented X3 - Psychiatric Psychiatric exam: Present: normal affect, normal mood Internal Medicine: Result - Labs CBC & Chem 7: 03/13/18 04:01 03/13/18 04:01 Labs: Short CBC 03/13/18 Range/Units 04:01 WBC 8.7 (4.3-11.1) K/mcL Hgb 12.1 L (12.9-16.9) g/dL Hct 37.6 (37.5-50.1) % Plt Count 260 (140-400) K/mcL Neutrophils # 6.6 (1.6-8.9) K/mcL BMP 03/13/18 04:01 Sodium 139 Potassium 4.7 Chloride 104 Carbon Dioxide 27 BUN 14 Creatinine 0.93 Glucose 136 H Calcium 9.0 Liver Function 03/13/18 Range/Units 04:01 Total Bilirubin 2.0 H (0.3-1.0) mg/dL AST 44 H (13-39) Units/L ALT 74 H (7-52) Units/L Alkaline Phosphatase 348 H (34-104) Units/L Albumin 3.1 L (3.5-5.7) g/dL - ABG Interpretation ABG results: PT/INR, D-dimer PT 14.7 Seconds (9.4-12.1) H 03/11/18 04:41 - VTE Documentation of Mechanical Device: Intermittent pneumatic compression device Consult Discharge Plan - Plan Referrals: Robert Martinez MD [Primary Care Provider] -
--- NOTE | 2018-03-13 21:11 | Electrocardiograph Report ---
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
[2018-03-14] MEDS: Piperacillin/Tazobactam 3.375 GM in 0.9 % Sodium Chloride Mini Bag 100 ML IVPB SCH ×4 (00:04→23:27)
--- NOTE | 2018-03-14 09:18 | General Surgery Progress Note ---
<Kelsey Hassan Becky - Last Filed: 03/14/18 09:15> Date of Encounter: 03/14/18 Time of Encounter: 08:00 - Assessment and Plan (1) RUQ abdominal pain Current Visit: Yes Status: Acute Date of procedure: 03/12/18 Pre-op diagnosis: acute cholecystitis Post-op diagnosis: other (abdominal pain of unknown etiology) Procedure: robotic exploration of the abdomen, lysis of adhesions for 60min; POD#2 as above. Per the operative report, the gallbladder was not the visualized during the procedure. There was reported a thick wall of adhesions noted. And additionally the Venecia lasts ICG also lit up within the bowel that was also adhered to the right upper quadrant. Indicating one or 2 things: the patient was mistaken and had underwent a cholecystectomy or he has developed so much scar tissue that access to the gallbladder was not possible. Patient states his abdominal discomfort is improved today, denies nausea or vomiting, endorses increased burping, denies fever or chills. He is mildly tender on exam. His CBC is unremarkable however his LFTs remain elevated and as does total bilirubin We will attempt a Hida scan with medication in an effort to attempt to visualize the gallbladder. Further recommendations pending. NPO for exam. May resume medications after Haida scan is completed. Discomfort management and supportive care add PPI and Carafate fractionate bilirubin Subjective Patient reports: no new complaints, still having pain, pain is less, voiding w/ o difficulty, flatus, no bowel movement, afebrile Objective Vital Signs - Last 8 Hours Temp Pulse Resp BP Pulse Ox 03/14/18 07:03 97.8 F 80 14 115/75 94 03/14/18 04:33 96.5 F L 71 16 122/82 97 Intake and Output 03/13/18 03/14/18 03/14/18 23:59 07:59 15:59 Intake Total 100 / 100 100 / 100 Output Total 200 / 200 200 / 200 Balance -100 / -100 -100 / -100 Intake: IV Fluids 100 / 100 100 / 100 Zosyn 3.375 GM In 0.9 % Sodium 100 / 100 100 / 100 Chloride (Mini-Bag +) 100 ML @ 25 mls/hr IVPB Q8HR [facility] Rx#: [id number] Oral 0 / 0 0 / 0 Output: Urine 200 / 200 200 / 200 Other: Weight 94 kg Patient Weight 03/14/18 23:59 Weight 94 kg - General physical appearance well developed, well nourished, no distress - Eyes normal ocular movement - ENT CN 2-12 grossly intact - Neck Neck exam: no lymphadectomy - Respiratory normal expansion, normal respiratory effort - Cardiovascular Cardiovascular exam: Present: distant heart sounds Addtional Comments: Regular rate :80's - Abdomen Abdomen: Present: bowel sounds present, soft, tender (mild tenderness) Hernia: none - Integumentary no rash, no growths - Neurologic CN 2-12 grossly intact, normal coordination - Musculoskeletal normal gait, normal posture - Psychiatric oriented to time, oriented to person, oriented to place, speech is normal - Labs 03/13/18 04:01 03/13/18 04:01 - VTE Documentation of Mechanical Device: Intermittent pneumatic compression device Consult Discharge Plan - Plan Referrals: Robert Martinez MD [Primary Care Provider] - <Keith Hutson - Last Filed: 03/14/18 10:58> Date of Encounter: 03/14/18 - Assessment and Plan (1) Cholecystitis Current Visit: Yes Status: Acute Objective Vital Signs - Last 8 Hours Temp Pulse Resp BP Pulse Ox 03/14/18 07:03 97.8 F 80 14 115/75 94 03/14/18 04:33 96.5 F L 71 16 122/82 97 Intake and Output 03/13/18 03/14/18 03/14/18 23:59 07:59 15:59 Intake Total 100 / 100 100 / 100 Output Total 200 / 200 200 / 200 150 / 150 Balance -100 / -100 -100 / -100 -150 / -150 Intake: IV Fluids 100 / 100 100 / 100 Zosyn 3.375 GM In 0.9 % Sodium 100 / 100 100 / 100 Chloride (Mini-Bag +) 100 ML @ 25 mls/hr IVPB Q8HR [facility] Rx#: [id number] Oral 0 / 0 0 / 0 Output: Urine 200 / 200 200 / 200 150 / 150 Other: Weight 94 kg Patient Weight 03/14/18 23:59 Weight 94 kg - Labs 03/13/18 04:01 03/13/18 04:01 Adrenal panel 03/13/18 Range/Units 04:01 Total Bilirubin 1.9 H (0.3-1.0) mg/dL - Attending Attestation I have personally seen and examined the patient. I have reviewed pertinent labs , imaging, progress notes, including this one. I agree with the above assessment and plan.
[2018-03-14 09:46] LABS: Bilirubin,Direct 0.7 mg/dL (0.0-0.2); Bilirubin,Indirect 1.2 mg/dL (0.0-1.2); Bilirubin,Total 1.9 mg/dL (0.3-1.0)
--- NOTE | 2018-03-14 10:53 | Internal Med Progress Note ---
<[place] Fam - Last Filed: 03/14/18 10:22> Date of Encounter: 03/14/18 Time of Encounter: 08:50 - Assessment and plan (1) Cholecystitis Current Visit: Yes Status: Acute Assessment and plan: s/p Robotic Exploration of abdomen on 03/12/18, unable to identify gallbladder since it might be behind a wall of dense adhesions and bowel LFT's trending down Cont IV abx Analgesics PRN Cont supportive and symptomatic care Held Xarelto NPO for HIDA scan today (2) COPD (chronic obstructive pulmonary disease) Current Visit: Yes Status: Chronic Assessment and plan: Stable. When necessary albuterol as needed Qualifiers: COPD type: chronic bronchitis Qualified Code(s): J41.0 - Simple chronic bronchitis (3) A-fib Current Visit: Yes Status: Chronic Assessment and plan: chronic AFib rate controlled xarelto was held for surgery Qualifiers: Atrial fibrillation type: chronic Qualified Code(s): I48.2 - Chronic atrial fibrillation (4) Hyperlipidemia Current Visit: Yes Status: Chronic Assessment and plan: cont statin Qualifiers: Hyperlipidemia type: mixed hyperlipidemia Qualified Code(s): E78.2 - Mixed hyperlipidemia (5) Obstructive jaundice Current Visit: Yes Status: Acute Assessment and plan: Due to cholecystitis LFT's trending down - Time Spent With Patient Total time spent is greater than 50% in coordination of care (as documented) at patient's floor/unit and/or counseling patient: - Subjective Interval history: Patient seen and examined lying in bed, he notes abdominal pain with movement and with palpation. He states previously he had been doing well with clear liquids. Clinical picture supportive of obstructive biliary colic that appears to be improving. Patient states he spoke to surgery today with plan for further imaging (HIDA scan). - Constitutional Vitals: Temp Pulse Resp BP Pulse Ox 97.8 F 80 14 115/75 94 03/14/18 07:03 03/14/18 07:03 03/14/18 07:03 03/14/18 07:03 03/14/18 07:03 General appearance: Present: cooperative, A&O X 3, pleasant, no acute distress, answers questions appropriately - Head Head exam: Present: atraumatic, normal inspection, normocephalic - Eye Eye exam: Present: EOMI, normal appearance - ENT ENT exam: Present: mucous membranes dry - Neck Neck exam general surgery: Present: full ROM, normal inspection - Respiratory Respiratory exam: Present: CTAB. Absent: respiratory distress, rhonchi, stridor - Cardiovascular Cardiovascular exam: Present: RRR, +S1, +S2. Absent: gallop, rubs - GI/Abdominal GI/Abdominal exam: Present: normal bowel sounds, soft, tenderness (diffuse). Absent: distended Additional comments: multiple well healing, well approximated abdominal incisions. No erythema, pus, or drainage. - Extremities Exam Extremities exam: Present: pedal edema, warm. Absent: tenderness - Neurological Exam Neurological exam: Present: alert, oriented X3, no focal deficits. Absent: speech deficit - Psychiatric Psychiatric exam: Present: normal affect, normal mood - Skin Skin exam: Present: dry, warm. Absent: rash Additional comments: see abd exam Internal Medicine: Result - Labs CBC & Chem 7: 03/13/18 04:01 03/13/18 04:01 Labs: Liver Function 03/13/18 Range/Units 04:01 Total Bilirubin 1.9 H (0.3-1.0) mg/dL Direct Bilirubin 0.7 H (0.0-0.2) mg/dL - ABG Interpretation ABG results: PT/INR, D-dimer PT 14.7 Seconds (9.4-12.1) H 03/11/18 04:41 - VTE Documentation of Mechanical Device: Intermittent pneumatic compression device Consult Discharge Plan - Plan Referrals: Robert Martinez MD [Primary Care Provider] - <Magdaleno Cage - Last Filed: 03/14/18 12:08> Date of Encounter: 03/14/18 - Assessment and plan (1) COPD (chronic obstructive pulmonary disease) Current Visit: Yes Status: Chronic Qualifiers: COPD type: chronic bronchitis Qualified Code(s): J41.0 - Simple chronic bronchitis (2) A-fib Current Visit: Yes Status: Chronic Qualifiers: Atrial fibrillation type: chronic Qualified Code(s): I48.2 - Chronic atrial fibrillation (3) Hyperlipidemia Current Visit: Yes Status: Chronic Qualifiers: Hyperlipidemia type: mixed hyperlipidemia Qualified Code(s): E78.2 - Mixed hyperlipidemia (4) Cholecystitis Current Visit: Yes Status: Acute (5) Obstructive jaundice Current Visit: Yes Status: Acute - Time Spent With Patient Total time spent is greater than 50% in coordination of care (as documented) at patient's floor/unit and/or counseling patient: - Constitutional Vitals: Temp Pulse Resp BP Pulse Ox 97.8 F 80 14 115/75 94 03/14/18 07:03 03/14/18 07:03 03/14/18 07:03 03/14/18 07:03 03/14/18 07:03 Internal Medicine: Result - Labs CBC & Chem 7: 03/13/18 04:01 03/13/18 04:01 Labs: Liver Function 03/13/18 Range/Units 04:01 Total Bilirubin 1.9 H (0.3-1.0) mg/dL Direct Bilirubin 0.7 H (0.0-0.2) mg/dL - ABG Interpretation ABG results: PT/INR, D-dimer PT 14.7 Seconds (9.4-12.1) H 03/11/18 04:41 - Attending Attestation I examined this patient and my medical decision-making was reviewed with the Resident Physician Dr. Fam. I agree with the documented findings, disposition and treatment plan as described except to the extent set forth below. Mr. rodriguez is a 82 y/o M with known COPD, HTN, Chronic afib on Xarelto for anti coag, and GERD pt admitted for acute abdominal pain with cholecystitis. pt states he is feeling little better today. he did have Robotic Exploration of abdomen on 03/12/18, unable to identify gallbladder since it might be behind a wall of dense adhesions and bowel. Denied any CP / SOB. Abd pain also little better. Chest: DBS Heart: S1S2+ Abd: soft, mild discomfort RUQ a/p 1. Acute cholecystitis 2. Acute obstructive jaundice s/p Robotic Exploration of abdomen on 03/12/18, unable to identify gallbladder since it might be behind a wall of dense adhesions and bowel Lab work - P Cont IV abx Analgesics PRN Cont supportive and symptomatic care Held Xarelto Advance diet as surgery recommends HIDA scan - P
[2018-03-14] MEDS: Sucralfate 1 GM TABLET PO SCH ×3 (12:09→20:58)
[2018-03-14 13:09] LABS: Basophils # 0.1 K/mcL (0.0-0.2); Basophils % 0.6 %; Eosinophils # 0.1 K/mcL (0.0-0.6); Eosinophils % 0.6 %; Hematocrit 37.5 % (37.5-50.1); Hemoglobin 12.4 g/dL (12.9-16.9); Immature Granulocytes % 0.8 % (0-4); Lymphocytes # 2.6 K/mcL (0.6-4.6); Lymphocytes % 27.6 %; Mean Corpuscular HGB Conc 33.1 g/dL (31.6-35.5); Mean Corpuscular Volume 87.8 fL (83.0-100.0); Mean Platelet Volume 9.6 fL (9.4-12.4); Monocytes # 0.6 K/mcL (0.0-1.3); Monocytes % 6.7 %; Neutrophils # 5.9 K/mcL (1.6-8.9); Platelet Count 239 K/mcL (140-400); Red Blood Count 4.27 M/mcL (4.19-5.50); Red Cell Distribution Width 14.1 % (11.5-14.5); Segmented Neutrophils % 63.7 %
[2018-03-14 13:17] LABS: Alanine Aminotransferase 73 Units/L (7-52); Albumin 3.2 g/dL (3.5-5.7); Albumin/Globulin Ratio 1.3 (1.1-2.2); Alkaline Phosphatase 288 Units/L (34-104); Amylase 19 Units/L (29-103); Aspartate Amino Transferase 40 Units/L (13-39); BUN/Creatinine Ratio 15 (6-26); Bilirubin,Direct 0.7 mg/dL (0.0-0.2); Bilirubin,Total 1.7 mg/dL (0.3-1.0); Blood Urea Nitrogen 13 mg/dL (8-23); Calcium 8.6 mg/dL (8.6-10.3); Carbon Dioxide 28 mEq/L (23-29); Chloride 105 mEq/L (98-107); Globulin 2.4 g/dL (2.4-3.5); Glucose 107 mg/dL (70-105); Lipase 14 Units/L (11-82); Osmolality,Calculated 287 (280-300); Potassium 4.1 mEq/L (3.5-5.1); Sodium 138 mEq/L (136-145); Total Protein 5.6 g/dL (6.4-8.9); eGFR For African Americans > 60 (> 60); eGFR For Non-African Americans > 60 (> 60)
[2018-03-14] MEDS: Metoprolol XL (24 HR) Succ 25 MG TAB.ER.24H PO SCH (14:01)
[2018-03-15 05:55] LABS: Alanine Aminotransferase 65 Units/L (7-52); Albumin 2.9 g/dL (3.5-5.7); Albumin/Globulin Ratio 1.3 (1.1-2.2); Alkaline Phosphatase 248 Units/L (34-104); Aspartate Amino Transferase 36 Units/L (13-39); BUN/Creatinine Ratio 14 (6-26); Bilirubin,Total 1.7 mg/dL (0.3-1.0); Blood Urea Nitrogen 12 mg/dL (8-23); Calcium 8.3 mg/dL (8.6-10.3); Carbon Dioxide 26 mEq/L (23-29); Chloride 105 mEq/L (98-107); Globulin 2.3 g/dL (2.4-3.5); Glucose 112 mg/dL (70-105); Osmolality,Calculated 285 (280-300); Potassium 4.1 mEq/L (3.5-5.1); Sodium 137 mEq/L (136-145); Total Protein 5.2 g/dL (6.4-8.9); eGFR For African Americans > 60 (> 60); eGFR For Non-African Americans > 60 (> 60)
--- NOTE | 2018-03-15 08:16 | General Surgery Progress Note ---
<Kelsey Hassan Becky - Last Filed: 03/15/18 08:31> Date of Encounter: 03/15/18 Time of Encounter: 08:16 - Assessment and Plan (1) RUQ abdominal pain Current Visit: Yes Status: Acute Date of procedure: 03/12/18 Pre-op diagnosis: acute cholecystitis Post-op diagnosis: other (abdominal pain of unknown etiology) Procedure: robotic exploration of the abdomen, lysis of adhesions for 60min; POD#3 as above. Per the operative report, the gallbladder was not the visualized during the procedure. There was reported a thick wall of adhesions noted. And additionally the Venecia lasts ICG also lit up within the bowel that was also adhered to the right upper quadrant. Indicating one or 2 things: the patient was mistaken and had underwent a cholecystectomy or he has developed so much scar tissue that access to the gallbladder was not possible. HIDA scan 03/14/2018 noted normal GB with EF of 86%. No evidence of acute cholecystitis. Patient states his abdominal discomfort has continued to improve each day and states his discomfort only feels like soreness now. He denies nausea, vomiting , fever, chills, and states he tolerated his regular diet yesterday. LFTs are down trending total bilirubin is downtrending. Continue PPI therapy and Carafate May continue soft diet continue antibiotics (May transition to Augmentin at discharge for 10 days) follow-up with Dr. Huston in 2 weeks; reviewed with patient that should his symptoms return or persist a a cholecystostomy tube versus open cholecystectomy would be the likely course of treatment given his extensive scar tissue. Surgery will sign off at this time. Thank you for allowing us to participate in Kostas's care. Please call or reconsult for further questions. Subjective Patient reports: no new complaints, still having pain ("soreness from surgery") , pain is less, tolerating a regular diet, voiding w/o difficulty, flatus, bowel movement, afebrile Objective Vital Signs - Last 8 Hours Temp Pulse Resp BP Pulse Ox 03/15/18 07:06 97.5 F L 80 16 146/90 96 03/15/18 05:23 98.0 F 78 15 127/82 94 Intake and Output 03/14/18 03/15/18 03/15/18 23:59 07:59 15:59 Intake Total 200 / 200 100 / 100 Output Total 200 / 200 900 / 900 Balance 0 / 0 -800 / -800 Intake: IV Fluids 200 / 200 100 / 100 Zosyn 3.375 GM In 0.9 % Sodium 200 / 200 100 / 100 Chloride (Mini-Bag +) 100 ML @ 25 mls/hr IVPB Q8HR [facility] Rx#: [id number] Oral 0 / 0 0 / 0 Output: Urine 200 / 200 900 / 900 Other: Meal Dinner Percent of Meal Consumed 100% - General physical appearance well nourished, no distress - Eyes normal ocular movement - ENT atraumatic, normocephalic - Neck Neck exam: trachea midline - Respiratory normal expansion, normal respiratory effort, clear to auscultation - Cardiovascular Cardiovascular exam: Present: RRR - Abdomen Abdomen: Present: bowel sounds present, soft, tender (Expected postoperative tenderness) Hernia: none - Integumentary no growths - Neurologic normal coordination, normal sensation - Musculoskeletal normal posture - Psychiatric oriented to time, oriented to person, oriented to place, speech is normal, memory intact - Labs 03/14/18 12:40 03/15/18 05:10 Diabetes panel 03/14/18 03/15/18 Range/Units 12:40 05:10 Sodium 138 137 (136-145) mEq/L Potassium 4.1 4.1 (3.5-5.1) mEq/L Chloride 105 105 (98-107) mEq/L Carbon Dioxide 28 26 (23-29) mEq/L BUN 13 12 (8-23) mg/dL Creatinine 0.87 0.84 (0.70-1.30) mg/dL Glucose 107 H 112 H (70-105) mg/dL Calcium 8.6 8.3 L (8.6-10.3) mg/dL AST 40 H 36 (13-39) Units/L ALT 73 H 65 H (7-52) Units/L Alkaline Phosphatase 288 H 248 H (34-104) Units/L Albumin 3.2 L 2.9 L (3.5-5.7) g/dL Calcium panel 03/14/18 03/15/18 Range/Units 12:40 05:10 Calcium 8.6 8.3 L (8.6-10.3) mg/dL Albumin 3.2 L 2.9 L (3.5-5.7) g/dL Pituitary panel 03/14/18 03/15/18 Range/Units 12:40 05:10 Sodium 138 137 (136-145) mEq/L Potassium 4.1 4.1 (3.5-5.1) mEq/L Chloride 105 105 (98-107) mEq/L Carbon Dioxide 28 26 (23-29) mEq/L BUN 13 12 (8-23) mg/dL Creatinine 0.87 0.84 (0.70-1.30) mg/dL Glucose 107 H 112 H (70-105) mg/dL Calcium 8.6 8.3 L (8.6-10.3) mg/dL Adrenal panel 03/13/18 03/14/18 03/15/18 Range/Units 04:01 12:40 05:10 Sodium 138 137 (136-145) mEq/L Potassium 4.1 4.1 (3.5-5.1) mEq/L Chloride 105 105 (98-107) mEq/L Carbon Dioxide 28 26 (23-29) mEq/L BUN 13 12 (8-23) mg/dL Creatinine 0.87 0.84 (0.70-1.30) mg/dL Glucose 107 H 112 H (70-105) mg/dL Calcium 8.6 8.3 L (8.6-10.3) mg/dL Total Bilirubin 1.9 H 1.7 H 1.7 H (0.3-1.0) mg/dL AST 40 H 36 (13-39) Units/L ALT 73 H 65 H (7-52) Units/L Alkaline Phosphatase 288 H 248 H (34-104) Units/L Albumin 3.2 L 2.9 L (3.5-5.7) g/dL - VTE Documentation of Mechanical Device: Intermittent pneumatic compression device Consult Discharge Plan - Plan Referrals: Robert Martinez MD [Primary Care Provider] - Prescriptions: OxyCODONE/APAP 5/325 [Percocet 5/325 MG] 1 each PO Q4HR PRN 7 Days #28 tablet PRN Reason: Pain Amoxicillin/Clavulanate [Augmentin] 875 mg PO BIDWM #20 tablet Docusate [Colace] 100 mg PO BID #30 capsule Omeprazole [PriLOSEC] 40 mg PO BIDAC 30 Days #60 capsule. Ondansetron ODT [Zofran ODT] 4 mg PO Q4H PRN #30 tab.rapdis PRN Reason: Nausea Sucralfate [Carafate] 1 gm PO QIDAC 30 Days #120 tablet <Keith Hutson - Last Filed: 03/15/18 12:26> Date of Encounter: 03/15/18 - Assessment and Plan (1) Cholecystitis Current Visit: Yes Status: Acute Objective Vital Signs - Last 8 Hours Temp Pulse Resp BP Pulse Ox 03/15/18 10:45 97.9 F 63 16 126/78 95 03/15/18 07:06 97.5 F L 80 16 146/90 96 03/15/18 05:23 98.0 F 78 15 127/82 94 Intake and Output 03/14/18 03/15/18 03/15/18 23:59 07:59 15:59 Intake Total 200 / 200 100 / 100 Output Total 200 / 200 900 / 900 Balance 0 / 0 -800 / -800 Intake: IV Fluids 200 / 200 100 / 100 Zosyn 3.375 GM In 0.9 % Sodium 200 / 200 100 / 100 Chloride (Mini-Bag +) 100 ML @ 25 mls/hr IVPB Q8HR [facility] Rx#: [id number] Oral 0 / 0 0 / 0 Output: Urine 200 / 200 900 / 900 Other: Meal Dinner Percent of Meal Consumed 100% - Labs 03/14/18 12:40 03/15/18 05:10 Diabetes panel 03/14/18 03/15/18 Range/Units 12:40 05:10 Sodium 138 137 (136-145) mEq/L Potassium 4.1 4.1 (3.5-5.1) mEq/L Chloride 105 105 (98-107) mEq/L Carbon Dioxide 28 26 (23-29) mEq/L BUN 13 12 (8-23) mg/dL Creatinine 0.87 0.84 (0.70-1.30) mg/dL Glucose 107 H 112 H (70-105) mg/dL Calcium 8.6 8.3 L (8.6-10.3) mg/dL AST 40 H 36 (13-39) Units/L ALT 73 H 65 H (7-52) Units/L Alkaline Phosphatase 288 H 248 H (34-104) Units/L Albumin 3.2 L 2.9 L (3.5-5.7) g/dL Calcium panel 03/14/18 03/15/18 Range/Units 12:40 05:10 Calcium 8.6 8.3 L (8.6-10.3) mg/dL Albumin 3.2 L 2.9 L (3.5-5.7) g/dL Pituitary panel 03/14/18 03/15/18 Range/Units 12:40 05:10 Sodium 138 137 (136-145) mEq/L Potassium 4.1 4.1 (3.5-5.1) mEq/L Chloride 105 105 (98-107) mEq/L Carbon Dioxide 28 26 (23-29) mEq/L BUN 13 12 (8-23) mg/dL Creatinine 0.87 0.84 (0.70-1.30) mg/dL Glucose 107 H 112 H (70-105) mg/dL Calcium 8.6 8.3 L (8.6-10.3) mg/dL Adrenal panel 03/14/18 03/15/18 Range/Units 12:40 05:10 Sodium 138 137 (136-145) mEq/L Potassium 4.1 4.1 (3.5-5.1) mEq/L Chloride 105 105 (98-107) mEq/L Carbon Dioxide 28 26 (23-29) mEq/L BUN 13 12 (8-23) mg/dL Creatinine 0.87 0.84 (0.70-1.30) mg/dL Glucose 107 H 112 H (70-105) mg/dL Calcium 8.6 8.3 L (8.6-10.3) mg/dL Total Bilirubin 1.7 H 1.7 H (0.3-1.0) mg/dL AST 40 H 36 (13-39) Units/L ALT 73 H 65 H (7-52) Units/L Alkaline Phosphatase 288 H 248 H (34-104) Units/L Albumin 3.2 L 2.9 L (3.5-5.7) g/dL - Attending Attestation patient seen and examined. i have reviewed all labs, imaging, and notes including this one. I agree with the above assessment and plan and wish to add the following... Concern that part of patient's pain may be related to marginal ulcer; can investigate further with an EGD as an outpatient; currently reports less pain with PPI and carafate. continue these medications; diet as tolerated; if pain recurs, patient would like benefit from cholecystostomy tube vs open cholecystectomy; until that time, pain and medical management are essential. please see me in my clinic 2 weeks after discharge; will schdule for and EGD at that time. Thank you for the consultation; call with any new questions or concerns
[2018-03-15] MEDS: Sucralfate 1 GM TABLET PO SCH ×4 (08:46→20:42)
[2018-03-15] MEDS: Piperacillin/Tazobactam 3.375 GM in 0.9 % Sodium Chloride Mini Bag 100 ML IVPB SCH ×3 (08:47→23:39)
[2018-03-15] MEDS: Metoprolol XL (24 HR) Succ 25 MG TAB.ER.24H PO SCH (08:47)
--- NOTE | 2018-03-15 10:09 | Internal Med Progress Note ---
<[place] Fam - Last Filed: 03/15/18 13:22> Date of Encounter: 03/15/18 Time of Encounter: 09:15 - Assessment and plan (1) Obstructive jaundice Current Visit: Yes Status: Resolved Assessment and plan: Due to cholecystitis LFT's trending down (2) COPD (chronic obstructive pulmonary disease) Current Visit: Yes Status: Chronic Assessment and plan: Stable. When necessary albuterol as needed Qualifiers: COPD type: chronic bronchitis Chronic bronchitis type: unspecified Qualified Code(s): J42 - Unspecified chronic bronchitis (3) A-fib Current Visit: Yes Status: Chronic Assessment and plan: chronic AFib rate controlled xarelto was held for surgery, plan to restart tomorrow. Qualifiers: Atrial fibrillation type: chronic Qualified Code(s): I48.2 - Chronic atrial fibrillation (4) Hyperlipidemia Current Visit: Yes Status: Chronic Assessment and plan: cont statin Qualifiers: Hyperlipidemia type: mixed hyperlipidemia Qualified Code(s): E78.2 - Mixed hyperlipidemia (5) Cholelithiasis Current Visit: Yes Status: Acute Assessment and plan: admitted for obstructive jaundice likely secondary to cholelithiasis; stone likely dislodged as labs and clinically patient is improving. s/p Robotic Exploration of abdomen on 03/12/18, unable to identify gallbladder since it might be behind a wall of dense adhesions and bowel. HIDA scan identified GB with normal function. LFT's trending down Cont IV abx Analgesics PRN Cont supportive and symptomatic care Held Xarelto, plan to restart tomorrow. If patient improving cont to advance diet, possible discharge tomorrow. Qualifiers: Cholelithiasis location: gallbladder and bile duct Cholecystitis presence: without cholecystitis Biliary obstruction: with biliary obstruction Qualified Code(s): K80.71 - Calculus of gallbladder and bile duct without cholecystitis with obstruction - Time Spent With Patient Total time spent is greater than 50% in coordination of care (as documented) at patient's floor/unit and/or counseling patient: - Subjective Interval history: Patient seen and examined lying in bed, he notes abdominal pain with movement and with palpation but believes it is slightly better than yesterday; patient points to recent surgical incisions sights for areas of worst discomfort. Patient tolerating advancement of diet well. Notes he has not had a bowel movement in 2 days with limited intake. No acute distress. - Constitutional Vitals: Temp Pulse Resp BP Pulse Ox 97.5 F L 80 16 146/90 96 03/15/18 07:06 03/15/18 07:06 03/15/18 07:06 03/15/18 07:06 03/15/18 07:06 General appearance: Present: cooperative, A&O X 3, pleasant, no acute distress, answers questions appropriately - Head Head exam: Present: atraumatic, normal inspection, normocephalic - Eye Eye exam: Present: EOMI, normal appearance - ENT ENT exam: Present: mucous membranes moist - Neck Neck exam general surgery: Present: full ROM, normal inspection - Respiratory Respiratory exam: Present: decreased breath sounds, CTAB. Absent: respiratory distress, rhonchi, wheezes - Cardiovascular Cardiovascular exam: Present: RRR, +S1, +S2. Absent: gallop, rubs - GI/Abdominal GI/Abdominal exam: Present: normal bowel sounds, tenderness (moderate tenderness over incisional sites (difficult to assess previous RUQ pain).). Absent: firm, guarding - Extremities Exam Extremities exam: Present: normal inspection. Absent: pedal edema, tenderness - Incison Incision: Present: clean and dry, intact. Absent: draining, erythema - Neurological Exam Neurological exam: Present: alert, oriented X3, no focal deficits. Absent: speech deficit - Psychiatric Psychiatric exam: Present: normal affect, normal mood - Skin Skin exam: Present: intact, normal color, warm. Absent: cyanosis, rash Internal Medicine: Result - Labs CBC & Chem 7: 03/14/18 12:40 03/15/18 05:10 Labs: Short CBC 03/14/18 Range/Units 12:40 WBC 9.3 (4.3-11.1) K/mcL Hgb 12.4 L (12.9-16.9) g/dL Hct 37.5 (37.5-50.1) % Plt Count 239 (140-400) K/mcL Neutrophils # 5.9 (1.6-8.9) K/mcL BMP 03/14/18 03/15/18 12:40 05:10 Sodium 138 137 Potassium 4.1 4.1 Chloride 105 105 Carbon Dioxide 28 26 BUN 13 12 Creatinine 0.87 0.84 Glucose 107 H 112 H Calcium 8.6 8.3 L Liver Function 03/14/18 03/15/18 Range/Units 12:40 05:10 Total Bilirubin 1.7 H 1.7 H (0.3-1.0) mg/dL Direct Bilirubin 0.7 H (0.0-0.2) mg/dL AST 40 H 36 (13-39) Units/L ALT 73 H 65 H (7-52) Units/L Alkaline Phosphatase 288 H 248 H (34-104) Units/L Albumin 3.2 L 2.9 L (3.5-5.7) g/dL - ABG Interpretation ABG results: PT/INR, D-dimer PT 14.7 Seconds (9.4-12.1) H 03/11/18 04:41 - Impressions Impressions Liver Scan Nuclear Medicine 03/14/18 10:00 IMPRESSION: No convincing scintigraphic evidence of acute or chronic cholecystitis. D/ / Jomar Gee MD / Jomar Gee MD Interpreting Provider: Jomar Gee MD - VTE Documentation of Mechanical Device: Intermittent pneumatic compression device Consult Discharge Plan - Plan Referrals: Robert Martinez MD [Primary Care Provider] - Prescriptions: OxyCODONE/APAP 5/325 [Percocet 5/325 MG] 1 each PO Q4HR PRN 7 Days #28 tablet PRN Reason: Pain Amoxicillin/Clavulanate [Augmentin] 875 mg PO BIDWM #20 tablet Docusate [Colace] 100 mg PO BID #30 capsule Omeprazole [PriLOSEC] 40 mg PO BIDAC 30 Days #60 capsule. Ondansetron ODT [Zofran ODT] 4 mg PO Q4H PRN #30 tab.rapdis PRN Reason: Nausea Sucralfate [Carafate] 1 gm PO QIDAC 30 Days #120 tablet <Magdaleno Cage - Last Filed: 03/15/18 13:55> Date of Encounter: 03/15/18 - Assessment and plan (1) COPD (chronic obstructive pulmonary disease) Current Visit: Yes Status: Chronic Qualifiers: COPD type: chronic bronchitis Chronic bronchitis type: unspecified Qualified Code(s): J42 - Unspecified chronic bronchitis (2) A-fib Current Visit: Yes Status: Chronic Qualifiers: Atrial fibrillation type: chronic Qualified Code(s): I48.2 - Chronic atrial fibrillation (3) Hyperlipidemia Current Visit: Yes Status: Chronic Qualifiers: Hyperlipidemia type: mixed hyperlipidemia Qualified Code(s): E78.2 - Mixed hyperlipidemia (4) Obstructive jaundice Current Visit: Yes Status: Resolved (5) Cholelithiasis Current Visit: Yes Status: Acute Qualifiers: Cholelithiasis location: gallbladder and bile duct Cholecystitis presence: without cholecystitis Biliary obstruction: with biliary obstruction Qualified Code(s): K80.71 - Calculus of gallbladder and bile duct without cholecystitis with obstruction - Time Spent With Patient Total time spent is greater than 50% in coordination of care (as documented) at patient's floor/unit and/or counseling patient: - Constitutional Vitals: Temp Pulse Resp BP Pulse Ox 97.9 F 63 16 126/78 95 03/15/18 10:45 03/15/18 10:45 03/15/18 10:45 03/15/18 10:45 03/15/18 10:45 Internal Medicine: Result - Labs CBC & Chem 7: 03/14/18 12:40 03/15/18 05:10 Labs: BMP 03/15/18 05:10 Sodium 137 Potassium 4.1 Chloride 105 Carbon Dioxide 26 BUN 12 Creatinine 0.84 Glucose 112 H Calcium 8.3 L Liver Function 03/15/18 Range/Units 05:10 Total Bilirubin 1.7 H (0.3-1.0) mg/dL AST 36 (13-39) Units/L ALT 65 H (7-52) Units/L Alkaline Phosphatase 248 H (34-104) Units/L Albumin 2.9 L (3.5-5.7) g/dL - ABG Interpretation ABG results: PT/INR, D-dimer PT 14.7 Seconds (9.4-12.1) H 03/11/18 04:41 - Attending Attestation I examined this patient and my medical decision-making was reviewed with the Resident Physician Dr. Fam. I agree with the documented findings, disposition and treatment plan as described except to the extent set forth below. Mr. rodriguez is a 82 y/o M with known COPD, HTN, Chronic afib on Xarelto for anti coag, and GERD pt admitted for acute abdominal pain with cholecystitis. pt states he is feeling little better today. he did have Robotic Exploration of abdomen on 03/12/18, unable to identify gallbladder since it might be behind a wall of dense adhesions and bowel. Denied any CP / SOB. Abd pain also little better. Chest: DBS Heart: S1S2+ Abd: soft, mild discomfort RUQ a/p 1. Acute cholecystitis 2. Acute obstructive jaundice s/p Robotic Exploration of abdomen on 03/12/18, unable to identify gallbladder since it might be behind a wall of dense adhesions and bowel LFT's improving slowly Cont IV abx Analgesics PRN Cont supportive and symptomatic care Held Xarelto Advance diet as surgery recommends HIDA scan - showed no signs of cholecystitis
[2018-03-16 07:19] LABS: Alanine Aminotransferase 53 Units/L (7-52); Albumin/Globulin Ratio 1.3 (1.1-2.2); Alkaline Phosphatase 209 Units/L (34-104); Aspartate Amino Transferase 25 Units/L (13-39); BUN/Creatinine Ratio 15 (6-26); Bilirubin,Total 1.7 mg/dL (0.3-1.0); Blood Urea Nitrogen 11 mg/dL (8-23); Calcium 8.5 mg/dL (8.6-10.3); Carbon Dioxide 24 mEq/L (23-29); Chloride 106 mEq/L (98-107); Globulin 2.4 g/dL (2.4-3.5); Glucose 124 mg/dL (70-105); Osmolality,Calculated 287 (280-300); Sodium 138 mEq/L (136-145); Total Protein 5.4 g/dL (6.4-8.9); eGFR For African Americans > 60 (> 60); eGFR For Non-African Americans > 60 (> 60)
[2018-03-16] MEDS: Metoprolol XL (24 HR) Succ 25 MG TAB.ER.24H PO SCH (09:46)
[2018-03-16] MEDS: Sucralfate 1 GM TABLET PO SCH ×2 (09:46→11:28)
[2018-03-16] MEDS: Piperacillin/Tazobactam 3.375 GM in 0.9 % Sodium Chloride Mini Bag 100 ML IVPB SCH (09:46)
--- NOTE | 2018-03-16 09:54 | Discharge Summary ---
- NOTES TO OUTPATIENT PROVIDER Notes to Outpatient Provider: f/u with surgery Dr. Hutson in [address] Hutson office or go to nearest ER if abdominal pain, nausea / vomiting get worse Date of Encounter: 03/16/18 Time of Encounter: 09:00 - Discharge Diagnosis (1) Cholelithiasis Priority: Primary Status: Acute Qualifiers: Cholelithiasis location: gallbladder and bile duct Cholecystitis presence: without cholecystitis Biliary obstruction: with biliary obstruction Qualified Code(s): K80.71 - Calculus of gallbladder and bile duct without cholecystitis with obstruction (2) Obstructive jaundice Priority: Primary Status: Resolved (3) COPD (chronic obstructive pulmonary disease) Priority: Secondary Status: Chronic Qualifiers: COPD type: chronic bronchitis Chronic bronchitis type: unspecified Qualified Code(s): J42 - Unspecified chronic bronchitis (4) A-fib Priority: Secondary Status: Chronic Qualifiers: Atrial fibrillation type: chronic Qualified Code(s): I48.2 - Chronic atrial fibrillation (5) Hyperlipidemia Priority: Secondary Status: Chronic Qualifiers: Hyperlipidemia type: mixed hyperlipidemia Qualified Code(s): E78.2 - Mixed hyperlipidemia Hospital course: Mr. rodriguez is a 82 y/o M with known COPD, HTN, Chronic afib on Xarelto for anti coag, and GERD pt admitted for acute abdominal pain with cholecystitis. He did have Robotic Exploration of abdomen on 03/12/18, unable to identify gallbladder since it might be behind a wall of dense adhesions and bowel. His HIDA scan did not show any cholecystitis. At this point surgery recommend to advance his Diet. Pt has been tolerating diet well. Abd pain also little better. pt states he is feeling little better today. - Time Spent with Patient Total time spent providing and/or coordinating discharge services: - Discharge Medications Prescriptions: OxyCODONE/APAP 5/325 [Percocet 5/325 MG] 1 each PO Q4HR PRN 7 Days #28 tablet PRN Reason: Pain Amoxicillin/Clavulanate [Augmentin] 875 mg PO BIDWM #20 tablet Docusate [Colace] 100 mg PO BID #30 capsule Omeprazole [PriLOSEC] 40 mg PO BIDAC 30 Days #60 capsule. Ondansetron ODT [Zofran ODT] 4 mg PO Q4H PRN #30 tab.rapdis PRN Reason: Nausea Sucralfate [Carafate] 1 gm PO QIDAC 30 Days #120 tablet Home Medications: Atorvastatin [Lipitor] 20 mg PO HS 12/02/15 [History] Albuterol Sulfate [Proair Hfa] 2 puff IH Q4H PRN 11/09/17 [History] Metoprolol Succinate [Toprol Xl] 25 mg PO DAILY 11/09/17 [History] Ciclopirox Olamine [Ciclopirox] 1 appl TP BID PRN 11/24/17 [History] Furosemide [Lasix] 20 mg PO DAILY PRN 11/24/17 [History] Triamcinolone Acet 0.1% CRM [Kenalog] 1 appl TP BID PRN 11/24/17 [History] Rivaroxaban [Xarelto] 20 mg PO DAILY 03/10/18 [History] Amoxicillin/Clavulanate [Augmentin] 875 mg PO BIDWM #20 tablet 03/15/18 [Rx] Docusate [Colace] 100 mg PO BID #30 capsule 03/15/18 [Rx] Omeprazole [PriLOSEC] 40 mg PO BIDAC 30 Days #60 capsule. 03/15/18 [Rx] Ondansetron ODT [Zofran ODT] 4 mg PO Q4H PRN #30 tab.rapdis 03/15/18 [Rx] OxyCODONE/APAP 5/325 [Percocet 5/325 MG] 1 each PO Q4HR PRN 7 Days #28 tablet [Rx] Sucralfate [Carafate] 1 gm PO QIDAC 30 Days #120 tablet 03/15/18 [Rx] Allergies/Adverse Reactions: 3 Allergy/AdvReac Type Severity Reaction Status Date / Time codeine AdvReac Confusion Verified 03/10/18 18:04 brown cloth tape Allergy Rash Uncoded 03/10/18 18:04 Date of admission: 03/13/18 16:17 Primary care physician: Robert Martinez MD Consults: 03/15/18 13:40 Consult to Occupational Therapy [CONS] Routine Comment: Evaluate, develop and implement POC Reason for Consult: inactive s/p abd surgery and admits almost falling a few days ago. Please evaluate. Does patient have active BEDREST order?: No Is patient medically & hemodynamically stable?: Yes Patient assessed for mobility or mobilized this visit?: No Consult to Physical Therapy [CONS] Routine Comment: Evaluate, develop and implement POC Reason for Consult: inactive s/p abd surgery and admits almost falling a few days ago. Please evaluate. Does patient have active BEDREST order?: No Is patient medically & hemodynamically stable?: Yes Patient assessed for mobility or mobilized this visit?: No - Constitutional Vitals: Temp Pulse Resp BP Pulse Ox 98.3 F 73 16 150/86 95 03/16/18 06:46 03/16/18 06:46 03/16/18 06:46 03/16/18 06:46 03/16/18 06:46 General appearance: Present: cooperative, A&O X 3, pleasant, no acute distress, answers questions appropriately - Head Head exam: Present: atraumatic, normal inspection - Neck Neck exam general surgery: Present: supple - Respiratory Respiratory exam: Present: decreased breath sounds. Absent: rales, respiratory distress, rhonchi, wheezes - Cardiovascular Cardiovascular exam: Present: +S1, +S2. Absent: tachycardia - GI/Abdominal GI/Abdominal exam: Present: soft, tenderness (at surical incisions). Absent: rebound, rigid - Extremities Exam Extremities exam: Present: pedal edema (trace). Absent: calf tenderness, tenderness - Back Exam Back exam: Absent: CVA tenderness (L), CVA tenderness (R) - Neurological Exam Neurological exam: Present: alert, oriented X3 - Psychiatric Psychiatric exam: Present: normal affect, normal mood - Patient Status Disposition: Home Health Service Condition: Good - Discharge Instructions Follow Up With: Keith Hutson MD [Non-Partnered Physician] - 03/28/18 9:00 am - Diet and Activity Activity: increase activity as tolerated Diet: low salt diet - VTE Documentation of Mechanical Device: Intermittent pneumatic compression device
[2018-03-16 11:39] VITALS: BP 171/78
--- NOTE | 2018-03-16 13:07 | Physician Discharge Referral ---
Home Health/Hosp Referral Info Transfer to: Home Health Provider in Charge Post Discharge: PCP - Diagnosis (1) Cholelithiasis Status: Acute (2) Obstructive jaundice Status: Resolved (3) COPD (chronic obstructive pulmonary disease) Status: Chronic (4) A-fib Status: Chronic (5) Hyperlipidemia Status: Chronic - Respiratory Orders Smoking Cessation: Smoking cessation has been advised. For more information, call the [place] Tobacco Quit Line at 9-624-BXTJ-NOW. - Services Needed Following services are medically necessary services: Nursing, Physical Therapy, Occupational Therapy - Transfer Medications Prescriptions: OxyCODONE/APAP 5/325 [Percocet 5/325 MG] 1 each PO Q4HR PRN 7 Days #28 tablet PRN Reason: Pain Amoxicillin/Clavulanate [Augmentin] 875 mg PO BIDWM #20 tablet Docusate [Colace] 100 mg PO BID #30 capsule Omeprazole [PriLOSEC] 40 mg PO BIDAC 30 Days #60 capsule. Ondansetron ODT [Zofran ODT] 4 mg PO Q4H PRN #30 tab.rapdis PRN Reason: Nausea Sucralfate [Carafate] 1 gm PO QIDAC 30 Days #120 tablet Home Medications: Atorvastatin [Lipitor] 20 mg PO HS 12/02/15 [History] Albuterol Sulfate [Proair Hfa] 2 puff IH Q4H PRN 11/09/17 [History] Metoprolol Succinate [Toprol Xl] 25 mg PO DAILY 11/09/17 [History] Ciclopirox Olamine [Ciclopirox] 1 appl TP BID PRN 11/24/17 [History] Furosemide [Lasix] 20 mg PO DAILY PRN 11/24/17 [History] Triamcinolone Acet 0.1% CRM [Kenalog] 1 appl TP BID PRN 11/24/17 [History] Rivaroxaban [Xarelto] 20 mg PO DAILY 03/10/18 [History] Amoxicillin/Clavulanate [Augmentin] 875 mg PO BIDWM #20 tablet 03/15/18 [Rx] Docusate [Colace] 100 mg PO BID #30 capsule 03/15/18 [Rx] Omeprazole [PriLOSEC] 40 mg PO BIDAC 30 Days #60 capsule. 03/15/18 [Rx] Ondansetron ODT [Zofran ODT] 4 mg PO Q4H PRN #30 tab.rapdis 03/15/18 [Rx] OxyCODONE/APAP 5/325 [Percocet 5/325 MG] 1 each PO Q4HR PRN 7 Days #28 tablet [Rx] Sucralfate [Carafate] 1 gm PO QIDAC 30 Days #120 tablet 03/15/18 [Rx] Allergies/Adverse Reactions: 3 Allergy/AdvReac Type Severity Reaction Status Date / Time codeine AdvReac Confusion Verified 03/10/18 18:04 brown cloth tape Allergy Rash Uncoded 03/10/18 18:04 Certification: Further, I certify that my clinical findings support that this patient is homebound (i.e. absences from home require considerable and taxing effort and are for medical reasons or [employer] services or infrequently or short duration when for other reasons) because: Homebound Reason: Patient requires assistance of a person or device to safely leave home Attestation: My signature below is to certify that this patient is under my care and that I, or nurse practitioner, or a physician's nurse practitioner physician assistant working with me, has a face-to -face encounter with this patient.
== END 2018-03-16 14:29 | disposition home health service (06) | DRG 425 ==
LOC: 3ANU 11:03 → EMEROO 11:03 → OBSVTOIN 18:24 → 3ANU 18:24 → SUATTDRO 19:36 → 3ANU 20:07
PROVIDERS: ADMIT Internal Medicine Hematology & Oncology; ATTEND Internal Medicine Hematology & Oncology

== ENCOUNTER 2021-02-17 18:43 | Observation (INO) ==
[2021-02-17] MEDS ORDERED: 0.9 % Sodium Chloride 1,000 ML IVC ONE ×2 (19:07→23:02)
[2021-02-17] MEDS ORDERED: Isovue-370 500 ML BOTTLE IVP ONE (19:09)
[2021-02-17] MEDS ORDERED: Piperacillin/Tazobactam 3.375 GM in Water for inj. (sterile) 20 ML IVP ONE (19:17)
[2021-02-17] MEDS ORDERED: Vancomycin 1,500 MG/265 ML IV.SOLN IVPB ONE (19:20)
[2021-02-17 19:28] LABS: Basophils % 2.3 %; Eosinophils % 1.7 %; Hematocrit 29.1 % (37.5-50.1); Hemoglobin 9.8 g/dL (12.9-16.9); Immature Granulocytes % 1.7 % (0-4); Lymphocytes # 0.4 K/mcL (0.6-4.6); Lymphocytes % 24.3 %; Mean Corpuscular HGB Conc 33.7 g/dL (31.6-35.5); Mean Corpuscular Hemoglobin 31.3 pg (28.0-33.3); Mean Platelet Volume 9.8 fL (9.4-12.4); Monocytes # 0.2 K/mcL (0.0-1.3); Platelet Count 115 K/mcL (140-400); Red Blood Count 3.13 M/mcL (4.19-5.50); Red Cell Distribution Width 16.8 % (11.5-14.5); White Blood Count 1.8 K/mcL (4.3-11.1)
[2021-02-17 19:37] LABS: INR 2.7; Prothrombin Time 30.1 Seconds (9.4-12.1)
[2021-02-17 19:51] LABS: Alanine Aminotransferase 11 Units/L (7-52); Albumin 3.3 g/dL (3.5-5.7); Albumin/Globulin Ratio 1.4 (1.1-2.2); Alkaline Phosphatase 104 Units/L (34-104); Aspartate Amino Transferase 19 Units/L (13-39); BUN/Creatinine Ratio 27 (6-26); Bilirubin,Direct 0.3 mg/dL (0.0-0.2); Bilirubin,Indirect 1.1 mg/dL (0.0-1.0); Bilirubin,Total 1.4 mg/dL (0.3-1.0); Blood Urea Nitrogen 25 mg/dL (8-23); Calcium 8.5 mg/dL (8.6-10.3); Carbon Dioxide 21 mEq/L (23-29); Chloride 103 mEq/L (98-107); Globulin 2.3 g/dL (2.4-3.5); Glucose 161 mg/dL (70-105); Lactate Dehydrogenase 356 Units/L (140-271); Lipase 8 Units/L (11-82); Osmolality,Calculated 286 (280-300); Potassium 4.6 mEq/L (3.5-5.1); Sodium 134 mEq/L (136-145); Total Protein 5.6 g/dL (6.4-8.9); Uric Acid 3.7 mg/dL (2.3-7.6); eGFR For African Americans > 60 (> 60); eGFR For Non-African Americans > 60 (> 60)
[2021-02-17 19:59] LABS: Troponin I < 0.03 ng/mL (< 0.04)
[2021-02-17 20:00] LABS: Platelet Estimate Decreased (Normal)
[2021-02-17 20:49] LABS: Bacteria,Urine Few per hpf (None-Few); Bilirubin,Urine Negative (Negative); Blood,Urine Trace (Negative); Clarity,Urine Turbid (Clear); Color,Urine Yellow (Yellow); Glucose,Urine (UA) Normal (Normal); Ketones,Urine Negative (Negative); Leukocyte Esterase,Urine Large (Negative); Mucus,Urine Few per lpf (None-Few); Nitrite,Urine Negative (Negative); PH,Urine 5.5 pH Units (5.0-8.0); Protein,Urine Trace mg/dL (Neg-Trace); RBC,Urine 0-3 per hpf (0-3); Specific Gravity,Urine 1.021 (1.010-1.025); Squamous Epithelial Cell,Urine Few per hpf (None-Few); WBC,Urine 50-100 per hpf (0-3)
[2021-02-18] MEDS ORDERED: Ondansetron 4 MG/2 ML VIAL IVP PRN (00:07)
[2021-02-18] MEDS ORDERED: Naloxone 0.4 MG/ML INJ IVP PRN (00:07)
[2021-02-18] MEDS ORDERED: Acetaminophen 325 MG TABLET PO PRN (00:07)
[2021-02-18] MEDS: 0.9 % Sodium Chloride 1,000 ML IVC SCH ×2 (01:24→13:58)
[2021-02-18 06:40] LABS: Eosinophils % 2.5 %; Immature Granulocytes % 0.6 % (0-4); Mean Platelet Volume 9.7 fL (9.4-12.4)
[2021-02-18 06:42] LABS: Basophils % 1.8 %; Hematocrit 25.8 % (37.5-50.1); Hemoglobin 8.3 g/dL (12.9-16.9); Immature Platelets 2.2 % (1.1-6.1); Lymphocytes # 0.5 K/mcL (0.6-4.6); Lymphocytes % 30.1 %; Mean Corpuscular HGB Conc 32.2 g/dL (31.6-35.5); Mean Corpuscular Volume 96.3 fL (83.0-100.0); Monocytes # 0.2 K/mcL (0.0-1.3); Monocytes % 9.8 %; Neutrophils # 0.9 K/mcL (1.6-8.9); Platelet Count 103 K/mcL (140-400); Red Blood Count 2.68 M/mcL (4.19-5.50); Segmented Neutrophils % 55.2 %; White Blood Count 1.6 K/mcL (4.3-11.1)
[2021-02-18 06:50] LABS: INR 1.6; Prothrombin Time 18.8 Seconds (9.4-12.1)
[2021-02-18 06:58] LABS: BUN/Creatinine Ratio 21 (6-26); Blood Urea Nitrogen 22 mg/dL (8-23); Carbon Dioxide 25 mEq/L (23-29); Chloride 109 mEq/L (98-107); Glucose 111 mg/dL (70-105); Osmolality,Calculated 294 (280-300); Sodium 140 mEq/L (136-145); eGFR For African Americans > 60 (> 60); eGFR For Non-African Americans > 60 (> 60)
[2021-02-18 07:20] LABS: Platelet Estimate Slight Decrease (Normal)
[2021-02-18] MEDS: Piperacillin/Tazobactam 3.375 GM in 0.9 % Sodium Chloride Mini Bag 100 ML IVPB SCH ×3 (07:51→23:58)
[2021-02-18] MEDS: Vancomycin 1,250 MG/262.5 ML IV.SOLN IVPB SCH (07:59)
[2021-02-18] MEDS ORDERED: Furosemide 20 MG TABLET PO PRN (12:04)
[2021-02-18] MEDS: *HR* Rivaroxaban 10 MG TABLET PO SCH (14:36)
[2021-02-18] MEDS ORDERED: Oxymetazoline Nasal SPRAY BOTTLE NS ONE (15:33)
[2021-02-18 16:20] LABS: Adenovirus Not Detected (Not Detect); Bordetella Pertussis Not Detected (Not Detect); Chlamydophila pneumoniae Not Detected (Not Detect); Coronavirus 229E Not Detected (Not Detect); Coronavirus HKU1 Not Detected (Not Detect); Coronavirus NL63 Not Detected (Not Detect); Coronavirus OC43 Not Detected (Not Detect); Human Metapneumovirus Not Detected (Not Detect); Human Rhinovirus/Enterovirus Not Detected (Not Detect); Influenza A Subtype 2009 H1 Not Detected (Not Detect); Influenza B Not Detected (Not Detect); Mycoplasma pneumoniae Not Detected (Not Detect); Parainfluenza Virus 1 Not Detected (Not Detect); Parainfluenza Virus 2 Not Detected (Not Detect); Parainfluenza Virus 3 Not Detected (Not Detect); Parainfluenza Virus 4 Not Detected (Not Detect); Respiratory Syncytial Virus Not Detected (Not Detect); SARS-CoV-2 Not Detected (Not Detect)
[2021-02-18] MEDS: *HR* Ticagrelor 90 MG TABLET PO SCH (20:09)
[2021-02-18] MEDS ORDERED: Simethicone 80 MG TAB.CHEW PO PRN (20:47)
[2021-02-19 08:04] LABS: Immature Granulocytes % 1.1 % (0-4)
[2021-02-19 08:06] LABS: Basophils # 0.1 K/mcL (0.0-0.2); Basophils % 2.9 %; Eosinophils # 0.1 K/mcL (0.0-0.6); Eosinophils % 2.9 %; Hematocrit 26.8 % (37.5-50.1); Hemoglobin 8.6 g/dL (12.9-16.9); Lymphocytes # 0.5 K/mcL (0.6-4.6); Mean Corpuscular HGB Conc 32.1 g/dL (31.6-35.5); Mean Corpuscular Hemoglobin 30.8 pg (28.0-33.3); Mean Corpuscular Volume 96.1 fL (83.0-100.0); Mean Platelet Volume 9.9 fL (9.4-12.4); Monocytes # 0.2 K/mcL (0.0-1.3); Monocytes % 10.3 %; Nucleated Red Blood Cells 1.1 /100 WBC (0); Platelet Count 114 K/mcL (140-400); Red Blood Count 2.79 M/mcL (4.19-5.50); Red Cell Distribution Width 17.2 % (11.5-14.5); Segmented Neutrophils % 54.8 %; White Blood Count 1.8 K/mcL (4.3-11.1)
[2021-02-19 08:08] LABS: Platelet Estimate Slight Decrease (Normal); Reactive Lymphocytes Present (Not Present)
[2021-02-19 08:32] LABS: BUN/Creatinine Ratio 26 (6-26); Blood Urea Nitrogen 21 mg/dL (8-23); Calcium 8.3 mg/dL (8.6-10.3); Carbon Dioxide 24 mEq/L (23-29); Chloride 111 mEq/L (98-107); Glucose 135 mg/dL (70-105); Osmolality,Calculated 297 (280-300); Potassium 4.1 mEq/L (3.5-5.1); Sodium 141 mEq/L (136-145); eGFR For African Americans > 60 (> 60); eGFR For Non-African Americans > 60 (> 60)
[2021-02-19] MEDS ORDERED: Cholecalciferol (D-3) 1,000 UNIT (25MCG) TABLET PO SCH (09:00)
[2021-02-19] MEDS ORDERED: Metoprolol XL (24 HR) Succ 50 MG TAB.ER.24H PO SCH (09:00)
[2021-02-19] MEDS ORDERED: lisinopriL 20 MG TABLET PO SCH (09:00)
[2021-02-19] MEDS ORDERED: allopurinoL 300 MG TABLET PO SCH (09:00)
[2021-02-19] MEDS: *HR* Ticagrelor 90 MG TABLET PO SCH (09:26)
[2021-02-19] MEDS: *HR* Rivaroxaban 10 MG TABLET PO SCH (09:27)
[2021-02-19] MEDS: Vancomycin 1,250 MG/262.5 ML IV.SOLN IVPB SCH (09:27)
[2021-02-19] MEDS: Piperacillin/Tazobactam 3.375 GM in 0.9 % Sodium Chloride Mini Bag 100 ML IVPB SCH (09:28)
[2021-02-19] MEDS ORDERED: Vancomycin 1,500 MG/265 ML IV.SOLN IVPB SCH (10:00)
[2021-02-19 11:11] LABS: Hematocrit 27.3 % (37.5-50.1)
[2021-02-19] MEDS ORDERED: cefTRIAXone 1,000 MG in Water for inj. (sterile) 10 ML IVPB ONE (16:00)
[2021-02-19 17:38] LABS: Hematocrit 26.5 % (37.5-50.1); Hemoglobin 8.7 g/dL (12.9-16.9)
[2021-02-19 19:55] VITALS: BP 111/69
[2021-02-20] MEDS ORDERED: cefTRIAXone 1,000 MG in Water for inj. (sterile) 10 ML IVPB ONE (09:00)
== END 2021-02-19 20:05 | disposition home or self-care (01) ==
LOC: 3ANU 18:43 → EMEROOARM 18:43 → SUATTDRO 23:10 → 3ANU 23:47
PROVIDERS: ADMIT Student in an Organized Health Care Education/Training Program; ATTEND Internal Medicine

== ENCOUNTER 2021-12-08 13:26 | Inpatient (IN) ==
[2021-12-08 14:32] LABS: Basophils % 0.1 %; Hematocrit 34.2 % (37.5-50.1); Hemoglobin 11.3 g/dL (12.9-16.9); Immature Granulocytes % 0.8 % (0-4); Lymphocytes # 0.9 K/mcL (0.6-4.6); Lymphocytes % 5.3 %; Mean Corpuscular Hemoglobin 26.7 pg (28.0-33.3); Mean Corpuscular Volume 80.7 fL (83.0-100.0); Monocytes % 5.8 %; Neutrophils # 15.2 K/mcL (1.6-8.9); Platelet Count 198 K/mcL (140-400); Red Blood Count 4.24 M/mcL (4.19-5.50); Red Cell Distribution Width 18.6 % (11.5-14.5); White Blood Count 17.3 K/mcL (4.3-11.1)
[2021-12-08 14:44] LABS: Calcium 8.3 mg/dL (8.6-10.3); Potassium 4.1 mEq/L (3.5-5.1)
[2021-12-08] MEDS ORDERED: Azithromycin 500 MG in 0.9 % Sodium Chloride 250 ML IVPB ONE (16:21)
[2021-12-08] MEDS ORDERED: Albuterol 2.5 MG/3 ML NEBULIZER IH ONE (16:21)
[2021-12-08] MEDS ORDERED: Ipratropium/Albuterol Neb 3 ML IH ONE (16:21)
[2021-12-08] MEDS ORDERED: 0.9 % Sodium Chloride 1,000 ML IVC ONE (16:21)
[2021-12-08 16:36] LABS: Bacteria,Urine Few per hpf (None-Few); Bilirubin,Urine Moderate (Negative); Blood,Urine Small (Negative); Calcium Oxalate Crystals,Urine Present per hpf; Clarity,Urine Turbid (Clear); Color,Urine Dark-Yellow (Yellow); Glucose,Urine (UA) Normal (Normal); Hyaline Casts,Urine Few per lpf (None Seen); Ketones,Urine Negative (Negative); Leukocyte Esterase,Urine Negative (Negative); Mucus,Urine Few per lpf (None-Few); Nitrite,Urine Negative (Negative); PH,Urine 5.5 pH Units (5.0-8.0); Protein,Urine 30 mg/dL (Neg-Trace); Squamous Epithelial Cell,Urine Few per hpf (None-Few); Urobilinogen,Urine >=8.0 mg/dL (Normal)
[2021-12-08] MEDS ORDERED: cefTRIAXone 1,000 MG in Water for inj. (sterile) 10 ML IVP ONE (16:44)
[2021-12-08 17:56] LABS: Influenza A PCR Negative (Negative); Influenza B PCR Negative (Negative); Resp. Syncytial Virus PCR Negative (Negative)
[2021-12-08 18:11] LABS: SARS-CoV-2 by PCR (In House) Positive (Negative)
[2021-12-08] MEDS ORDERED: Naloxone 0.4 MG/ML INJ IVP PRN (18:23)
[2021-12-08] MEDS ORDERED: Ondansetron 4 MG/2 ML VIAL IVP PRN (18:23)
[2021-12-08] MEDS ORDERED: Acetaminophen 325 MG TABLET PO PRN (18:23)
[2021-12-08] MEDS: *HR* Ticagrelor 90 MG TABLET PO SCH (19:58)
[2021-12-08] MEDS: Ipratropium 1 PUFF INHALER IH SCH (20:38)
[2021-12-09] MEDS: Cefepime HCl 1,000 MG in 0.9 % Sodium Chloride 10 ML IVP SCH ×3 (00:31→15:16)
[2021-12-09 01:31] LABS: Basophils % 0.3 %; Hematocrit 31.4 % (37.5-50.1); Hemoglobin 10.5 g/dL (12.9-16.9); Immature Granulocytes % 0.7 % (0-4); Lymphocytes # 0.4 K/mcL (0.6-4.6); Lymphocytes % 3.3 %; Mean Corpuscular HGB Conc 33.4 g/dL (31.6-35.5); Mean Corpuscular Hemoglobin 27.2 pg (28.0-33.3); Mean Corpuscular Volume 81.3 fL (83.0-100.0); Mean Platelet Volume 10.4 fL (9.4-12.4); Monocytes # 0.4 K/mcL (0.0-1.3); Monocytes % 3.2 %; Neutrophils # 10.6 K/mcL (1.6-8.9); Platelet Count 153 K/mcL (140-400); Red Blood Count 3.86 M/mcL (4.19-5.50); Red Cell Distribution Width 18.4 % (11.5-14.5); Segmented Neutrophils % 92.5 %; White Blood Count 11.4 K/mcL (4.3-11.1)
[2021-12-09 01:48] LABS: BUN/Creatinine Ratio 17 (6-26); Blood Urea Nitrogen 22 mg/dL (8-23); Calcium 8.7 mg/dL (8.6-10.3); Carbon Dioxide 27 mEq/L (23-29); Chloride 100 mEq/L (98-107); Glucose 192 mg/dL (70-105); Magnesium 2.2 mg/dL (1.6-2.6); Osmolality,Calculated 291 (280-300); Potassium 3.7 mEq/L (3.5-5.1); Sodium 136 mEq/L (136-145); eGFR For African Americans > 60 (> 60); eGFR For Non-African Americans 54 (> 60)
[2021-12-09] MEDS: Ipratropium 1 PUFF INHALER IH SCH ×4 (03:40→20:02)
[2021-12-09] MEDS ORDERED: VENETOCLAX 200 MG PO SCH (08:00)
[2021-12-09] MEDS: Cholecalciferol (D-3) 1,000 UNIT (25MCG) TABLET PO SCH (08:49)
[2021-12-09] MEDS: Metoprolol XL (24 HR) Succ 50 MG TAB.ER.24H PO SCH (08:49)
[2021-12-09] MEDS: *HR* Ticagrelor 90 MG TABLET PO SCH ×2 (08:49→21:51)
[2021-12-09] MEDS ORDERED: *HR* Rivaroxaban 10 MG TABLET PO SCH (09:00)
[2021-12-09] MEDS: VENETOCLAX 200 MG PO SCH (15:15)
[2021-12-09] MEDS: Doxycycline 100 MG in 0.9 % Sodium Chloride Mini Bag 100 ML IVPB SCH (17:39)
[2021-12-10] MEDS: Cefepime HCl 1,000 MG in 0.9 % Sodium Chloride 10 ML IVP SCH ×4 (00:16→23:53)
[2021-12-10 05:15] LABS: Basophils % 0.2 %; Hematocrit 32.1 % (37.5-50.1); Hemoglobin 10.7 g/dL (12.9-16.9); Immature Granulocytes % 0.7 % (0-4); Lymphocytes # 0.4 K/mcL (0.6-4.6); Mean Corpuscular HGB Conc 33.3 g/dL (31.6-35.5); Mean Corpuscular Hemoglobin 27.2 pg (28.0-33.3); Mean Corpuscular Volume 81.5 fL (83.0-100.0); Mean Platelet Volume 10.3 fL (9.4-12.4); Monocytes # 0.5 K/mcL (0.0-1.3); Monocytes % 6.1 %; Neutrophils # 7.9 K/mcL (1.6-8.9); Platelet Count 161 K/mcL (140-400); Red Blood Count 3.94 M/mcL (4.19-5.50); Red Cell Distribution Width 18.4 % (11.5-14.5); White Blood Count 8.9 K/mcL (4.3-11.1)
[2021-12-10] MEDS: Doxycycline 100 MG in 0.9 % Sodium Chloride Mini Bag 100 ML IVPB SCH ×2 (05:26→15:53)
[2021-12-10 05:58] LABS: BUN/Creatinine Ratio 21 (6-26); Blood Urea Nitrogen 17 mg/dL (8-23); Calcium 8.5 mg/dL (8.6-10.3); Carbon Dioxide 25 mEq/L (23-29); Chloride 101 mEq/L (98-107); Glucose 123 mg/dL (70-105); Osmolality,Calculated 281 (280-300); Sodium 134 mEq/L (136-145); eGFR For African Americans > 60 (> 60); eGFR For Non-African Americans > 60 (> 60)
[2021-12-10 07:35] LABS: Alanine Aminotransferase 40 Units/L (7-52); Albumin 3.1 g/dL (3.5-5.7); Albumin/Globulin Ratio 1.3 (1.1-2.2); Alkaline Phosphatase 354 Units/L (34-104); Aspartate Amino Transferase 35 Units/L (13-39); Bilirubin,Direct 0.7 mg/dL (0.0-0.2); Bilirubin,Total 1.7 mg/dL (0.3-1.0); Globulin 2.3 g/dL (2.4-3.5); Total Protein 5.4 g/dL (6.4-8.9)
[2021-12-10] MEDS: Ipratropium 1 PUFF INHALER IH SCH ×4 (07:49→20:10)
[2021-12-10 08:31] LABS: C-Reactive Protein 77 mg/L (Less than 10)
[2021-12-10] MEDS: Metoprolol XL (24 HR) Succ 50 MG TAB.ER.24H PO SCH (09:30)
[2021-12-10] MEDS: *HR* Ticagrelor 90 MG TABLET PO SCH ×2 (09:30→21:23)
[2021-12-10] MEDS: Cholecalciferol (D-3) 1,000 UNIT (25MCG) TABLET PO SCH (09:30)
[2021-12-10] MEDS: VENETOCLAX 200 MG PO SCH (15:57)
[2021-12-11] MEDS: Ipratropium 1 PUFF INHALER IH SCH ×4 (04:22→20:48)
[2021-12-11] MEDS: Doxycycline 100 MG in 0.9 % Sodium Chloride Mini Bag 100 ML IVPB SCH ×2 (06:02→17:28)
[2021-12-11 07:30] LABS: Basophils % 0.4 %; Hematocrit 30.5 % (37.5-50.1); Hemoglobin 10.1 g/dL (12.9-16.9); Immature Granulocytes % 0.7 % (0-4); Lymphocytes # 0.4 K/mcL (0.6-4.6); Lymphocytes % 5.6 %; Mean Corpuscular HGB Conc 33.1 g/dL (31.6-35.5); Mean Corpuscular Hemoglobin 26.9 pg (28.0-33.3); Mean Corpuscular Volume 81.1 fL (83.0-100.0); Mean Platelet Volume 10.1 fL (9.4-12.4); Monocytes # 0.6 K/mcL (0.0-1.3); Monocytes % 8.9 %; Neutrophils # 5.9 K/mcL (1.6-8.9); Platelet Count 126 K/mcL (140-400); Red Blood Count 3.76 M/mcL (4.19-5.50); Red Cell Distribution Width 18.1 % (11.5-14.5); Segmented Neutrophils % 84.4 %; White Blood Count 6.9 K/mcL (4.3-11.1)
[2021-12-11 08:15] LABS: BUN/Creatinine Ratio 18 (6-26); Blood Urea Nitrogen 13 mg/dL (8-23); Calcium 8.2 mg/dL (8.6-10.3); Carbon Dioxide 25 mEq/L (23-29); Chloride 100 mEq/L (98-107); Glucose 128 mg/dL (70-105); Osmolality,Calculated 278 (280-300); Potassium 3.7 mEq/L (3.5-5.1); Sodium 133 mEq/L (136-145); eGFR For African Americans > 60 (> 60); eGFR For Non-African Americans > 60 (> 60)
[2021-12-11] MEDS: Cefepime HCl 1,000 MG in 0.9 % Sodium Chloride 10 ML IVP SCH ×2 (09:06→15:53)
[2021-12-11] MEDS: *HR* Ticagrelor 90 MG TABLET PO SCH ×2 (09:10→22:01)
[2021-12-11] MEDS: Metoprolol XL (24 HR) Succ 50 MG TAB.ER.24H PO SCH (09:10)
[2021-12-11] MEDS: Cholecalciferol (D-3) 1,000 UNIT (25MCG) TABLET PO SCH (09:10)
[2021-12-11] MEDS: VENETOCLAX 200 MG PO SCH (17:36)
[2021-12-11] MEDS: Melatonin 3 MG TABLET PO SCH (22:01)
[2021-12-12] MEDS: Cefepime HCl 1,000 MG in 0.9 % Sodium Chloride 10 ML IVP SCH ×4 (00:45→23:25)
[2021-12-12 01:45] LABS: Basophils % 0.5 %; Hematocrit 30.3 % (37.5-50.1); Immature Granulocytes % 1.2 % (0-4); Lymphocytes # 0.5 K/mcL (0.6-4.6); Lymphocytes % 5.4 %; Mean Corpuscular Hemoglobin 26.5 pg (28.0-33.3); Mean Corpuscular Volume 80.4 fL (83.0-100.0); Monocytes # 0.7 K/mcL (0.0-1.3); Neutrophils # 7.1 K/mcL (1.6-8.9); Platelet Count 124 K/mcL (140-400); Red Blood Count 3.77 M/mcL (4.19-5.50); Red Cell Distribution Width 18.1 % (11.5-14.5); Segmented Neutrophils % 84.9 %; White Blood Count 8.4 K/mcL (4.3-11.1)
[2021-12-12 02:00] LABS: BUN/Creatinine Ratio 18 (6-26); Blood Urea Nitrogen 12 mg/dL (8-23); Calcium 8.5 mg/dL (8.6-10.3); Carbon Dioxide 24 mEq/L (23-29); Chloride 102 mEq/L (98-107); Glucose 126 mg/dL (70-105); Osmolality,Calculated 279 (280-300); Potassium 3.9 mEq/L (3.5-5.1); Sodium 134 mEq/L (136-145); eGFR For African Americans > 60 (> 60); eGFR For Non-African Americans > 60 (> 60)
[2021-12-12] MEDS: Ipratropium 1 PUFF INHALER IH SCH ×4 (04:14→20:05)
[2021-12-12] MEDS: Doxycycline 100 MG in 0.9 % Sodium Chloride Mini Bag 100 ML IVPB SCH ×2 (05:06→16:28)
[2021-12-12] MEDS: Cholecalciferol (D-3) 1,000 UNIT (25MCG) TABLET PO SCH (08:58)
[2021-12-12] MEDS: *HR* Ticagrelor 90 MG TABLET PO SCH ×2 (08:58→20:57)
[2021-12-12] MEDS: Metoprolol XL (24 HR) Succ 50 MG TAB.ER.24H PO SCH (08:58)
[2021-12-12] MEDS: VENETOCLAX 200 MG PO SCH (16:33)
[2021-12-12] MEDS: polyethylene glycoL 3350 17 GM POWD.PACK PO SCH (18:24)
[2021-12-12] MEDS: Melatonin 3 MG TABLET PO SCH (20:57)
[2021-12-13] MEDS: Ipratropium 1 PUFF INHALER IH SCH ×2 (03:44→07:59)
[2021-12-13] MEDS: Doxycycline 100 MG in 0.9 % Sodium Chloride Mini Bag 100 ML IVPB SCH (06:19)
[2021-12-13] MEDS: Metoprolol XL (24 HR) Succ 50 MG TAB.ER.24H PO SCH (07:39)
[2021-12-13] MEDS: polyethylene glycoL 3350 17 GM POWD.PACK PO SCH (07:39)
[2021-12-13] MEDS: *HR* Ticagrelor 90 MG TABLET PO SCH (07:39)
[2021-12-13] MEDS: Cholecalciferol (D-3) 1,000 UNIT (25MCG) TABLET PO SCH (07:39)
[2021-12-13] MEDS: Cefepime HCl 1,000 MG in 0.9 % Sodium Chloride 10 ML IVP SCH (07:40)
[2021-12-13 10:28] VITALS: BP 113/70; PULSE 83; TEMP 98.3; O2SAT 94
== END 2021-12-13 13:53 | disposition home or self-care (01) | DRG 177 ==
LOC: EMEROOARM 13:26 → 3BNU 13:26 → SUATTDRO 17:47 → 3BNU 18:40
PROVIDERS: ADMIT Pharmacist; ATTEND Hospitalist

== ENCOUNTER 2022-02-08 11:39 | Observation (INO) ==
[2022-02-08] MEDS ORDERED: 0.9 % Sodium Chloride 500 ML IVC ONE (11:57)
[2022-02-08 12:30] LABS: Hemoglobin 10.7 g/dL (12.9-16.9); Nucleated Red Blood Cells 0.6 /100 WBC (0)
[2022-02-08 12:32] LABS: Alanine Aminotransferase 6 Units/L (7-52); Albumin 3.2 g/dL (3.5-5.7); Albumin/Globulin Ratio 1.5 (1.1-2.2); Alkaline Phosphatase 175 Units/L (34-104); Aspartate Amino Transferase 26 Units/L (13-39); BUN/Creatinine Ratio 16 (6-26); Basophils # 0.1 K/mcL (0.0-0.2); Basophils % 0.2 %; Bilirubin,Direct 0.7 mg/dL (0.0-0.2); Bilirubin,Indirect 1.7 mg/dL (0.0-1.0); Bilirubin,Total 2.4 mg/dL (0.3-1.0); Blood Urea Nitrogen 19 mg/dL (8-23); Calcium 9.2 mg/dL (8.6-10.3); Carbon Dioxide 27 mEq/L (23-29); Chloride 103 mEq/L (98-107); Creatine Kinase 12 Units/L (30-223); Globulin 2.2 g/dL (2.4-3.5); Glucose 133 mg/dL (70-105); Hematocrit 34.2 % (37.5-50.1); Immature Granulocytes % 1.2 % (0-4); Lipase 4 Units/L (11-82); Lymphocytes # 8.4 K/mcL (0.6-4.6); Lymphocytes % 24.6 %; Magnesium 1.9 mg/dL (1.6-2.6); Mean Corpuscular HGB Conc 31.3 g/dL (31.6-35.5); Mean Corpuscular Hemoglobin 29.4 pg (28.0-33.3); Monocytes # 21.8 K/mcL (0.0-1.3); Neutrophils # 3.4 K/mcL (1.6-8.9); Osmolality,Calculated 300 (280-300); Platelet Count 107 K/mcL (140-400); Potassium 3.8 mEq/L (3.5-5.1); Red Blood Count 3.64 M/mcL (4.19-5.50); Red Cell Distribution Width 21.3 % (11.5-14.5); Sodium 143 mEq/L (136-145); Total Protein 5.4 g/dL (6.4-8.9); Troponin I < 0.03 ng/mL (< 0.04); eGFR For African Americans > 60 (> 60); eGFR For Non-African Americans 59 (> 60)
[2022-02-08 12:36] LABS: White Blood Count 34.1 K/mcL (4.3-11.1)
[2022-02-08] MEDS ORDERED: Isovue-370 500 ML BOTTLE IVP ONE (12:37)
[2022-02-08] MEDS ORDERED: Piperacillin/Tazobactam 3.375 GM in 0.9 % Sodium Chloride Mini Bag 100 ML IVPB ONE (12:39)
[2022-02-08 12:58] LABS: Bilirubin,Urine Small (Negative); Blood,Urine Negative (Negative); Clarity,Urine Turbid (Clear); Color,Urine Yellow (Yellow); Glucose,Urine (UA) Normal (Normal); Hyaline Casts,Urine Moderate per lpf (None Seen); Ketones,Urine Trace mg/dL (Negative); Leukocyte Esterase,Urine Negative (Negative); Mucus,Urine Many per lpf (None-Few); Nitrite,Urine Negative (Negative); PH,Urine 5.5 pH Units (5.0-8.0); Protein,Urine 70 mg/dL (Neg-Trace); Specific Gravity,Urine 1.026 (1.010-1.025); Squamous Epithelial Cell,Urine Few per hpf (None-Few); Urobilinogen,Urine >=8.0 mg/dL (Normal)
[2022-02-08] MEDS ORDERED: 0.9 % Sodium Chloride 1,000 ML IVC ONE (13:15)
[2022-02-08 13:35] LABS: Platelet Estimate Slight Decrease (Normal); Reactive Lymphocytes Present (Not Present)
[2022-02-08 13:58] LABS: Influenza A PCR Negative (Negative); Influenza B PCR Negative (Negative); Resp. Syncytial Virus PCR Negative (Negative)
[2022-02-08] MEDS ORDERED: Acetaminophen 325 MG TABLET PO PRN (15:29)
[2022-02-08] MEDS ORDERED: Ondansetron 4 MG/2 ML VIAL IVP PRN (15:29)
[2022-02-08] MEDS ORDERED: Naloxone 0.4 MG/ML INJ IVP PRN (15:29)
[2022-02-08] MEDS ORDERED: Melatonin 3 MG TABLET PO PRN (15:29)
[2022-02-08] MEDS ORDERED: Ipratropium Neb 0.5 MG NEBULIZER IH PRN (15:58)
[2022-02-08] MEDS: predniSONE 20 MG TABLET PO SCH (16:32)
[2022-02-08] MEDS: *HR* Rivaroxaban 10 MG TABLET PO SCH (16:32)
[2022-02-08 17:09] LABS: SARS-CoV-2 by PCR (In House) Positive (Negative)
[2022-02-08] MEDS: Levalbuterol Neb 0.63 MG/3 ML IH SCH ×2 (18:13→22:46)
[2022-02-08] MEDS: *HR* Ticagrelor 90 MG TABLET PO SCH (20:56)
[2022-02-08] MEDS: Piperacillin/Tazobactam 3.375 GM in 0.9 % Sodium Chloride Mini Bag 100 ML IVPB SCH (20:56)
[2022-02-08] MEDS: Ipratropium 1 PUFF INHALER IH SCH (23:45)
[2022-02-09 00:43] LABS: Hematocrit 29.7 % (37.5-50.1); Hemoglobin 9.6 g/dL (12.9-16.9); Mean Corpuscular HGB Conc 32.3 g/dL (31.6-35.5); Mean Corpuscular Hemoglobin 30.2 pg (28.0-33.3); Mean Corpuscular Volume 93.4 fL (83.0-100.0); Nucleated Red Blood Cells 0.4 /100 WBC (0); Platelet Count 108 K/mcL (140-400); Red Blood Count 3.18 M/mcL (4.19-5.50); Red Cell Distribution Width 21.2 % (11.5-14.5)
[2022-02-09 00:49] LABS: White Blood Count 30.7 K/mcL (4.3-11.1)
[2022-02-09 01:00] LABS: Alanine Aminotransferase 6 Units/L (7-52); Albumin 2.9 g/dL (3.5-5.7); Albumin/Globulin Ratio 1.5 (1.1-2.2); Alkaline Phosphatase 150 Units/L (34-104); Aspartate Amino Transferase 22 Units/L (13-39); BUN/Creatinine Ratio 17 (6-26); Bilirubin,Total 1.7 mg/dL (0.3-1.0); Blood Urea Nitrogen 17 mg/dL (8-23); Calcium 8.6 mg/dL (8.6-10.3); Carbon Dioxide 27 mEq/L (23-29); Chloride 106 mEq/L (98-107); Glucose 155 mg/dL (70-105); Osmolality,Calculated 297 (280-300); Phosphorous 4.2 mg/dL (2.7-4.5); Potassium 4.2 mEq/L (3.5-5.1); Sodium 141 mEq/L (136-145); Total Protein 4.9 g/dL (6.4-8.9); eGFR For African Americans > 60 (> 60); eGFR For Non-African Americans > 60 (> 60)
[2022-02-09 01:46] LABS: Anisocytosis 2+ (Not Present); Hypochromasia Present (Not Present); Lymphocytes # 18.4 K/mcL (0.6-4.6); Monocytes # 1.2 K/mcL (0.0-1.3); Platelet Estimate Decreased (Normal); Smudge Cells Present (Not Present)
[2022-02-09 01:47] LABS: Polychromasia 1+ (Not Present)
[2022-02-09] MEDS: Ipratropium 1 PUFF INHALER IH SCH ×4 (03:44→21:52)
[2022-02-09] MEDS: Piperacillin/Tazobactam 3.375 GM in 0.9 % Sodium Chloride Mini Bag 100 ML IVPB SCH ×3 (05:41→23:23)
[2022-02-09] MEDS: Metoprolol XL (24 HR) Succ 50 MG TAB.ER.24H PO SCH (09:17)
[2022-02-09] MEDS: predniSONE 20 MG TABLET PO SCH (09:17)
[2022-02-09] MEDS: *HR* Ticagrelor 90 MG TABLET PO SCH ×2 (09:18→21:52)
[2022-02-09] MEDS: lisinopriL 20 MG TABLET PO SCH (09:18)
[2022-02-09] MEDS: Mirtazapine 15 MG TABLET PO SCH (09:18)
[2022-02-09] MEDS: *HR* Rivaroxaban 10 MG TABLET PO SCH (18:26)
[2022-02-10] MEDS: Ipratropium 1 PUFF INHALER IH SCH ×4 (03:56→22:09)
[2022-02-10 06:09] LABS: Mean Platelet Volume 9.9 fL (9.4-12.4); Nucleated Red Blood Cells 0.4 /100 WBC (0)
[2022-02-10 06:11] LABS: Hematocrit 29.7 % (37.5-50.1); Hemoglobin 9.4 g/dL (12.9-16.9); Immature Platelets 3.2 % (1.1-6.1); Mean Corpuscular HGB Conc 31.6 g/dL (31.6-35.5); Mean Corpuscular Hemoglobin 29.6 pg (28.0-33.3); Mean Corpuscular Volume 93.4 fL (83.0-100.0); Platelet Count 113 K/mcL (140-400); Red Blood Count 3.18 M/mcL (4.19-5.50); Red Cell Distribution Width 21.6 % (11.5-14.5)
[2022-02-10 06:53] LABS: Reactive Lymphocytes Present (Not Present); Smudge Cells Present (Not Present)
[2022-02-10 06:54] LABS: Anisocytosis 2+ (Not Present); Hypochromasia Present (Not Present); Platelet Estimate Slight Decrease (Normal)
[2022-02-10 06:58] LABS: Monocytes # 1.1 K/mcL (0.0-1.3); Neutrophils # 5.9 K/mcL (1.6-8.9)
[2022-02-10] MEDS: Piperacillin/Tazobactam 3.375 GM in 0.9 % Sodium Chloride Mini Bag 100 ML IVPB SCH ×3 (07:56→14:13)
[2022-02-10 08:03] LABS: Alanine Aminotransferase 5 Units/L (7-52); Albumin/Globulin Ratio 1.6 (1.1-2.2); Alkaline Phosphatase 133 Units/L (34-104); Aspartate Amino Transferase 22 Units/L (13-39); BUN/Creatinine Ratio 18 (6-26); Bilirubin,Total 1.3 mg/dL (0.3-1.0); Blood Urea Nitrogen 20 mg/dL (8-23); Calcium 8.5 mg/dL (8.6-10.3); Carbon Dioxide 27 mEq/L (23-29); Chloride 104 mEq/L (98-107); Globulin 1.9 g/dL (2.4-3.5); Glucose 113 mg/dL (70-105); Osmolality,Calculated 293 (280-300); Phosphorous 4.1 mg/dL (2.7-4.5); Potassium 3.5 mEq/L (3.5-5.1); Sodium 140 mEq/L (136-145); Total Protein 4.9 g/dL (6.4-8.9); eGFR For African Americans > 60 (> 60); eGFR For Non-African Americans > 60 (> 60)
[2022-02-10] MEDS: Metoprolol XL (24 HR) Succ 50 MG TAB.ER.24H PO SCH (09:23)
[2022-02-10] MEDS: lisinopriL 20 MG TABLET PO SCH (09:23)
[2022-02-10] MEDS: predniSONE 20 MG TABLET PO SCH (09:24)
[2022-02-10] MEDS: Mirtazapine 15 MG TABLET PO SCH (09:24)
[2022-02-10] MEDS: *HR* Ticagrelor 90 MG TABLET PO SCH ×2 (09:30→22:13)
[2022-02-10] MEDS: *HR* Rivaroxaban 10 MG TABLET PO SCH (17:26)
[2022-02-11] MEDS: Piperacillin/Tazobactam 3.375 GM in 0.9 % Sodium Chloride Mini Bag 100 ML IVPB SCH ×2 (01:21→05:46)
[2022-02-11 03:00] LABS: Nucleated Red Blood Cells 0.2 /100 WBC (0); Red Cell Distribution Width 21.9 % (11.5-14.5)
[2022-02-11 03:02] LABS: Basophils # 0.1 K/mcL (0.0-0.2); Basophils % 0.2 %; Hematocrit 27.9 % (37.5-50.1); Hemoglobin 8.9 g/dL (12.9-16.9); Immature Granulocytes % 1.6 % (0-4); Immature Platelets 4.3 % (1.1-6.1); Lymphocytes # 8.5 K/mcL (0.6-4.6); Mean Corpuscular HGB Conc 31.9 g/dL (31.6-35.5); Mean Corpuscular Hemoglobin 30.1 pg (28.0-33.3); Mean Corpuscular Volume 94.3 fL (83.0-100.0); Mean Platelet Volume 9.8 fL (9.4-12.4); Monocytes % 58.3 %; Neutrophils # 3.6 K/mcL (1.6-8.9); Red Blood Count 2.96 M/mcL (4.19-5.50); Segmented Neutrophils % 11.9 %
[2022-02-11 03:16] LABS: Monocytes # 17.7 K/mcL (0.0-1.3)
[2022-02-11 03:17] LABS: Platelet Count 99 K/mcL (140-400)
[2022-02-11 03:18] LABS: White Blood Count 30.3 K/mcL (4.3-11.1)
[2022-02-11 03:29] LABS: Magnesium 2.1 mg/dL (1.6-2.6); Phosphorous 4.3 mg/dL (2.7-4.5)
[2022-02-11 03:30] LABS: BUN/Creatinine Ratio 18 (6-26); Blood Urea Nitrogen 23 mg/dL (8-23); Calcium 8.5 mg/dL (8.6-10.3); Carbon Dioxide 27 mEq/L (23-29); Chloride 105 mEq/L (98-107); Glucose 140 mg/dL (70-105); Osmolality,Calculated 298 (280-300); Potassium 3.7 mEq/L (3.5-5.1); Sodium 141 mEq/L (136-145); eGFR For African Americans > 60 (> 60); eGFR For Non-African Americans 52 (> 60)
[2022-02-11] MEDS: Ipratropium 1 PUFF INHALER IH SCH ×2 (03:37→09:38)
[2022-02-11 03:39] LABS: Anisocytosis 2+ (Not Present); Microcytosis Present (Not Present); Platelet Estimate Decreased (Normal); Reactive Lymphocytes Present (Not Present)
[2022-02-11] MEDS: lisinopriL 20 MG TABLET PO SCH (09:49)
[2022-02-11] MEDS: predniSONE 20 MG TABLET PO SCH (09:49)
[2022-02-11] MEDS: *HR* Ticagrelor 90 MG TABLET PO SCH (09:49)
[2022-02-11] MEDS: Mirtazapine 15 MG TABLET PO SCH (09:50)
[2022-02-11] MEDS: Metoprolol XL (24 HR) Succ 50 MG TAB.ER.24H PO SCH (09:50)
[2022-02-11 10:37] VITALS: BP 114/70; PULSE 73; TEMP 97.1; O2SAT 98
== END 2022-02-11 12:24 | disposition home health service (06) ==
LOC: 3ANU 11:39 → EMEROOARM 11:39 → SUATTDRO 14:52 → 3ANU 15:35
PROVIDERS: ADMIT Student in an Organized Health Care Education/Training Program; ATTEND Family Medicine

== ENCOUNTER 2022-02-16 16:24 | Inpatient (IN) ==
[2022-02-16 17:22] LABS: Hematocrit 27.3 % (37.5-50.1); Nucleated Red Blood Cells 0.1 /100 WBC (0); Red Cell Distribution Width 22.7 % (11.5-14.5)
[2022-02-16 17:24] LABS: Hemoglobin 8.4 g/dL (12.9-16.9); Immature Platelets 5.3 % (1.1-6.1); Mean Corpuscular HGB Conc 30.8 g/dL (31.6-35.5); Mean Corpuscular Volume 97.5 fL (83.0-100.0); Mean Platelet Volume 9.8 fL (9.4-12.4)
[2022-02-16 17:32] LABS: BUN/Creatinine Ratio 19 (6-26); Blood Urea Nitrogen 15 mg/dL (8-23); Calcium 8.4 mg/dL (8.6-10.3); Carbon Dioxide 30 mEq/L (23-29); Chloride 105 mEq/L (98-107); Glucose 100 mg/dL (70-105); Osmolality,Calculated 295 (280-300); Potassium 4.1 mEq/L (3.5-5.1); Sodium 142 mEq/L (136-145); eGFR For African Americans > 60 (> 60); eGFR For Non-African Americans > 60 (> 60)
[2022-02-16 17:33] LABS: Troponin I 0.03 ng/mL (< 0.04)
[2022-02-16 17:37] LABS: Platelet Count 95 K/mcL (140-400)
[2022-02-16 17:41] LABS: White Blood Count 56.5 K/mcL (4.3-11.1)
[2022-02-16] MEDS ORDERED: 0.9 % Sodium Chloride 500 ML IVC ONE (18:00)
[2022-02-16 18:02] LABS: Lymphocytes # 28.8 K/mcL (0.6-4.6); Monocytes # 1.1 K/mcL (0.0-1.3); Neutrophils # 5.1 K/mcL (1.6-8.9)
[2022-02-16 18:03] LABS: Anisocytosis 2+ (Not Present); Platelet Estimate Decreased (Normal); Smudge Cells Present (Not Present)
[2022-02-16] MEDS ORDERED: Cefepime HCl 2,000 MG in 0.9 % Sodium Chloride 10 ML IVP ONE (18:21)
[2022-02-16] MEDS ORDERED: Vancomycin 1,250 MG/262.5 ML IV.SOLN IVPB ONE (18:25)
[2022-02-16 20:53] LABS: Bacteria,Urine Few per hpf (None-Few); Bilirubin,Urine Negative (Negative); Blood,Urine Negative (Negative); Clarity,Urine Turbid (Clear); Color,Urine Light-Orange (Yellow); Glucose,Urine (UA) Normal (Normal); Ketones,Urine Negative (Negative); Leukocyte Esterase,Urine Small (Negative); Mucus,Urine Few per lpf (None-Few); Nitrite,Urine Negative (Negative); PH,Urine 5.5 pH Units (5.0-8.0); Protein,Urine 100 mg/dL (Neg-Trace); Specific Gravity,Urine 1.027 (1.010-1.025); Squamous Epithelial Cell,Urine Few per hpf (None-Few); WBC,Urine 0-3 per hpf (0-3)
[2022-02-16 21:50] LABS: Adenovirus Not Detected (Not Detect); Coronavirus 229E Not Detected (Not Detect); Coronavirus HKU1 Not Detected (Not Detect); Coronavirus NL63 Not Detected (Not Detect); Coronavirus OC43 Not Detected (Not Detect)
[2022-02-16 21:52] LABS: Bordetella Pertussis Not Detected (Not Detect); Chlamydophila pneumoniae Not Detected (Not Detect); Human Metapneumovirus Not Detected (Not Detect); Human Rhinovirus/Enterovirus DETECTED (Not Detect); Influenza A Subtype 2009 H1 Not Detected (Not Detect); Influenza B Not Detected (Not Detect); Mycoplasma pneumoniae Not Detected (Not Detect); Parainfluenza Virus 1 Not Detected (Not Detect); Parainfluenza Virus 2 Not Detected (Not Detect); Parainfluenza Virus 3 Not Detected (Not Detect); Parainfluenza Virus 4 Not Detected (Not Detect); Respiratory Syncytial Virus Not Detected (Not Detect); SARS-CoV-2 DETECTED (Not Detect)
[2022-02-16] MEDS ORDERED: Naloxone 0.4 MG/ML INJ IVP PRN (22:33)
[2022-02-16] MEDS ORDERED: Melatonin 3 MG TABLET PO PRN (22:33)
[2022-02-16] MEDS ORDERED: Ondansetron ODT 4 MG TAB.RAPDIS SL PRN (22:33)
[2022-02-17] MEDS ORDERED: Benzonatate 100 MG CAPSULE PO PRN (00:53)
[2022-02-17] MEDS: Ipratropium 1 PUFF INHALER IH SCH ×4 (04:09→22:51)
[2022-02-17] MEDS: Piperacillin/Tazobactam 3.375 GM in 0.9 % Sodium Chloride Mini Bag 100 ML IVPB SCH ×3 (05:33→22:14)
[2022-02-17 07:20] LABS: Mean Corpuscular Hemoglobin 30.4 pg (28.0-33.3); Mean Corpuscular Volume 98.1 fL (83.0-100.0)
[2022-02-17 07:22] LABS: Hematocrit 25.5 % (37.5-50.1); Hemoglobin 7.9 g/dL (12.9-16.9); Immature Platelets 5.1 % (1.1-6.1); Mean Platelet Volume 10.5 fL (9.4-12.4); Red Cell Distribution Width 22.8 % (11.5-14.5)
[2022-02-17 07:30] LABS: Platelet Count 74 K/mcL (140-400); White Blood Count 41.7 K/mcL (4.3-11.1)
[2022-02-17 07:51] LABS: Alanine Aminotransferase 6 Units/L (7-52); Albumin 2.9 g/dL (3.5-5.7); Albumin/Globulin Ratio 1.4 (1.1-2.2); Alkaline Phosphatase 115 Units/L (34-104); Aspartate Amino Transferase 21 Units/L (13-39); BUN/Creatinine Ratio 20 (6-26); Bilirubin,Total 1.2 mg/dL (0.3-1.0); Blood Urea Nitrogen 15 mg/dL (8-23); Carbon Dioxide 26 mEq/L (23-29); Chloride 105 mEq/L (98-107); Globulin 2.1 g/dL (2.4-3.5); Glucose 156 mg/dL (70-105); Magnesium 2.1 mg/dL (1.6-2.6); Osmolality,Calculated 294 (280-300); Phosphorous 3.5 mg/dL (2.7-4.5); Potassium 4.3 mEq/L (3.5-5.1); Sodium 140 mEq/L (136-145); eGFR For African Americans > 60 (> 60); eGFR For Non-African Americans > 60 (> 60)
[2022-02-17] MEDS: Metoprolol XL (24 HR) Succ 50 MG TAB.ER.24H PO SCH (08:06)
[2022-02-17] MEDS: MethylPREDNISolone 40 MG/ML VIAL IVP SCH ×2 (08:06→15:52)
[2022-02-17] MEDS: *HR* Ticagrelor 90 MG TABLET PO SCH ×2 (08:06→22:14)
[2022-02-17] MEDS: *HR* Rivaroxaban 10 MG TABLET PO SCH (08:06)
[2022-02-17 08:08] LABS: Eosinophils # 0.4 K/mcL (0.0-0.6); Monocytes # 6.7 K/mcL (0.0-1.3); Neutrophils # 4.6 K/mcL (1.6-8.9)
[2022-02-17 08:09] LABS: Anisocytosis 1+ (Not Present); Platelet Estimate Decreased (Normal); Smudge Cells Present (Not Present)
[2022-02-17] MEDS ORDERED: Ipratropium/Albuterol Neb 3 ML IH PRN (09:10)
[2022-02-17] MEDS ORDERED: Perflutren Lipid Microsphere 1.3 ML in 0.9 % Sodium Chloride 8.7 ML IVP PRN (12:30)
[2022-02-17] MEDS ORDERED: Vancomycin 1,500 MG/265 ML IV.SOLN IVPB SCH (18:00)
[2022-02-17] MEDS: Mirtazapine 15 MG TABLET PO SCH (22:14)
[2022-02-18] MEDS: MethylPREDNISolone 40 MG/ML VIAL IVP SCH ×2 (01:07→10:20)
[2022-02-18] MEDS: Ipratropium 1 PUFF INHALER IH SCH ×3 (03:54→15:43)
[2022-02-18 05:50] LABS: Immature Granulocytes % 0.4 % (0-4); Nucleated Red Blood Cells 0.1 /100 WBC (0)
[2022-02-18 05:52] LABS: Hematocrit 26.5 % (37.5-50.1); Hemoglobin 8.5 g/dL (12.9-16.9); Immature Platelets 6.4 % (1.1-6.1); Lymphocytes % 40.4 %; Mean Corpuscular HGB Conc 32.1 g/dL (31.6-35.5); Mean Corpuscular Hemoglobin 31.3 pg (28.0-33.3); Mean Corpuscular Volume 97.4 fL (83.0-100.0); Monocytes # 18.3 K/mcL (0.0-1.3); Monocytes % 49.4 %; Neutrophils # 3.6 K/mcL (1.6-8.9); Red Blood Count 2.72 M/mcL (4.19-5.50); Red Cell Distribution Width 22.4 % (11.5-14.5); Segmented Neutrophils % 9.8 %
[2022-02-18] MEDS: Piperacillin/Tazobactam 3.375 GM in 0.9 % Sodium Chloride Mini Bag 100 ML IVPB SCH ×3 (06:01→20:59)
[2022-02-18 06:16] LABS: BUN/Creatinine Ratio 24 (6-26); Blood Urea Nitrogen 21 mg/dL (8-23); Calcium 8.4 mg/dL (8.6-10.3); Carbon Dioxide 27 mEq/L (23-29); Chloride 105 mEq/L (98-107); Glucose 178 mg/dL (70-105); Osmolality,Calculated 297 (280-300); Sodium 140 mEq/L (136-145); eGFR For African Americans > 60 (> 60); eGFR For Non-African Americans > 60 (> 60)
[2022-02-18 06:22] LABS: Platelet Count 72 K/mcL (140-400)
[2022-02-18 06:25] LABS: Anisocytosis 2+ (Not Present); Platelet Estimate Decreased (Normal)
[2022-02-18 06:26] LABS: Smudge Cells Present (Not Present)
[2022-02-18] MEDS: Cholecalciferol (D-3) 1,000 UNIT (25MCG) TABLET PO SCH (10:16)
[2022-02-18] MEDS: *HR* Rivaroxaban 10 MG TABLET PO SCH (10:16)
[2022-02-18] MEDS: *HR* Ticagrelor 90 MG TABLET PO SCH ×2 (10:16→20:59)
[2022-02-18] MEDS: Metoprolol XL (24 HR) Succ 50 MG TAB.ER.24H PO SCH (10:16)
[2022-02-18 12:13] LABS: INR 2.1; Prothrombin Time 22.8 Seconds (9.4-12.1)
[2022-02-18 12:15] LABS: Activated Partial Thrombo Time 32.6 Seconds (26.0-36.0)
[2022-02-18 12:20] LABS: Uric Acid 5.1 mg/dL (2.3-7.6)
[2022-02-18] MEDS: Ipratropium/Albuterol Neb 3 ML IH SCH ×2 (15:43→22:38)
[2022-02-18] MEDS: allopurinoL 300 MG TABLET PO SCH (18:13)
[2022-02-18] MEDS: Mirtazapine 15 MG TABLET PO SCH (20:59)
[2022-02-19 01:48] LABS: Mean Corpuscular Volume 95.9 fL (83.0-100.0); Nucleated Red Blood Cells 0.2 /100 WBC (0)
[2022-02-19 01:50] LABS: Hematocrit 25.7 % (37.5-50.1); Hemoglobin 8.1 g/dL (12.9-16.9); Immature Platelets 6.8 % (1.1-6.1); Mean Corpuscular HGB Conc 31.5 g/dL (31.6-35.5); Mean Corpuscular Hemoglobin 30.2 pg (28.0-33.3); Mean Platelet Volume 10.8 fL (9.4-12.4); Red Blood Count 2.68 M/mcL (4.19-5.50); Red Cell Distribution Width 22.6 % (11.5-14.5)
[2022-02-19 01:51] LABS: Platelet Count 75 K/mcL (140-400)
[2022-02-19 01:53] LABS: White Blood Count 40.1 K/mcL (4.3-11.1)
[2022-02-19 03:40] LABS: Lymphocytes # 36.5 K/mcL (0.6-4.6); Monocytes # 1.2 K/mcL (0.0-1.3); Neutrophils # 1.6 K/mcL (1.6-8.9); Platelet Estimate Decreased (Normal); Smudge Cells Present (Not Present)
[2022-02-19 03:41] LABS: Reactive Lymphocytes Present (Not Present)
[2022-02-19] MEDS: Ipratropium/Albuterol Neb 3 ML IH SCH ×4 (03:42→20:54)
[2022-02-19 05:09] LABS: BUN/Creatinine Ratio 28 (6-26); Blood Urea Nitrogen 24 mg/dL (8-23); Calcium 8.3 mg/dL (8.6-10.3); Carbon Dioxide 25 mEq/L (23-29); Chloride 106 mEq/L (98-107); Glucose 110 mg/dL (70-105); Osmolality,Calculated 295 (280-300); Potassium 4.1 mEq/L (3.5-5.1); Sodium 140 mEq/L (136-145); eGFR For African Americans > 60 (> 60); eGFR For Non-African Americans > 60 (> 60)
[2022-02-19] MEDS: Piperacillin/Tazobactam 3.375 GM in 0.9 % Sodium Chloride Mini Bag 100 ML IVPB SCH ×3 (05:52→16:55)
[2022-02-19] MEDS: *HR* Ticagrelor 90 MG TABLET PO SCH ×2 (08:17→21:40)
[2022-02-19] MEDS: predniSONE 20 MG TABLET PO SCH (08:17)
[2022-02-19] MEDS: allopurinoL 300 MG TABLET PO SCH (08:18)
[2022-02-19] MEDS: Cholecalciferol (D-3) 1,000 UNIT (25MCG) TABLET PO SCH (08:18)
[2022-02-19] MEDS: Metoprolol XL (24 HR) Succ 50 MG TAB.ER.24H PO SCH (08:18)
[2022-02-19] MEDS: *HR* Rivaroxaban 10 MG TABLET PO SCH (08:18)
[2022-02-19] MEDS ORDERED: 0.9 % Sodium Chloride Mini Bag 100 ML ONE ×2 (15:01→15:02)
[2022-02-19] MEDS ORDERED: *HR* LORazepam 0.5 MG TABLET PO PRN (15:49)
[2022-02-19] MEDS ORDERED: haloperidoL 1 MG TABLET PO PRN (15:55)
[2022-02-19] MEDS: Mirtazapine 15 MG TABLET PO SCH (21:40)
[2022-02-20] MEDS: Ipratropium/Albuterol Neb 3 ML IH SCH ×2 (03:54→10:04)
[2022-02-20] MEDS: allopurinoL 300 MG TABLET PO SCH (07:55)
[2022-02-20] MEDS: *HR* Rivaroxaban 10 MG TABLET PO SCH (07:55)
[2022-02-20] MEDS: predniSONE 20 MG TABLET PO SCH (07:56)
[2022-02-20] MEDS: Cholecalciferol (D-3) 1,000 UNIT (25MCG) TABLET PO SCH (07:56)
[2022-02-20] MEDS: Metoprolol XL (24 HR) Succ 50 MG TAB.ER.24H PO SCH (07:56)
[2022-02-20] MEDS: *HR* Ticagrelor 90 MG TABLET PO SCH (07:56)
[2022-02-20 10:06] VITALS: O2SAT 98
[2022-02-20 11:24] VITALS: BP 121/62; PULSE 70; TEMP 98.1
== END 2022-02-20 12:32 | disposition hospice, home (50) | DRG 194 ==
LOC: EMEROOARM 16:24 → 3ANU 16:24 → SUATTDRO 20:35 → 3ANU 21:01 → SUATTDRO 02-18 13:11
PROVIDERS: ADMIT Student in an Organized Health Care Education/Training Program; ATTEND Internal Medicine